=== PATIENT | male | born 1970 | race Caucasian/White ===

== ENCOUNTER 2020-04-03 20:48 | Inpatient (IN) ==
--- NOTE | 2020-04-03 21:03 | ED Telehealth Note ---
Telehealth Telehealth Telehealth Options: 2-way audio and video For the duration of the visit, provider was performing the assessment from: A different facility than the patient After establishing a telemedicine visit, patient was: Patient was verified with two unique identifiers, Patient/authorized rep acknowledged consent and understanding and Gave permission to continue telehealth session Impression & Plan Cellulitis Note/Exam/Outcome Date of Service April 03, 2020 ED Telehealth Outcome Referred to ED for in person visit ED Visit Note This is a 49-year-old male who presents to telehealth over concerns of the patient has a large wound to the right lower extremity. The patient is brought in by his sister. The sister notes that the patient does not normally see a doctor and does not take anything for diabetes blood pressure. I am concerned that the patient has bilateral leg swelling and may be suffering from congestive heart failure as well as cellulitis. I did review all of these concerns including my concern about hypertension with the patient. He does not normally see a doctor and is not plugged in with a doctor. Based on the wound to the leg I strongly recommended that the patient come to the emergency department and be started on IV antibiotics. Patient and sister are agreeable to coming in. General General: + awake, + alert, + tired, + ill appearing, + intoxicated appearing and + well appearing ENT ENT: + moist mucous membranes and + normal nose Eyes Eyes: + conjunctivae normal, + scleral icterus, + pupils pinpoint, + pupils dilated and + EOMI Neck Neck: + visual inspection of neck normal and + FROM Respiratory Respiratory: + normal respiratory effort Cardiac Cardiac: + peripheral edema GI GI: + distended Muskuloskeletal Muskuloskeletal: + head normocephalic, atraumatic Additional Notes: Large wound to Rt calf, swollen and weaping Neuro Neuro: + normal sensorium, + oriented x 3, + speech normal and + tower director II-XII intact bilaterally Skin Skin: + ecchymosis and + wound (Rt calf) Psych Psych: + appropriate, + normal mood, + normal affect and + normal thought process Past Med/Surg History Social History Smoking Status: Never smoker Preferred Language: Syriac Feels Safe at Home: Yes Allergies Allergies Allergy/AdvReac Type Severity Reaction Status Date / Time [id number] Allergy Unknown Uncoded 04/12/02 19:52 N Allergy Unknown Uncoded 04/12/02 19:52 Results & Data (ED) Laboratory Data Result diagrams: 04/03/20 22:30 04/03/20 22:30 Discharge Plan Visit Data Chief Complaint: Wound Stated Complaint: RT LEG WOUND, LE EDEMA, TOES TURNING PURPLE ED Provider: Abiel Campos Discharge Problem: Cellulitis Discharge Instructions Interventions: ED Discharge Assessment Last Done: 04/04/20 00:42 Forms Stand Alone Forms: [employer] Prescriptions Prescriptions: No Action ibuprofen 200 mg Tablet 200 mg PO Q6H PRN (Reason: Fever Or Pain) RF: 0 Referrals Referrals: PCP,NO [Primary Care Provider] - Discharge Problem: Cellulitis Qualifiers: Site of cellulitis: extremity Site of cellulitis of extremity: lower extremity Laterality: right Qualified Code(s): L03.115 - Cellulitis of right lower limb
[2020-04-03] MEDS ORDERED: PIPERACILLIN/TAZOBACTAM 4.5 GM/120 ML BAG IV ONE (22:33)
[2020-04-03] MEDS ORDERED: PIPERACILL/TAZOBAC CONSULT ACTIVE PRN (22:33)
[2020-04-03 22:44] LABS: Basophils # (auto) 0.01 K/uL (0-0.2); Basophils % (auto) 0.1 %; Eosinophils # (auto) 0.01 K/uL (0-0.5); Eosinophils % (auto) 0.1 %; Hematocrit (blood only) 44.6 % (42-52); Hemoglobin 14.4 g/dL (14.0-18.0); Immature Granulocytes # (auto) 0.03 K/uL (0.00-0.02); Immature Granulocytes % (auto) 0.3 %; Lymphocytes # (auto) 0.91 K/uL (1.2-3.4); Lymphocytes % (auto) 8.3 %; Mean Corpuscular Hgb Conc 32.3 g/dL (32-36); Mean Corpuscular Volume 86.8 fL (80-100); Mean Platelet Volume 13.4 fL (7.4-10.4); Monocytes # (auto) 0.98 K/uL (0.11-0.59); Neutrophils # (auto) 8.98 K/uL (1.4-6.5); Neutrophils % (auto) 82.2 %; Platelet Count 164 K/uL (130-400); RDW Coefficient of Variation 15.7 % (11.5-14.5); RDW Standard Deviation 50.2 fL (36.4-46.3); Red Blood Count 5.14 M/uL (4.7-6.1); White Blood Count 10.92 K/uL (4.8-10.8)
[2020-04-03] MEDS ORDERED: ONDANSETRON INJ 2 MG/ML 2 ML VIAL IV STA (22:57)
[2020-04-03] MEDS ORDERED: ACETAMINOPHEN 500 MG TAB PO STA (22:57)
[2020-04-03 23:01] LABS: Albumin Level 3.4 gm/dl (3.4-5.0); BUN Creatinine Ratio 17.1 (10-20); Calcium 9.1 mg/dl (8.5-10.1); Creatinine Clr Calc Pharmacy 96.3 ml/min; Est GFR (African American) 77.5; Est GFR (Non-African American) 66.8; Magnesium 2.1 mg/dl (1.8-2.4); Potassium 3.6 mmol/L (3.5-5.1)
[2020-04-03 23:06] LABS: Albumin Globulin Ratio 0.7 (0.9-2); Bilirubin,Total 0.9 mg/dl (0.2-1); Globulin 4.7 gm/dl (2.5-4.0); Total Protein 8.1 gm/dl (6.4-8.2); Troponin I 0.021 ng/ml (0-0.045)
[2020-04-03] MEDS: HYDROmorphone INJ 1 MG/ML SYRINGE IV PRN (23:10)
[2020-04-03 23:28] LABS: INR 1.3 (0.9-1.1); Partial Thromboplastin Time 27.4 Seconds (21.0-31.0); Prothrombin Time 12.7 Seconds (9.0-12.0)
[2020-04-03] MEDS ORDERED: VANCOMYCIN CONSULT ACTIVE PRN (23:55)
[2020-04-03] MEDS ORDERED: VANCOMYCIN HCL 1,000 MG in SODIUM CHLORIDE 0.9% 250 ML IV SCH (23:55)
--- NOTE | 2020-04-03 23:56 | History & Physical Report ---
Date of Service April 03, 2020 Assessment & Plan (1) Cellulitis: 49 yo M with no significant PMHx admitted for RLE cellulitis and dyspnea on exertion, noted to have bilateral pleural effusions on imaging. RLE cellulitis/wound: - Wound and blood cultures collected. Patient started on vanc/Zosyn. - Wound care nurse consult placed. - Suspect fairly rapid deescalation of antibiotics to orals when appropriate for discharge. Dyspnea on exertion/bilateral pleural effusions: - Noted on CXR and CTPE to have moderate sized bilateral pleural effusions. - Saturating well on room air, defer thoracentesis given bilateral and symmetric nature. - No history of CHF, TTE ordered for AM. - Possible element of OHS given BMI. Patient did not endorse snoring, may need evaluation for SOHA as well. - Lasix 40mg IV x1 given. Hyperglycemia: - Patient with BSG 130s on admission. - With morbid obesity as risk factor for diabetes. - A1c ordered with morning labs. HTN: - Noted in ER to have mild HTN. - Defer to PCP regarding management. Code Status: Full Code FEN/GI: Regular diet DVT ppx: Heparin 5000u q8h Dispo: Med/Surg for IV Abx, wound care consult, TTE in AM (2) Bilateral pleural effusion: (3) Dyspnea on exertion: (4) Hyperglycemia: History of Present Illness Chief Complaint: RLE wound, increased dyspnea on exertion Primary Care Provider: NO PCP 49-year-old male with no significant past medical history presented to ER via telemedicine visit for RLE wound. Reports that he started noticing on the back of his calf a small wound about a week ago, does not recall any trauma to the area, some yellowish drainage. Over the last several days it has grown in size. This was noticed by his sister and his mother and he was urged to seek medical treatment. After telemedicine visit with Dr. Campos patient was advised to come into ER for evaluation. On my interview, patient reports that over the last several weeks to months he has had dyspnea on exertion, specifically with walking up stairs such that he will have to stop and catch his breath after going to the top of the stairs which prior to this was unusual for him. No orth opnea. No known history of CHF. In the ER he had a CXR which showed findings suggestive of pleural effusion bilaterally. CT PE protocol performed given RLE swelling and erythema and shortness of breath, which showed atelectasis and moderate sized pleural effusions bilaterally. No PE noted. Ultrasound right lower extremity did not show signs suggestive of DVT. Lab work showed mild leukocytosis to 10.92, mildly elevated BSG to 130s. Patient was given one-time dose Dilaudid for right lower extremity pain and given Zosyn. Allergies Allergy/AdvReac Type Severity Reaction Status Date / Time No Known Drug Allergies Allergy . Verified 04/03/20 22:14 [id number] Allergy Unknown Unknown Uncoded 04/03/20 22:14 Home Medications Medication Instructions Recorded Confirmed Type ibuprofen 200 mg PO Q6H PRN 04/03/20 04/03/20 History Past Med/Surg History Social History Smoking Status: Never smoker Second Hand Exposure: No; Do You Dip or Chew Tobacco: No; Hx Alcohol Use: Yes Alcohol type: beer Hx Substance Use: No Preferred Language: Albanian Communication Ability: Effective Returns Processor Required: No Beliefs That Will Affect Care: None Current Living Situation: Parent Current Living Situation Comment: Lives with mother Other Information That Helps Us Care for You: No Feels Safe at Home: Yes Safety Concerns: Feels Safe At This Time Assistive Devices: Glasses Review of Systems Review of Systems: All systems reviewed & are unremarkable except as noted in HPI & below Constitutional: no fever, no chills and no malaise Respiratory: + dyspnea on exertion; no cough Cardiovascular: + edema (Bilateral lower extremities); no chest pain and no palpitations Gastrointestinal: no abdominal pain, no constipation and no diarrhea/loose stools Physical Exam Constitutional: well developed and + morbidly obese; no acute distress Eyes: PERRL, conjunctivae normal, anicteric sclerae ENMT: external ear and nose normal, oropharynx normal Neck: + short neck Respiratory: Poor air movement throughout, decreased breath sounds right > left. No wheezes noted. No cough. Noted to be saturating to 92% on room air. Cardiovascular: Rate/Rhythm: regular rhythm and + tachycardic Heart Sounds: no murmur Extremities: + edema (To mid sykes, 1+) Gastrointestinal (Abdomen): Inspection/Auscultation: + abdomen distended Percussion/Palpation: abdomen soft; abdomen nontender Musculoskeletal: No cyanosis or clubbing Skin: Posterior right lower extremity with 6x6cm wound with granulation tissue, with surrounding 1-2cm erythema. Tender and warm to the touch. Neurologic: AAOx3, normal speech. Bilateral UE, LE, and face without sensory or motor deficits. No tremor. Psychiatric: A+Ox3, euthymic affect Results & Data Results & Data ([facility]) Vital Signs (Past 12 Hours) Vital Signs Temp Pulse Resp BP BP Pulse Ox 04/03/20 22:33 16 144/92 H 98 04/03/20 21:59 36.3 C L 123 H 20 170/111 H 98 Code Status & VTE Plan VTE Prophylaxis Plan VTE Prophylaxis will be ordered: Yes Supervising Physician Co-Signing Physician Notes Attending addendum: I have physically seen this patient, have supervised the medical residents activities, and agree with the H&P unless as otherwise noted. Assessment and Plan: Right lower extremity cellulitis/wound- Empiric vancomycin IV and Zosyn IV Follow wound cultures and blood cultures Wound care consult Bilateral pleural effusions/dyspnea on exertion- Give Lasix 40 mg IV tonight Order echocardiogram to assess ejection fraction Hyperglycemia- Check hemoglobin A1c for BSG's 130s upon admission Morbid obesity- Risk factor modification Remaining orders and notations as noted Resident Activity Tracking Resident Involvement: Resident Care Provided Care Provided: Adult Hospital Medicine (1) Cellulitis Laterality: right Site of cellulitis: extremity Site of cellulitis of extremity: lower extremity Qualified Code(s): L03.115 - Cellulitis of right lower limb
[2020-04-04] MEDS ORDERED: OPTIRAY 320 125ml IV ONE (00:04)
--- NOTE | 2020-04-04 00:11 | Emergency Department Note ---
History of Present Illness General Chief complaint: Wound Stated complaint: RT LEG WOUND, LE EDEMA, TOES TURNING PURPLE Time Seen by Provider: 04/03/20 20:54 Source: patient, family (sister), RN notes reviewed and old records reviewed Mode of arrival: ambulatory Limitations: no limitations History of Present Illness Provider complaint: Leg wound Onset (ago): day(s) 2 Location: lower extremity and right Radiation: extremity Severity: moderate Pain Consistency: + constant Maximum Pain Intensity: 8 Current Pain Intensity: 8 Quality: + aching Relieved By: + immobilization and + rest Exacerbated By: + movement Associated symptoms: no chest pain, no fever/chills, no headaches, no nausea/vomiting, no shortness of breath and no weakness Treatments prior to arrival: none This is a 49-year-old male who presents the emergency department complaining of pain to the right lower extremity. The patient has a large wound here that developed in the past day. In addition to the wound the patient does not follow-up with a primary care physician. His blood pressure is here noted to be elevated Home Medications Medication Instructions Recorded Confirmed Type ibuprofen 200 mg PO Q6H PRN 04/03/20 04/03/20 History Allergies Allergy/AdvReac Type Severity Reaction Status Date / Time No Known Drug Allergies Allergy . Verified 04/03/20 22:14 [id number] Allergy Unknown Unknown Uncoded 04/03/20 22:14 Past Med/Surg History Social History Smoking Status: Never smoker Preferred Language: Yemeni Feels Safe at Home: Yes Review of Systems A total of 10 systems reviewed and were otherwise negative Physical Exam Vital Signs Vital Signs - 24 hr 04/03/20 21:59 04/03/20 22:33 04/03/20 23:03 Temperature 36.3 C L Temperature Source Temporal Artery Scan Pulse Rate 123 H Respiratory Rate 20 16 Respiratory Effort / Characteristics Non-Labored Spontaneous Non-Labored Spontaneous Respiratory Depth Normal Normal Blood Pressure 170/111 H Blood Pressure [Right Arm] 144/92 H Blood Pressure Mean 130 Blood Pressure Mean [Right Arm] 109 Pulse Oximetry 98 98 Oxygen Delivery Method Room Air Room Air Sepsis Recent Fever Within 48 Hours No Sepsis New/Unexplained Change in Mental Status N/A Sepsis Action Taken by Nursing No Action Required 04/03/20 23:30 Temperature Temperature Source Pulse Rate Respiratory Rate Respiratory Effort / Characteristics Non-Labored Spontaneous Respiratory Depth Blood Pressure Blood Pressure [Right Arm] Blood Pressure Mean Blood Pressure Mean [Right Arm] Pulse Oximetry Oxygen Delivery Method Sepsis Recent Fever Within 48 Hours Sepsis New/Unexplained Change in Mental Status Sepsis Action Taken by Nursing VITAL SIGNS - Vital signs and nursing notes were reviewed. GENERAL - 49-year-old male appearing stated age who is in no acute distress. Communicates well with provider and answers questions appropriately. SKIN - Rt calf wound approx 6"x4" HEAD - NC/AT. EYES - PERRL with EOMI bilaterally. Sclera anicteric. Palpebral conjunctiva pink and moist with no injection noted. EARS - No deformities of external structures noted on gross examination bilaterally. NOSE - Midline and without cyanosis. No epistaxis or purulent drainage noted. Septum midline without deviation or septal hematoma noted. MOUTH/OROPHARYNX - Without perioral cyanosis. Buccal mucosa pink and moist and without leukoplakia. Tongue midline with equal elevation of palate bilaterally. No tonsillar hypertrophy, erythema, or exudates noted. dentition noted. NECK - Neck with FROM. Supple to palpation. lymphadenopathy noted. No nuchal rigidity. LUNGS - Chest wall symmetric without accessory muscle use, intercostals retractions, or central cyanosis. Normal vesicular breath sounds CTA B/L. No wheezes, rales, or rhonchi appreciated. CARDIAC - RRR with S1/S2. No murmur, rubs, or gallops appreciated. ABDOMEN - Abdominal contour without pulsations or visible masses. BS normoactive all four quadrants. No tenderness, palpable masses, hepatosplenomega ly, or ascites noted. EXTREMITIES - +2 pitting edema b/l extremities NEUROLOGIC - Cranial nerves II through XII grossly intact. Sensory intact to light touch throughout. Patellar reflexes +2/4. PSYCH - A&Ox3 and cooperates fully with examiner. Pt is very pleasant and interacts well with examiner. Course Administered Medications Hydromorphone HCl (Hydromorphone Inj 1 Mg/Ml Syringe) 1 mg IV Q15M PRN PRN Reason: Pain Stop: 04/17/20 22:56 Last Admin: 04/04/20 00:24 Dose: 1 mg Documented by: [id number] Admin: 04/03/20 23:10 Dose: 1 mg Documented by: [id number] Vancomycin HCl 1,000 mg/ (Sodium Chloride) 270 mls @ 200 mls/hr IV Q12H [facility]; Protocol Stop: 04/10/20 23:54 Last Admin: 04/04/20 00:20 Dose: 200 mls/hr Documented by: [id number] Discontinued Medications Acetaminophen (Acetaminophen 500 Mg Tab) 1,000 mg PO NOW STA Stop: 04/03/20 22:58 Last Admin: 04/03/20 23:10 Dose: 1,000 mg Documented by: [id number] Piperacillin Sod/Tazobactam Sod (Zosyn) 4.5 gm in 120 mls @ 240 mls/hr IV NOW ONE Stop: 04/03/20 23:02 Last Infusion: 04/03/20 23:39 Dose: 0 mls/hr Documented by: [id number] Admin: 04/03/20 23:09 Dose: 240 mls/hr Documented by: [id number] Ioversol (Optiray 320 125ml) 125 ml IV ONCE ONE Stop: 04/04/20 00:05 Last Admin: 04/04/20 00:04 Dose: 95 ml Documented by: [id number] Ondansetron HCl (Ondansetron Inj 2 Mg/Ml 2 Ml Vial) 4 mg IV NOW STA Stop: 04/03/20 22:58 Last Admin: 04/03/20 23:10 Dose: 4 mg Documented by: [id number] Medical Decision Making Differential Diagnosis Cellulitis, abscess, MRSA infection, DVT, necrotizing fasciitis, dermatitis, drug eruption, allergic reaction, as well as other pathologies. Medical Records Attestation: I reviewed the patient's medical records. Home Medications Current Medication List: was personally reviewed by me Laboratory Data Attestation: I reviewed the patient's lab results. Result diagrams: 04/03/20 22:30 04/03/20 22:30 Lab Results 04/03/20 04/03/20 04/03/20 Range/Units 22:30 22:30 22:30 WBC 10.92 H (4.8-10.8) K/uL RBC 5.14 (4.7-6.1) M/uL Hgb 14.4 (14.0-18.0) g/dL Hct 44.6 (42-52) % MCV 86.8 (80-100) fL MCH 28.0 (25-34) pg MCHC 32.3 (32-36) g/dL RDW Std Deviation 50.2 H (36.4-46.3) fL RDW Coeff of Rupinder 15.7 H (11.5-14.5) % Plt Count 164 (130-400) K/uL MPV 13.4 H (7.4-10.4) fL Immature Gran % (Auto) 0.3 % Neut % (Auto) 82.2 % Lymph % (Auto) 8.3 % Josephine % (Auto) 9.0 % Eos % (Auto) 0.1 % Baso % (Auto) 0.1 % Neut # (Auto) 8.98 H (1.4-6.5) K/uL Lymph # (Auto) 0.91 L (1.2-3.4) K/uL Josephine # (Auto) 0.98 H (0.11-0.59) K/uL Eos # (Auto) 0.01 (0-0.5) K/uL Baso # (Auto) 0.01 (0-0.2) K/uL Immature Gran # (Auto) 0.03 H (0.00-0.02) K/uL PT (9.0-12.0) Seconds INR (0.9-1.1) APTT (21.0-31.0) Seconds PTT Ratio Sodium 139 (136-145) mmol/L Potassium 3.6 (3.5-5.1) mmol/L Chloride 107 (98-107) mmol/L Carbon Dioxide 24 (21-32) mmol/L Anion Gap 8.0 (3-11) BUN 22 H (7-18) mg/dl Creatinine 1.27 (0.6-1.4) mg/dl Est Cr Clr Drug Dosing 96.3 ml/min Est GFR ( Amer) 77.5 Est GFR (Non-Af Amer) 66.8 BUN/Creatinine Ratio 17.1 (10-20) Glucose 128 H (70-99) mg/dl Lactate 1.6 (0.4-2.0) mmol/L Calcium 9.1 (8.5-10.1) mg/dl Magnesium 2.1 (1.8-2.4) mg/dl Total Bilirubin 0.9 (0.2-1) mg/dl AST 11 L (15-37) U/L ALT 15 (12-78) U/L Alkaline Phosphatase 91 (45-117) U/L Troponin I 0.021 (0-0.045) ng/ml Total Protein 8.1 (6.4-8.2) gm/dl Albumin 3.4 (3.4-5.0) gm/dl Globulin 4.7 H (2.5-4.0) gm/dl Albumin/Globulin Ratio 0.7 L (0.9-2) Procalcitonin (0-0.5) ng/ml COVID-19 Eval Order SARS-CoV-2, RNA, NAAT (NEGATIVE) 04/03/20 04/03/20 04/03/20 Range/Units 22:52 22:52 23:19 WBC (4.8-10.8) K/uL RBC (4.7-6.1) M/uL Hgb (14.0-18.0) g/dL Hct (42-52) % MCV (80-100) fL MCH (25-34) pg MCHC (32-36) g/dL RDW Std Deviation (36.4-46.3) fL RDW Coeff of Rupinder (11.5-14.5) % Plt Count (130-400) K/uL MPV (7.4-10.4) fL Immature Gran % (Auto) % Neut % (Auto) % Lymph % (Auto) % Josephine % (Auto) % Eos % (Auto) % Baso % (Auto) % Neut # (Auto) (1.4-6.5) K/uL Lymph # (Auto) (1.2-3.4) K/uL Josephine # (Auto) (0.11-0.59) K/uL Eos # (Auto) (0-0.5) K/uL Baso # (Auto) (0-0.2) K/uL Immature Gran # (Auto) (0.00-0.02) K/uL PT 12.7 H (9.0-12.0) Seconds INR 1.3 H (0.9-1.1) APTT 27.4 (21.0-31.0) Seconds PTT Ratio 1.0 Sodium (136-145) mmol/L Potassium (3.5-5.1) mmol/L Chloride (98-107) mmol/L Carbon Dioxide (21-32) mmol/L Anion Gap (3-11) BUN (7-18) mg/dl Creatinine (0.6-1.4) mg/dl Est Cr Clr Drug Dosing ml/min Est GFR ( Amer) Est GFR (Non-Af Amer) BUN/Creatinine Ratio (10-20) Glucose (70-99) mg/dl Lactate (0.4-2.0) mmol/L Calcium (8.5-10.1) mg/dl Magnesium (1.8-2.4) mg/dl Total Bilirubin (0.2-1) mg/dl AST (15-37) U/L ALT (12-78) U/L Alkaline Phosphatase (45-117) U/L Troponin I (0-0.045) ng/ml Total Protein (6.4-8.2) gm/dl Albumin (3.4-5.0) gm/dl Globulin (2.5-4.0) gm/dl Albumin/Globulin Ratio (0.9-2) Procalcitonin < 0.05 (0-0.5) ng/ml COVID-19 Eval [id number] SARS-CoV-2, RNA, NAAT (NEGATIVE) 04/03/20 Range/Units 23:19 WBC (4.8-10.8) K/uL RBC (4.7-6.1) M/uL Hgb (14.0-18.0) g/dL Hct (42-52) % MCV (80-100) fL MCH (25-34) pg MCHC (32-36) g/dL RDW Std Deviation (36.4-46.3) fL RDW Coeff of Rupinder (11.5-14.5) % Plt Count (130-400) K/uL MPV (7.4-10.4) fL Immature Gran % (Auto) % Neut % (Auto) % Lymph % (Auto) % Josephine % (Auto) % Eos % (Auto) % Baso % (Auto) % Neut # (Auto) (1.4-6.5) K/uL Lymph # (Auto) (1.2-3.4) K/uL Josephine # (Auto) (0.11-0.59) K/uL Eos # (Auto) (0-0.5) K/uL Baso # (Auto) (0-0.2) K/uL Immature Gran # (Auto) (0.00-0.02) K/uL PT (9.0-12.0) Seconds INR (0.9-1.1) APTT (21.0-31.0) Seconds PTT Ratio Sodium (136-145) mmol/L Potassium (3.5-5.1) mmol/L Chloride (98-107) mmol/L Carbon Dioxide (21-32) mmol/L Anion Gap (3-11) BUN (7-18) mg/dl Creatinine (0.6-1.4) mg/dl Est Cr Clr Drug Dosing ml/min Est GFR ( Amer) Est GFR (Non-Af Amer) BUN/Creatinine Ratio (10-20) Glucose (70-99) mg/dl Lactate (0.4-2.0) mmol/L Calcium (8.5-10.1) mg/dl Magnesium (1.8-2.4) mg/dl Total Bilirubin (0.2-1) mg/dl AST (15-37) U/L ALT (12-78) U/L Alkaline Phosphatase (45-117) U/L Troponin I (0-0.045) ng/ml Total Protein (6.4-8.2) gm/dl Albumin (3.4-5.0) gm/dl Globulin (2.5-4.0) gm/dl Albumin/Globulin Ratio (0.9-2) Procalcitonin (0-0.5) ng/ml COVID-19 Eval Order SARS-CoV-2, RNA, NAAT NEGATIVE (NEGATIVE) Imaging Data Radiologist's Impression: 1 view of the chest was interpreted by me and is co ncerning for what appears to be a right-sided pleural effusion. CTA of the chest: Exam is limited for evaluation of the distal pulmonary arteries which are suboptimally visualized due to breathing artifact. No pulmonary embolus or aortic dissection. Moderate to large bilateral pleural effusions. Bilateral lower lobe atelectasis. Right middle lobe atelectasis. Vascular crowding. Mild cardiomegaly. Degenerative disease of the spine. Ascites otherwise the visualized upper abdominal structures are unremarkable. ECG Data Attestation: I personally reviewed and interpreted this ECG as follows: Indication: + SOB/dyspnea Rate (beats per minute): 105 Rhythm: + sinus tachycardia ECG Intervals/blocks: + Normal QT-c (481) ECG Findings: + Q waves (Septal) Comparison ECG Date: no prior available MDM Narrative Patient was seen and evaluated as above in room C7. Review was performed of nursing notes and vital signs. I did review pertinent previous visits and patient history. After obtaining a thorough history and physical examination the above work up was performed. This is a 49-year-old male who presents emergency department with concerns about a wound to his right lower extremity. In addition the patient is hypertensive. His troponin is also elevated his EKG is concerning for an old infarct. I did discuss all these findings with the hospitalist service who did agree to meet the patient in the meantime the patient was started on broad-spectrum antibiotics including Zosyn and daptomycin. He was given Dilaudid as well as Tylenol for the pain. Repeat examination revealed improvement the patient's symptoms. An order was placed for continuous cardiac monitoring. The monitor shows a rate of 100 with Normal Sinus rhythm. I attest that I have personally reviewed the patient medication list. The patient was evaluated during a period of high volume and high acuity while the hospital was at overcapacity during the global COVID-19 pandemic, and that diagnosis was suspected/considered upon their initial presentation. Their evaluation, treatment and testing was consistent with current guidelines for patients who present with complaints or symptoms that may be related to COVID- 19. Impression & Plan Cellulitis, Pleural effusion, Abnormal ECG Discharge Plan Visit Data Chief Complaint: Wound Stated Complaint: RT LEG WOUND, LE EDEMA, TOES TURNING PURPLE ED Provider: Abiel Campos Discharge Problem: Cellulitis, Pleural effusion, Abnormal ECG Patient Disposition: Admitted As Inpatient Discharge Instructions Interventions: ED Discharge Assessment Last Done: 04/04/20 00:42 Discharge Problem: Cellulitis Qualifiers: Site of cellulitis: extremity Site of cellulitis of extremity: lower extremity Laterality: right Qualified Code(s): L03.115 - Cellulitis of right lower limb
[2020-04-04] MEDS: HYDROmorphone INJ 1 MG/ML SYRINGE IV PRN (00:24)
[2020-04-04] MEDS ORDERED: ONDANSETRON INJ 2 MG/ML 2 ML VIAL IV PRN (01:30)
[2020-04-04] MEDS ORDERED: POLYETHYLENE (MIRALAX) 17 GM PACK PO PRN (01:30)
[2020-04-04] MEDS ORDERED: FUROSEMIDE 40 MG in SYRINGE 0 ML IV ONE (01:35)
[2020-04-04] MEDS ORDERED: VANCOMYCIN HCL 1,750 MG in SODIUM CHLORIDE 0.9% 500 ML IV SCH (02:00)
[2020-04-04] MEDS: PIPERACILLIN/TAZOBACTAM 4.5 GM in DEXTROSE 5% 100 ML IV SCH ×3 (03:52→20:49)
[2020-04-04 05:24] LABS: Appearance Urine Clear (Clear); Bacteria Urine Automated Negative (Negative); Blood Urine Negative (Negative); Color Urine Dark Yellow; Epithelial Cell Urine Auto >30 /lpf (0-5); Glucose Urine UA Negative (Negative); Ketones Urine Negative (Negative); Leukocyte Esterase Urine Trace (Negative); Nitrite Urine Negative (Negative); Protein Urine 2+ (Negative); RBC Urine Automated 0-4 /hpf (0-4); Specific Gravity Urine > 1.045 (1.000-1.030); Urobilinogen Urine Positive (Negative)
[2020-04-04 05:33] LABS: Bilirubin Urine 1+ (Negative)
[2020-04-04 05:47] LABS: Basophils # (auto) 0.01 K/uL (0-0.2); Basophils % (auto) 0.1 %; Hemoglobin 13.3 g/dL (14.0-18.0); Immature Granulocytes # (auto) 0.01 K/uL (0.00-0.02); Immature Granulocytes % (auto) 0.1 %; Lymphocytes # (auto) 0.65 K/uL (1.2-3.4); Lymphocytes % (auto) 6.7 %; Mean Corpuscular Hemoglobin 27.7 pg (25-34); Mean Corpuscular Hgb Conc 31.7 g/dL (32-36); Mean Corpuscular Volume 87.5 fL (80-100); Mean Platelet Volume 13.3 fL (7.4-10.4); Monocytes # (auto) 0.65 K/uL (0.11-0.59); Monocytes % (auto) 6.7 %; Neutrophils # (auto) 8.38 K/uL (1.4-6.5); Neutrophils % (auto) 86.4 %; Platelet Count 156 K/uL (130-400); RDW Coefficient of Variation 15.9 % (11.5-14.5); RDW Standard Deviation 51.4 fL (36.4-46.3)
[2020-04-04] MEDS: HEPARIN SOD 5,000 UNIT/0.5 ML VIAL SQ SCH ×3 (06:18→22:33)
[2020-04-04 06:25] LABS: Albumin Globulin Ratio 0.8 (0.9-2); Albumin Level 3.2 gm/dl (3.4-5.0); BUN Creatinine Ratio 17.3 (10-20); Bilirubin,Total 1.3 mg/dl (0.2-1); Calcium 8.2 mg/dl (8.5-10.1); Creatinine Clr Calc Pharmacy 91.2 ml/min; Est GFR (African American) 73.9; Est GFR (Non-African American) 63.8; Globulin 4.2 gm/dl (2.5-4.0); Total Protein 7.4 gm/dl (6.4-8.2)
--- NOTE | 2020-04-04 07:01 | Ultrasound Report ---
RIGHT LOWER EXTREMITY VENOUS DOPPLER CLINICAL HISTORY: Right leg swelling. COMPARISON STUDY: No previous studies for comparison. TECHNIQUE: Sonography of the deep venous system of the right lower extremity was performed. Compress ion and augmentation were evaluated. FINDINGS: Exam is compromised by suboptimal penetration particularly affecting visualization of the c krzysztof vessels. The right common femoral, superficial femoral and popliteal veins were compressible. Aug mentation was normal. Flow was shown within the deep calf vessels. IMPRESSION: Technically difficult exam but no evidence of deep venous thrombus within the right lower extremity. ACT 112: Negative or not required by law. Electronically signed by: Karthikeyan Freeman M.D. 04/04/2020 6:59 AM
[2020-04-04 07:20] LABS: Potassium 3.7 mmol/L (3.5-5.1)
--- NOTE | 2020-04-04 07:48 | XRay Report ---
SINGLE VIEW CHEST CLINICAL HISTORY: Sepsis. FINDINGS: An AP, portable, upright chest radiograph is obtained. No prior studies are available for c omparison at the time of dictation. The examination is mildly degraded by portable technique and valentine ent rotation. The heart is enlarged. There is pulmonary vascular congestion. There are right larger l eft pleural effusions with bibasilar consolidation. No pneumothorax is seen. The bony thorax is gross ly intact. IMPRESSION: 1. Cardiomegaly with evidence of congestive failure. 2. Right larger than left pleural effusions with bibasilar consolidation. ACT 112: Negative or not required by law. Electronically signed by: Daniel Duran M.D. 04/04/2020 7:46 AM
--- NOTE | 2020-04-04 07:51 | Hospitalist Progress Note ---
Date of Service April 04, 2020 Assessment & Plan (1) Cellulitis: Inder Faith is a 49 yo M with no significant PMHx who was admitted to [facility] on 04/03/2020 for RLE cellulitis and dyspnea on exertion. Gram-Positive Bactermia - wound culture positive for Group G Beta Strep, blood culture positive for GPC in chains x2 --> suspect bacteremia 2/2 cellulitis - given cellulitis as well as new diagnosis of diabetes (see below), continue Vanc/Zosyn. - Wound care consult - TTE without evidence of vegetation - consider ID consult and repeat blood cx for further w/u of endocarditis if not improving with abx Acute on Chronic HFrEF - ROMANO/orthopnea/LE edema for at least several weeks - TTE showed EF 25-30% with severe global hypokinesis of LV - new diagonsis of CHF - received Lasix 40mg IV x1 this AM, dyspnea is improved - consider further diur esis tomorrow - Entresto 24/26mg PO BID and Toprol XL 25mg PO daily - titrate as tolerated - Atorvastatin 40mg PO QAM and baby Aspirin started due to suspicion for ischemic cardiomyopathy - Cardiology consulted for further eval/management Bilateral Pleural Effusions - CTA Chest showing moderate sized bilateral pleural effusions - suspect transudative 2/2 CHF - consider diagnostic/therapeutic thoracentesis in the next few days, earlier if SOB worsens OHS/SOHA - morbid obesity, worsening ROMANO, TTE with elevated RVSP 40-50mmHg - high suspicion for these diagnoses, which may also be exacerbating heart disease - CPAP QHS - sleep study as outpatient T2DM - new diagnosis, A1c 7.4 - SSI while hospitalized - consider Metformin on discharge Dyslipidemia - new diagnosis, HDL 29 and Chol:HDL ratio 5 - Atorvastatin as above HTN - BP up to 170/111 in ED - Started Entresto/Toprol as above Code Status: Full Code FEN/GI: Regular diet DVT ppx: Heparin 5000u SQ Q8H Dispo: Med/Surg (2) Bilateral pleural effusion: (3) Dyspnea on exertion: (4) Hyperglycemia: Admission and Anticipated Discharge Date Admission Date: April 03, 2020 Supervising Physician Co-Signing Physician Notes I personally examined the patient and verified all richardson points of history and exam, discussed case, and agree with decision making with Dr Abelev. Fairly hard to get much of any HPI or review of systems. He has a pleasant demeanor but seems to have a little bit of a hard time understanding the situation, does a lot of nervous laughing and trying to make some jokes, but overall does not seem to have much as far as acute complaints. He does still seem to have a degree of dyspnea on exertion. Obviously still has a large leg ulcer. Vitals noted, in general he is awake alert pleasant no distress. HEENT normocephalic atraumatic mucous membranes moist. Breathing is unlabored no accessory muscle use good effort. Skin shows no pallor or icterus, he does have a large ulcer on the back of his calf that has some redness around it although no true tracking erythema. No focal neuro deficits. Labs and diagnostics noted. Right leg ulcer with gram-positive bacteremiagiven that he is a diabetic and has a distal leg ulcer that was foul-smelling, I at this time I feel compelled to cover for both gram-positive's that seem to be culprit, as well as the polymicrobial potential that is quite high. In that respect continue his current antibiotics for now. Consider switching out Zosyn for cefepime, but I suspect his creatinine will be stable. Echo does not show vegetation, he does not seem to show any bone or joint infections, will check repeat cultures tomorrow, once things are further speciated will ask ID for input as far as ongoing treatment and whether or not a KENDAL might be warranted. Newly diagnosed systolic CHFsuspect this is to a degree chronic possibly subacute at the shortest, given his general mild symptoms in spite of a severely reduced EF and large effusions, there is likely been building for quite some time. Diurese for the pulmonary edema, follow closely with the effusionsprobably at some point will need to at least have the one on the right, but given that he does not have severe dyspnea or acute hypoxia this is nonemergent. Start afterload reduction and beta blockers, diuresis, follow closely. The etiology could range from idiopathic to related to untreated SOHA, to ischemiccertainly he will warrant an ischemic work-up but we will need to take care of the bacteremia first. Appreciate cardiology input, case discussed with Dr. Damon New diagnosis type 2 [id number] is 7.4. Supplemental insulin here in the hospital, hopefully lifestyle change at home. Morbid obesity with a BMI of 48.9probably driving most of his comorbidities. We are trying to discuss not only his diagnoses and medications but also lifestyle change, it seems this will be fairly hard for him to truly comprehend, but he does live with his mother, and his sister is an RN here at the hospital, so hopefully as we enlist help of his family and try to make his plan of care very directed and easy to follow, we can hopefully help improve his situation. Otherwise as above. Subjective No acute events overnight. Reports RLE posterior calf wound worsening for at least 1-2 weeks with associated redness/warmth/tenderness and yellowish drainage. Also reports increasing ROMANO, LE edema, orthopnea for at least several weeks. Denies previous heart attack or heart disease. Denies fever/chills, chest pain/palpitations, current SOB at rest, cough, N/V, diarrhea, abdominal pain. Review of Systems Review of Systems: Pertinent positives and negatives mentioned in HPI. Physical Exam Physical Exam: General: A&Ox3. NAD. Cooperative. Morbidly obese. HEENT: Atraumatic, normocephalic. Pulm: No increased work of breathing/respiratory distress, faint lung sounds and faint crackles in bases bilaterally, -wheezes Cardiac: RRR, -mrg. Radial pulses intact and symmetrical. Abdominal: soft, non-tender, non-distended, BS x 4 Results & Data Results & Data ([facility]) Vital Signs (Past 12 Hours) Vital Signs Temp Pulse Pulse Resp BP BP BP 04/04/20 07:43 36.6 C 113 H 20 133/95 04/04/20 01:36 37.2 C 105 H 20 122/87 04/03/20 22:33 16 144/92 H 04/03/20 21:59 36.3 C L 123 H 20 170/111 H Pulse Ox 04/04/20 07:43 96 04/04/20 01:36 91 04/03/20 22:33 98 04/03/20 21:59 98 Resident Activity Tracking Resident Involvement: Resident Care Provided Care Provided: Adult Hospital Medicine (1) Cellulitis Laterality: right Site of cellulitis: extremity Site of cellulitis of extremity: lower extremity Qualified Code(s): L03.115 - Cellulitis of right lower limb
--- NOTE | 2020-04-04 07:55 | CT Scan Report ---
CT ANGIOGRAPHY OF THE CHEST, PULMONARY EMBOLUS PROTOCOL CLINICAL HISTORY: Lower extremity edema. COMPARISON STUDY: Chest radiograph performed earlier today. TECHNIQUE: Following IV administration of 95 mL of Optiray-320, helical axial images of the chest wer e obtained utilizing the pulmonary embolus protocol. Maximal intensity projections and sagittal and coronal reformats were viewed on an independent 3D workstation. IV contrast was administered without complication. Automated exposure control was utilized for the study. A dose lowering technique was utilized adhering to the principles of ALARA. CT DOSE: 1114.42 mGy.cm FINDINGS: No central or lobar pulmonary emboli are identified. The segmental and subsegmental pulmon amy arteries are suboptimally assessed due to respiratory motion. Note is made of moderate cardiomega ly. There is no pericardial effusion. Caliber of the thoracic aorta is normal. 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 No enlarged thoracic lesions are present. There is no pneum othorax. Large right and small left pleural effusions are noted. Right middle lobe and right lower lo be opacity represents atelectasis. There are mild groundglass opacities within the lungs. Lungs are s uboptimally assessed due to respiratory motion. Visualized portions of the upper abdomen demonstrate a small amount of ascites. There are several splenules. IMPRESSION: 1. No pulmonary emboli identified although segmental and subsegmental pulmonary arteries suboptimally assessed due to respiratory motion. 2. Large right and small left pleural effusions. 3. Moderate cardiomegaly. 4. Groundglass opacities within the lungs which may reflect mild pulmonary edema. 5. Small amount of upper abdominal ascites. ACT 112: Negative or not required by law. Electronically signed by: Karthikeyan Freeman M.D. 04/04/2020 7:54 AM
[2020-04-04 08:02] LABS: Estimated Average Glucose 166 mg/dl; Hemoglobin A1C 7.4 % (4.5-5.6)
[2020-04-04 08:34] LABS: Chol HDL Ratio 5; Cholesterol 136 mg/dl (0-200); HDL Cholesterol 29 mg/dl; LDL Cholesterol Calculated 90 mg/dl; Triglycerides 87 mg/dl (0-150); VLDL Cholesterol 17 mg/dl
--- NOTE | 2020-04-04 09:00 | Pharmacy Report ---
Pharmacy Abx Dose Short Note - Date of Service April 04, 2020 - Assessment & Plan Assessment 49 year old admitted with RLE cellulitis, dyspnea on exertion, noted to have bilateral pleural effusions on imaging. RLE with drainage noted per H&P. Started on vancomycin/zosyn. Blood cultures and leg culture pending. Plan Vancomycin * Received loading dose of vancomycin (1 gm in ED + 1750 mg x 1 once admitted = 2750 mg) ~20 mg/kg load * Will start vancomycin 1500 mg (~11 mg/kg/dose) IV q 10 hrs to achieve an estimated trough ~15 - 20 mcg/ml * Patient not candidate for vancomycin AUC nomogram dosing d/t to weight > 100 kg, used estimated kinetics to calculate dosing * Estimated kinetics: t1/2~9 hrs, ke~8.6 hr-1, crcl ~91. Less than traditional dosing selected as risk for drug accumulation high since BMI >35 kg/m2 * Will plan to order trough prior to the 3rd maintenance dose to ensure therapeutic Zosyn * 4.5 gm iv q 8 hrs - appropriate for CrCl >20 / no change Pharmacy will continue to follow and will adjust dose/frequency as necessary. Thank you.
[2020-04-04] MEDS: IBUPROFEN 200 MG TAB PO PRN (10:37)
--- NOTE | 2020-04-04 11:25 | XCELERA ---
[id number]
[2020-04-04] MEDS: VANCOMYCIN HCL 1,500 MG in SODIUM CHLORIDE 0.9% 500 ML IV SCH ×2 (11:58→22:29)
--- NOTE | 2020-04-04 13:32 | Electrocardiogram Report ---
Test Reason : Blood Pressure : / mmHG Vent. Rate : 105 BPM Atrial Rate : 105 BPM P-R Int : 162 ms QRS Dur : 114 ms QT Int : 364 ms P-R-T Axes : 066 -23 142 degrees QTc Int : 481 ms Poor data quality, interpretation may be adversely affected Sinus tachycardia Poor R wave progression, consider anterior HI vs. lead placement vs. LVH Non-specific intra-ventricular conduction delay Abnormal ECG No previous ECGs available Confirmed by Ranjeet Damon ([id number]) on 04/04/2020 1:32:07 PM Referred By: REFERRED SELF Confirmed By:Ranjeet Damon
[2020-04-04] MEDS ORDERED: GLUCOSE 10 TABS/TUBE PO PRN (13:59)
[2020-04-04] MEDS ORDERED: CARBOHYDRATES FOR HYPOGLYCEMIA PO PRN (13:59)
[2020-04-04] MEDS ORDERED: DEXTROSE 50% 50 ML SYRINGE IV PRN (13:59)
[2020-04-04] MEDS ORDERED: GLUCOSE 40% GEL 15 GM TUBE PO PRN (13:59)
[2020-04-04] MEDS ORDERED: GLUCAGON FOR INJ 1 MG VIAL SQ PRN (13:59)
--- NOTE | 2020-04-04 15:40 | Cardiology Consultation ---
Date of Consultation April 04, 2020 Assessment & Plan (1) Acute on chronic systolic (congestive) heart failure: -hypervolemia has likely been present since the onset of his symptoms in January. -moderate to severe global hypokinesis noted on echocardiogram. -large pleural effusions, interstitial edema, and pitting edema to the thighs bilaterally. -would initiate diuretic, beta-lamar, and ACEI/ARB therapies. -will discuss cardiac catheterization next week. (2) Bilateral pleural effusion: -moderate pleural effusion suggests LV dysfunction has been present for some time. (3) Abnormal ECG: -left axis deviation, interventricular conduction delay, and poor R-wave progression across the anterior precordium. History of Present Illness Attending Physician: Hubert Neumann DO History of Present Illness Mr. Faith is a 49-year-old male admitted earlier today because of a left lower extremity wound, exertional dyspnea, and bilateral pleural effusions. This consultation was ordered to assist in his cardiac management. The patient is a poor historian, however, his sister, Wendy is at the bedside. The patient's recent history began just prior to the when he was noticing dyspnea with exertion such as climbing stairs. Unfortunately, his exertional dyspnea progressed. He also noticed an increase in his lower extremity edema. The patient injured his left lower extremity several weeks ago. He now has an open wound and is on intravenous antibiotics. His workup included a CT scan of chest which note significant cardiomegaly, large bilateral pleural effusions, and evidence of interstitial edema. The patient has not experienced any exertional chest pain. He further denies PND and orthopnea. He has not experienced any syncope, presyncope, palpitations, or claudication. The patient has never known of a cardiac event. He has never had a cardiac catheterization. Past medical and surgical history 1. Hypertension 2. Diabetes mellitus 3. Full mouth teeth extractions 4. Undiagnosed personality/psychiatric disorder Social history Single, lives with his mother Does not work No tobacco or alcohol Family history Father at 54 from cardiac causes. Mother is 65 and healthy Sister is healthy Review systems A 10 point review systems was undertaken and negative except for that described above. Allergies Allergy/AdvReac Type Severity Reaction Status Date / Time No Known Drug Allergies Allergy . 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 HEENT exam is negative. Neck is supple with full carotid upstrokes. No carotid bruits. Jugular venous pressure is difficult to assess. Cardiovascular exam reveals a regular rhythm with distant heart sounds. No obvious murmurs. No S3. Lungs note decreased breath sounds at bases but no rales, rhonchi, or wheezes. Abdomen is obese without bruits. Extremities note intact radial artery pulses bilaterally. There is 3+ pedal, 2+ pretibial, and 1+ thigh edema bilaterally. Results & Data ([facility]) Vital Signs (Past 12 Hours) Vital Signs Temp Pulse Resp BP BP Pulse Ox 04/04/20 14:02 37.5 C 101 H 18 106/68 94 04/04/20 07:43 36.6 C 113 H 20 133/95 96 Laboratory Results CBC notes hemoglobin 13.3, hematocrit 42.0, white count 9.7, platelet count [id number]. Electrolytes note a sodium of 140, potassium 3.7, chloride 109, bicarb 24, BUN 23, creatinine 1.32, and glucose of 166. Troponin I level is 0.021 Diagnostic Findings EKG notes sinus tachycardia with a left axis deviation, and interventricular conduction delay, and poor R-wave progression across the anterior precordium. Echocardiogram notes moderate to severe left ventricular dysfunction with ejection fraction of 25-30% and global hypokinesis. There is ongo-of-trmjbflw tricuspid regurgitation and a large left-sided pleural effusion. Chest x-ray notes significant cardiomegaly. CT scan of the chest notes moderate cardiomegaly, interstitial edema, and bilateral pleural effusions. PG Care Time/CCT Total # of Minutes Spent Total Time Spent with Patient: Total time spent is greater than 50% in coordination of care (as documented) at patient's floor/unit and/or counseling patient: Coding Level of Care Code 67660 Inpt Consult Level 4 Diagnoses Acute on chronic systolic (congestive) heart failure I50.23 Bilateral pleural effusion J90 Abnormal ECG R94.31
--- NOTE | 2020-04-04 16:02 | Billing Data ---
Date of Service April 04, 2020 Coding Level of Care Code 11710 Subseq Hosp Care Lvl 3
[2020-04-04] MEDS: INSULIN ASPART 100 UNITS/ML 3 ML PEN SC SCH ×2 (18:05→21:21)
--- NOTE | 2020-04-04 19:29 | Billing Data ---
Date of Service April 04, 2020 Coding Level of Care Code 72690 Initial Inpt Care Lvl 3
[2020-04-04] MEDS: SACUBITRIL-VALSARTAN 24-26 MG TAB PO SCH (20:56)
[2020-04-04] MEDS ORDERED: METOPROLOL TARTRATE 25 MG TAB PO SCH (21:00)
[2020-04-05] MEDS: ACETAMINOPHEN 325 MG TAB PO PRN ×2 (05:39→22:38)
[2020-04-05] MEDS: HEPARIN SOD 5,000 UNIT/0.5 ML VIAL SQ SCH ×2 (06:12→13:01)
--- NOTE | 2020-04-05 07:01 | Hospitalist Progress Note ---
Date of Service April 05, 2020 Assessment & Plan (1) Cellulitis: Inder Faith is a 49 yo M with no significant PMHx who was admitted to [facility] on 04/03/2020 for RLE cellulitis and dyspnea on exertion and found to be bacteremic. Improving. Gram-Positive Bactermia / cellulitis - wound culture positive for Group G Beta Strep, blood culture positive for GPC in chains x2 - given cellulitis as well as new diagnosis of diabetes (see below), started Vanc/Zosyn. - 04/05/20 will continue gram neg coverage given DM and LE wound. starting at 04/06/20 ~midnight, will switch abx to Dapto q24 (not covering pulmonary) and ceftriaxone q24 (gram neg, but not covering pseudomonas) because of patient intolerance of multiple administrations (he pulled out IV access previous night). - urine culture no growth - Wound care consult - TTE without evidence of vegetation - consider ID consult and repeat blood cx for further w/u of endocarditis if not improving with abx. will wait until sensitivities until placing consult. RLE cellulitis, improving - pain level improving and tolerating palpaiton w/o much pain 04/05/20. - see above continue abx as per above. Acute on Chronic HFrEF - ROMANO/orthopnea/LE edema for at least several weeks - TTE showed EF 25-30% with severe global hypokinesis of LV - new diagonsis of CHF - received Lasix 40mg IV x1 this AM, dyspnea is improved - consider further diuresis tomorrow - Entresto 24/26mg PO BID and Toprol XL 25mg PO daily - titrate as tolerated - Atorvastatin 40mg PO QAM and baby Aspirin started due to suspicion for ischemic cardiomyopathy - 04/05/20 0700AM 24 hr Is/Os. 2060mL in 875mL out. cumulative 3L in. 1.2L out. - Cardiology consulted for further eval/management. - 04/05 per cardiology, hypervolemia from acute on chronic chf since January. diuretic, BB, acei/arb. discuss cardiac cath next wk. mod pleural effusion indicative longer term LV dysfunction - lasix 40 IV AM 04/05/20. continue assessing vol status and will give prn Bilateral Pleural Effusions - CTA Chest showing moderate sized bilateral pleural effusions - suspect transudative 2/2 CHF - consider diagnostic/therapeutic thoracentesis in the next few days, earlier if SOB worsens OHS/SOHA - morbid obesity, worsening ROMANO, TTE with elevated RVSP 40-50mmHg - high suspicion for these diagnoses, which may also be exacerbating heart disease - CPAP QHS - sleep study as outpatient T2DM - new diagnosis, A1c 7.4 - SSI while hospitalized - consider Metformin on discharge Dyslipidemia - new diagnosis, HDL 29 and Chol:HDL ratio 5 - Atorvastatin as above HTN - BP up to 170/111 in ED - Started Entresto/Toprol as above FEN/GI: Regular dm2 diet. added low sodium qualifier 04/05/20 DVT ppx: Heparin 5000u SQ Q8H switched to q24 Lovenox 40 sq 04/05/20 Code Status: Full Code Dispo: Med Surg (2) Bilateral pleural effusion: (3) Dyspnea on exertion: (4) Hyperglycemia: Admission and Anticipated Discharge Date Admission Date: April 03, 2020 Supervising Physician Co-Signing Physician Notes I personally examined the patient and verified all richardson points of history and exam, discussed case, and agree with decision making with Dr Galvan. Complains of some abdominal bloating, he relates it to his heparin subcu, but notes that it feels better with flatus. Notes that his leg still hurts where the ulcer is. Notes that he was not able to get much sleep last night because his mind was racing about things. When asked what about he related some of it was the medical stuff but some of it the world in general. He has a lot of pressured speech today. He complains a lot about the setting of the thermostat. Is fairly difficult to get much of a history or have much of a discussion with today. But he certainly tried. Vitals noted, in general he is awake alert pleasant no distress. HEENT normocephalic atraumatic mucous membranes moist. Breathing is unlabored no accessory muscle use good effort. Skin shows no pallor or icterus, leg ulcer now dressed, no tracking erythema. Ongoing leg edema. Labs and diagnostics noted. Right leg ulcer with gram-positive bacteremiacontinue polymicrobial coveragegiven lack of sepsis and after further consideration and review, I believe we can downgrade from antipseudomonal coverage. Given his concern/agitation with getting repeated dosing of things and his thought that the more he gets something less effective it will be, combined with the fact that it would be totally appropriate therapywe will cover for gram-negative's with ceftriaxone, and change gram-positive coverage to daptomycin so that is once a day instead of ongoing dosing. Hopefully this will provoke less agitation. It will also allow for an easier transition to outpatient therapy if MRSA coverage is still needed. We will consult infectious disease for assistance in ongoing antibiotic management once full sensitivities have returned Newly diagnosed systolic CHFsuspect this is to a degree chronic possibly subacute at the shortest, given his general mild symptoms in spite of a severely reduced EF and large effusions, there is likely been building for quite some time. Diurese again today for the pulmonary edema since he had a little bit of rales earlier for Dr. Galvan, fortunately this is cleared by the time I see him, follow closely with the effusionsprobably at some point will need to at least have the one on the right, but given that he does not have severe dyspnea or acute hypoxia this is nonemergent. Continue afterload reduction and beta blockers, diuresis as above, follow closely. The etiology could range from idiopathic to related to untreated SOHA, to ischemiccertainly he will warrant an ischemic work-up but we will need to take care of the bacteremia first. New diagnosis type 2 [id number] is 7.4. Supplemental insulin here in the hospital (sugars reasonable), hopefully lifestyle change at home. Tried to emphasize thiswas able to at least focus a little on the fact that regular soda would be heavily driving diabetes. Venous stasisI discussed with him frankly and repeatedly whenever he was talk about the swelling in his legs that diuretics will likely affect very little change in this. But rather helping him with weight loss and movement will be what assists in reducing the leg swelling. Morbid obesity with a BMI of 48.9probably driving most of his comorbidities. We are trying to discuss not only his diagnoses and medications but also lifestyle change, it seems this will be fairly hard for him to truly comprehend, but he does live with his mother, and his sister is an RN here at the hospital, so hopefully as we enlist help of his family and try to make his plan of care very directed and easy to follow, we can hopefully help improve his situation. Otherwise as above I personally called his sister to update her, and also obtained his mother's phone numberher name is Afshan, and her number is [phone], I let his sister know I plan on calling his mom tomorrow. Subjective Per nursing overnight, refused meds and self-removed IV site access due to discomfort of infusions and annoyance of being disturbed. In AM, new IV site placed and meds were continued. Toes tingling. Diaphoresis and chills. Eating breakfast. tiny BM yesterday. + abd bloating, good relief by flatus. Current pain level is 5/10 at lower extremity, improving Review of Systems Review of Systems: Constitutional: Denies fever Eyes: Denies blurry vision Cardiovascular: Denies chest pain, palpitations Respiratory: Denies shortness of breath Gastrointestinal: Denies abdominal pain, nausea, vomiting, diarrhea. + bloating and constipation. Genitourinary: Denies urinary symptoms including dysuria Musculoskeletal: both legs feel weaker, not new. Neurological: Denies headache Physical Exam Physical Exam: General: Grossly A&O. NAD. Cooperative. Obese HEENT: Atraumatic, normocephalic. No obvious jvd Pulm: Mild inspiratory crackles. No respiratory distress. Cardiac: RRR, -mrg. BLE 3+ edema. LE swelling from feet to knees. Abdominal: Nontender, nondistended, soft. + bs. Integ: Multiple superficial skin ulcers of calves/shins. R lateral lower leg has bandage. Not tender to palpation. Petechiae, mild, at dorsal feet, worse on R. Results & Data Results & Data ([facility]) Vital Signs (Past 12 Hours) Vital Signs Temp Pulse Pulse Resp BP BP Pulse Ox 04/04/20 23:26 101 H 20 96 04/04/20 23:15 37.3 C 96 H 22 123/80 95 04/04/20 20:53 107 H 136/91 Resident Activity Tracking Resident Involvement: Resident Care Provided Care Provided: Adult Hospital Medicine (1) Cellulitis Laterality: right Site of cellulitis: extremity Site of cellulitis of extremity: lower extremity Qualified Code(s): L03.115 - Cellulitis of right lower limb
[2020-04-05] MEDS ORDERED: VANCOMYCIN TROUGH ONE (07:30)
[2020-04-05 08:16] LABS: BUN Creatinine Ratio 15.7 (10-20); Calcium 8.6 mg/dl (8.5-10.1); Creatinine Clr Calc Pharmacy 92.6 ml/min; Est GFR (African American) 75.3; Potassium 3.8 mmol/L (3.5-5.1)
[2020-04-05 08:17] LABS: Phosphorus 3.2 mg/dl (2.5-4.9)
--- NOTE | 2020-04-05 08:52 | Pharmacy Report ---
Pharmacy Abx Dose Short Note - Date of Service April 05, 2020 - Assessment & Plan Assessment 49 year old admitted with RLE cellulitis, dyspnea on exertion, noted to have bilateral pleural effusions on imaging. RLE with drainage noted per H&P. Started on vancomycin/zosyn. * 2 of 2 blood cultures growing GPC in chains. * Leg culture growing Group G beta strep * Urine culture pending * No change in renal function. Plan Vancomycin * Trough level of 23.6 mcg/mL is supratherapeutic * Change to 1250 mg (9mg/kg) IV every 12 hours * Goal trough level : 15 to 20 mcg/mL * Trough level ordered for: 04/06/20 @1130 Zosyn * Continues 4.5gm q8h Pharmacy will continue to follow and will adjust dose/frequency as necessary. Thank you.
[2020-04-05] MEDS: INSULIN ASPART 100 UNITS/ML 3 ML PEN SC SCH ×4 (09:02→21:42)
[2020-04-05] MEDS: ATORVASTATIN 40 MG TAB PO SCH (09:04)
[2020-04-05] MEDS: ASPIRIN 81 MG ECTAB PO SCH (09:04)
[2020-04-05 09:05] LABS: Platelet Count 121 K/uL (130-400); White Blood Count 9.35 K/uL (4.8-10.8)
[2020-04-05] MEDS: SACUBITRIL-VALSARTAN 24-26 MG TAB PO SCH ×2 (09:05→21:27)
[2020-04-05] MEDS: METOPROLOL SUCC 25MG EXT REL TAB PO SCH (09:05)
[2020-04-05 09:06] LABS: Platelet Estimate Decreased (Normal)
[2020-04-05 09:15] LABS: Hematocrit (blood only) 41.1 % (42-52); Hemoglobin 13.1 g/dL (14.0-18.0); Red Blood Count 4.78 M/uL (4.7-6.1)
[2020-04-05 09:16] LABS: Mean Corpuscular Hemoglobin 27.4 pg (25-34); Mean Corpuscular Hgb Conc 31.9 g/dL (32-36)
[2020-04-05 09:17] LABS: RDW Coefficient of Variation 15.7 % (11.5-14.5); RDW Standard Deviation 49.6 fL (36.4-46.3)
[2020-04-05 09:18] LABS: Mean Platelet Volume 13.5 fL (7.4-10.4)
[2020-04-05 09:19] LABS: Basophils % (auto) 0.2 %; Eosinophils % (auto) 0.1 %; Lymphocytes % (auto) 14.2 %; Monocytes % (auto) 9.5 %; Neutrophils % (auto) 75.5 %
[2020-04-05 09:20] LABS: Basophils # (auto) 0.02 K/uL (0-0.2); Eosinophils # (auto) 0.01 K/uL (0-0.5); Lymphocytes # (auto) 1.33 K/uL (1.2-3.4); Monocytes # (auto) 0.89 K/uL (0.11-0.59); Neutrophils # (auto) 7.05 K/uL (1.4-6.5)
[2020-04-05 09:22] LABS: Immature Granulocytes % (auto) 0.5 %
[2020-04-05 09:23] LABS: Immature Granulocytes # (auto) 0.05 K/uL (0.00-0.02)
[2020-04-05] MEDS: PIPERACILLIN/TAZOBACTAM 4.5 GM in DEXTROSE 5% 100 ML IV SCH ×2 (10:50→17:50)
[2020-04-05] MEDS ORDERED: Nursing to Pharmacy Communication SCH (11:30)
[2020-04-05] MEDS ORDERED: VANCOMYCIN HCL 1,250 MG in SODIUM CHLORIDE 0.9% 250 ML IV SCH (12:00)
[2020-04-05] MEDS ORDERED: FUROSEMIDE 40 MG in SYRINGE 0 ML IV ONE (17:15)
--- NOTE | 2020-04-05 18:44 | Billing Data ---
Date of Service April 05, 2020 Coding Level of Care Code 92528 Subseq Hosp Care Lvl 3
[2020-04-05] MEDS: POLYETHYLENE (MIRALAX) 17 GM PACK PO SCH (21:17)
[2020-04-05] MEDS: traZODone HCL 50 MG TAB PO SCH (21:29)
[2020-04-05] MEDS: ENOXAPARIN INJ 40 MG/0.4 ML SYR SQ SCH (21:30)
[2020-04-05] MEDS: DAPTOmycin 550 MG in SYRINGE 0 ML IV SCH (23:15)
[2020-04-06] MEDS: cefTRIAXone SODIUM 2,000 MG in DEXTROSE 5% 50 ML IV SCH (01:16)
[2020-04-06 06:07] LABS: Mean Corpuscular Hgb Conc 31.7 g/dL (32-36)
[2020-04-06 06:34] LABS: Hematocrit (blood only) 40.4 % (42-52); Hemoglobin 12.8 g/dL (14.0-18.0); Mean Corpuscular Hemoglobin 27.5 pg (25-34); Mean Corpuscular Volume 86.9 fL (80-100); RDW Standard Deviation 50.8 fL (36.4-46.3); Red Blood Count 4.65 M/uL (4.7-6.1); White Blood Count 8.64 K/uL (4.8-10.8)
[2020-04-06 06:37] LABS: Albumin Level 2.4 gm/dl (3.4-5.0); BUN Creatinine Ratio 16.6 (10-20); Calcium 8.2 mg/dl (8.5-10.1); Creatinine Clr Calc Pharmacy 109.5 ml/min; Est GFR (African American) 92.2; Est GFR (Non-African American) 79.5; Potassium 3.5 mmol/L (3.5-5.1)
[2020-04-06 06:38] LABS: Basophils # (auto) 0.02 K/uL (0-0.2); Basophils % (auto) 0.2 %; Eosinophils # (auto) 0.04 K/uL (0-0.5); Eosinophils % (auto) 0.5 %; Immature Granulocytes # (auto) 0.02 K/uL (0.00-0.02); Immature Granulocytes % (auto) 0.2 %; Lymphocytes # (auto) 1.28 K/uL (1.2-3.4); Lymphocytes % (auto) 14.8 %; Mean Platelet Volume 13.5 fL (7.4-10.4); Monocytes # (auto) 0.87 K/uL (0.11-0.59); Monocytes % (auto) 10.1 %; Neutrophils # (auto) 6.41 K/uL (1.4-6.5); Neutrophils % (auto) 74.2 %; Platelet Count 155 K/uL (130-400); Platelet Estimate Decreased (Normal)
[2020-04-06 06:44] LABS: Albumin Globulin Ratio 0.6 (0.9-2); Bilirubin,Total 0.7 mg/dl (0.2-1); Globulin 3.8 gm/dl (2.5-4.0); Total Protein 6.2 gm/dl (6.4-8.2)
[2020-04-06] MEDS: ACETAMINOPHEN 325 MG TAB PO PRN ×2 (07:18→19:36)
--- NOTE | 2020-04-06 07:18 | Hospitalist Progress Note ---
Date of Service April 06, 2020 Assessment & Plan (1) Cellulitis: Inder Faith is a 49 yo M with no significant PMHx who was admitted to [facility] on 04/03/2020 for GPC Bacteremia 2/2 RLE cellulitis and new systolic CHF - Improving. Gram-Positive Bactermia 2/2 cellulitis - wound culture positive for Group G Beta Strep (bui-sensitive) and MSSA, blood culture positive for Group G Beta Strep (bui-sensitive) as well - patient has intolerance of frequent IV med dosing - was on Dapto/Rocephin as of today given this intolerance --> will downgrade to Rocephin given above speciation/sensitivities, as Rocephin should adequately cover well for bacteremia and should be sufficient for cellulitis (and is once daily dosing) - monitor wound and SIRS criteria for signs of worsening, CBC daily - TTE without evidence of vegetation - consider ID consult and repeat blood cx for further w/u of endocarditis if not improving with abx. RLE cellulitis, improving - pain level improving and tolerating palpaiton w/o much pain 04/05/20. - Rocephin IV as above Acute on Chronic HFrEF - ROMANO/orthopnea/LE edema for at least several weeks, TTE showed EF 25-30% with severe global hypokinesis of LV - new diagonsis of CHF - received Lasix 40mg IV x1 this AM, dyspnea is improved - consider further diuresis tomorrow - Entresto 24/26mg PO BID and Toprol XL 25mg PO daily - titrate as tolerated - Atorvastatin 40mg PO QAM and baby Aspirin started due to suspicion for ischemic cardiomyopathy - Cardiology consulted for further eval/management. Bilateral Pleural Effusions - CTA Chest showing moderate sized bilateral pleural effusions, repeat CXR on 04/06 showing slight interval decrease in right - suspect transudative 2/2 CHF - consider diagnostic/therapeutic thoracentesis in the next few days, earlier if SOB worsens Morbid Obesity - worsening ROMANO, TTE with elevated RVSP 40-50mmHg - high suspicion for underlying SOHA/OHS, which may also be exacerbating heart disease - CPAP QHS - sleep study as outpatient T2DM - new diagnosis, A1c 7.4 - SSI while hospitalized - consider Metformin on discharge Dyslipidemia - new diagnosis, HDL 29 and Chol:HDL ratio 5 - Atorvastatin as above HTN - BP up to 170/111 in ED - Started Entresto/Toprol as above FEN/GI: DM2 DVT ppx: Lovenox 40mg SQ Q24H Code Status: Full Code Dispo: Med/Surg (2) Bilateral pleural effusion: (3) Dyspnea on exertion: (4) Hyperglycemia: Admission and Anticipated Discharge Date Admission Date: April 03, 2020 Supervising Physician Co-Signing Physician Notes I personally examined the patient and verified all richardson points of history and exam, discussed case, and agree with decision making with Dr Mao. Did not sleep well last night, also did not take trazodone because he did not want to be knocked out while he was getting IV antibiotics. A little better able to focus today. Leg seems to be about the same. Vitals noted, in general he is awake alert pleasant no distress. HEENT normoc ephalic atraumatic mucous membranes moist. Breathing is unlabored no accessory muscle use good effort. No focal neuro deficits. Right leg ulcer with gram-positive bacteremiacontinue polymicrobial coveragegiven lack of sepsis and after further consideration and review, we have downgraded from antipseudomonal coverage. Given his concern/agitation with getting repeated dosing of things something that is once daily seems ideal. Given that he is growing beta-lactam sensitive staph and cephalosporin sensitive strep, and that his blood cultures are cephalosporin sensitive, we will continue treatment with ceftriaxone and follow closely clinically. Newly diagnosed systolic CHFsuspect this is to a degree chronic possibly subacute at the shortest, given his general mild symptoms in spite of a severely reduced EF and large effusions, there is likely been building for quite some time. Diurese yet again today for the pulmonary edema since he is still showing symptomatic improvement with diuresis and his creatinine has not yet shown any rise, follow closely with the effusionsprobably at some point will need to at least have the one on the right, but given that he does not have severe dyspnea or acute hypoxia this is nonemergent. Continue afterload reduction and beta blockers, diuresis as above, follow closely. The etiology could range from idiopathic to related to untreated SOHA, to ischemiccertainly he will warrant an ischemic work-up but we will need to take care of the bacteremia first. Will need sleep study as an outpatient New diagnosis type 2 [id number] is 7.4. Supplemental insulin here in the hospital (sugars reasonable), hopefully lifestyle change at homeit appears that soda is largely his biggest culprit. His mother notes he also eats a lot of bread. We discussed that it would be likely that he could regress to "prediabetic" or better just with quitting soda, and given how mild his diabetes is in spite of his lifestyle, that he really would be an ideal candidate for "cure" with lifestyle change if he is amenable. Venous stasishave discussed this now directly with patient and mother. Discussed that swelling likely will not go down until movement and weight loss have been affected. Discussed the limited role for diuretics in improvement in venous stasis. Morbid obesity with a BMI of 48.9probably driving most of his comorbidities. We are trying to discuss not only his diagnoses and medications but also lifestyle change, it seems this will be fairly hard for him to truly comprehend, but he does live with his mother, and his sister is an RN here at the hospital, so hopefully as we enlist help of his family and try to make his plan of care very directed and easy to follow, we can hopefully help improve his situation. Otherwise as above, greater than 30-minute phone call (approximately 31-32phone call from about 550 to about 6:22 PM) to motherupdating on diagnoses and plans.her name is Afshan, and her number is [phone] Subjective No acute events overnight. Reports improvement in SOB after Lasix yesterday. Reports minimal RLE wound pain. Denies fever/chills, chest pain/palpitations, current SOB at rest, cough, N/V, diarrhea, abdominal pain. Review of Systems Review of Systems: Pertinent positives and negatives mentioned in HPI Physical Exam Physical Exam: General: A&Ox3. NAD. Cooperative. Morbidly obese. HEENT: Atraumatic, normocephalic. Pulm: No increased work of breathing/respiratory distress, faint lung sounds bilaterally, -wheezes Cardiac: RRR, -mrg. Radial pulses intact and symmetrical. Abdominal: soft, non-tender, non-distended, BS x 4 Results & Data Results & Data ([facility]) Vital Signs (Past 12 Hours) Vital Signs Temp Pulse Pulse Resp BP BP Pulse Ox 04/06/20 07:09 36.8 C 99 H 16 125/84 95 04/05/20 23:23 105 H 18 96 04/05/20 23:00 37.1 C 108 H 22 118/63 97 04/05/20 21:21 109 H 123/87 Resident Activity Tracking Resident Involvement: Resident Care Provided Care Provided: Adult Hospital Medicine (1) Cellulitis Laterality: right Site of cellulitis: extremity Site of cellulitis of extremity: lower extremity Qualified Code(s): L03.115 - Cellulitis of right lower limb
[2020-04-06] MEDS: INSULIN ASPART 100 UNITS/ML 3 ML PEN SC SCH ×4 (09:16→21:16)
[2020-04-06] MEDS: METOPROLOL SUCC 25MG EXT REL TAB PO SCH (09:18)
[2020-04-06] MEDS: SACUBITRIL-VALSARTAN 24-26 MG TAB PO SCH ×2 (09:18→21:19)
[2020-04-06] MEDS: ASPIRIN 81 MG ECTAB PO SCH (09:18)
[2020-04-06] MEDS: ATORVASTATIN 40 MG TAB PO SCH (09:18)
[2020-04-06] MEDS: POLYETHYLENE (MIRALAX) 17 GM PACK PO SCH ×2 (09:28→21:19)
--- NOTE | 2020-04-06 10:26 | XRay Report ---
XR chest 1V portable HISTORY: 49 years-old Male F/u pleural effusion acute shortness of breath COMPARISON: Chest radiograph and CTA chest study is 04/03/2020 TECHNIQUE: Semiupright portable AP view of the chest FINDINGS: Hypoinflation. Cardiomegaly with pulmonary vascular congestion. Right greater left pleural effusions with bibasilar consolidation. No significant change from comparison. No pneumothorax. Degenerative ch anges of the shoulders and spine. Sigmoidal thoracolumbar scoliosis. IMPRESSION: 1. Cardiomegaly with pulmonary vascular congestion. 2. Right greater than left pleural effusions redemonstrated, slightly decreased in size on the right. 3. Bibasilar consolidative opacities suggestive of probable atelectasis. ACT 112: Negative or not required by law. The above report was generated using voice recognition software. It may contain grammatical, syntax o r spelling errors. Electronically signed by: José Miguel Genao M.D. 04/06/2020 10:25 AM
[2020-04-06] MEDS ORDERED: VANCOMYCIN TROUGH ONE (11:30)
[2020-04-06] MEDS ORDERED: FUROSEMIDE 40 MG in SYRINGE 0 ML IV ONE (13:00)
--- NOTE | 2020-04-06 18:28 | Billing Data ---
Date of Service April 06, 2020 Coding Level of Care Code 18552 Prolonged Care (int'l)
--- NOTE | 2020-04-06 18:28 | Billing Data ---
Date of Service April 06, 2020 Coding Level of Care Code 84709 Subseq Hosp Care Lvl 3
[2020-04-06] MEDS: ENOXAPARIN INJ 40 MG/0.4 ML SYR SQ SCH (21:18)
[2020-04-06] MEDS: traZODone HCL 50 MG TAB PO SCH (21:19)
[2020-04-06] MEDS: DAPTOmycin 550 MG in SYRINGE 0 ML IV SCH (23:41)
[2020-04-07] MEDS: cefTRIAXone SODIUM 2,000 MG in DEXTROSE 5% 50 ML IV SCH (00:57)
[2020-04-07 06:31] LABS: BUN Creatinine Ratio 16.7 (10-20); Calcium 7.7 mg/dl (8.5-10.1); Creatinine Clr Calc Pharmacy 120.4 ml/min; Est GFR (African American) 103.4; Est GFR (Non-African American) 89.2; Magnesium 1.8 mg/dl (1.8-2.4); Phosphorus 3.5 mg/dl (2.5-4.9); Potassium 3.4 mmol/L (3.5-5.1)
[2020-04-07 08:23] LABS: Basophils # (auto) 0.02 K/uL (0-0.2); Basophils % (auto) 0.3 %; Eosinophils # (auto) 0.06 K/uL (0-0.5); Eosinophils % (auto) 0.8 %; Hematocrit (blood only) 39.5 % (42-52); Hemoglobin 12.5 g/dL (14.0-18.0); Immature Granulocytes # (auto) 0.01 K/uL (0.00-0.02); Immature Granulocytes % (auto) 0.1 %; Lymphocytes % (auto) 17.6 %; Mean Corpuscular Hemoglobin 27.7 pg (25-34); Mean Corpuscular Hgb Conc 31.6 g/dL (32-36); Mean Corpuscular Volume 87.4 fL (80-100); Mean Platelet Volume 13.3 fL (7.4-10.4); Monocytes # (auto) 0.71 K/uL (0.11-0.59); Monocytes % (auto) 9.6 %; Neutrophils # (auto) 5.28 K/uL (1.4-6.5); Neutrophils % (auto) 71.6 %; Platelet Count 166 K/uL (130-400); RDW Coefficient of Variation 15.9 % (11.5-14.5); RDW Standard Deviation 51.1 fL (36.4-46.3); Red Blood Count 4.52 M/uL (4.7-6.1); White Blood Count 7.38 K/uL (4.8-10.8)
[2020-04-07] MEDS: POLYETHYLENE (MIRALAX) 17 GM PACK PO SCH ×2 (09:05→20:56)
[2020-04-07] MEDS: METOPROLOL SUCC 25MG EXT REL TAB PO SCH (09:06)
[2020-04-07] MEDS: ASPIRIN 81 MG ECTAB PO SCH (09:06)
[2020-04-07] MEDS: ATORVASTATIN 40 MG TAB PO SCH (09:06)
[2020-04-07] MEDS: SACUBITRIL-VALSARTAN 24-26 MG TAB PO SCH ×2 (09:06→20:55)
[2020-04-07] MEDS: INSULIN ASPART 100 UNITS/ML 3 ML PEN SC SCH ×4 (09:08→21:45)
[2020-04-07] MEDS: ACETAMINOPHEN 325 MG TAB PO PRN ×2 (10:24→20:56)
[2020-04-07] MEDS ORDERED: FUROSEMIDE 80 MG in SYRINGE 0 ML IV ONE (14:00)
--- NOTE | 2020-04-07 14:44 | Hospitalist Progress Note ---
Date of Service April 07, 2020 Assessment & Plan (1) Cellulitis: Inder Faith is a 49 yo M with no significant PMHx who was admitted to [facility] on 04/03/2020 for GPC Bacteremia 2/2 RLE cellulitis and new systolic CHF - Improving. Gram-Positive Bactermia 2/2 cellulitis - pain level improving and tolerating palpation w/o much pain 04/05/20. - wound culture positive for Group G Beta Strep (bui-sensitive) and MSSA, blood culture positive for Group G Beta Strep (bui-sensitive) as well - d/c dapto. continue Rocephin. total 14 days. Acute on Chronic HFrEF - ROMANO/orthopnea/LE edema for at least several weeks, TTE showed EF 25-30% with severe global hypokinesis of LV - new diagonsis of CHF - Positive fluid balance - received Lasix 80mg IV x1 04/07/20 - Lasix 40mg IV BID starting 04/08 - Entresto 24/26mg PO BID and Toprol XL 25mg PO daily - titrate as tolerated - Atorvastatin 40mg PO QAM and baby Aspirin started due to suspicion for ischemic cardiomyopathy - Cardiology consulted for further eval/management. Bilateral Pleural Effusions - CTA Chest showing moderate sized bilateral pleural effusions, repeat CXR on 04/06 showing slight interval decrease in right - suspect transudative secondary to CHF - consider diagnostic/therapeutic thoracentesis if SOB worsens - Continue diuresis as above Morbid Obesity - worsening ROMANO, TTE with elevated RVSP 40-50mmHg - high suspicion for underlying SOHA/OHS, which may also be exacerbating heart disease - CPAP QHS - sleep study as outpatient T2DM - new diagnosis, A1c 7.4 - SSI while hospitalized - consider Metformin on discharge Dyslipidemia - new diagnosis, HDL 29 and Chol:HDL ratio 5 - Atorvastatin as above HTN - BP up to 170/111 in ED - Started Entresto/Toprol as above FEN/GI: DM2, heart healthy, low sodium DVT ppx: Lovenox 40mg SQ Q24H Code Status: Full Code Dispo: Med/Surg (2) Bilateral pleural effusion: (3) Dyspnea on exertion: (4) Hyperglycemia: Admission and Anticipated Discharge Date Admission Date: April 03, 2020 Supervising Physician Co-Signing Physician Notes Resident Physician Supervision Note: I independently interviewed and examined the patient and verified the richardson history and physical, reviewed labs and image studies, discussed the case with the resident Dr. Lomeli and agree with the findings and care plan. Review of Systems Review of Systems: All systems reviewed & are unremarkable except as noted in Subjective Physical Exam Physical Exam: General: A&Ox3. NAD. Cooperative. Morbidly obese. HEENT: Atraumatic, normocephalic. Pulm: No increased work of breathing/respiratory distress, faint lung sounds bilaterally, no wheezes Cardiac: RRR, -mrg. Radial pulses intact and symmetrical. Abdominal: soft, non-tender, non-distended, BS x 4 Extremities: Bilateral leg swelling, redness, painful and warm to the touch. Right leg with dressings that are clean, dry, intact. Anterior LLE with a single small ulcer. Results & Data Results & Data ([facility]) Vital Signs (Past 12 Hours) Vital Signs Temp Pulse Resp BP Pulse Ox 04/07/20 07:24 37.7 C H 98 H 18 131/90 98 Resident Activity Tracking Resident Involvement: Resident Care Provided Care Provided: Adult [facility] Medicine (1) Cellulitis Laterality: right Site of cellulitis: extremity Site of cellulitis of extremity: lower extremity Qualified Code(s): L03.115 - Cellulitis of right lower limb
[2020-04-07] MEDS: ENOXAPARIN INJ 40 MG/0.4 ML SYR SQ SCH (20:55)
[2020-04-07] MEDS: traZODone HCL 50 MG TAB PO SCH (20:55)
[2020-04-07] MEDS: IBUPROFEN 200 MG TAB PO PRN (23:52)
[2020-04-08] MEDS: cefTRIAXone SODIUM 2,000 MG in DEXTROSE 5% 50 ML IV SCH (01:01)
[2020-04-08] MEDS: IBUPROFEN 200 MG TAB PO PRN ×2 (06:08→21:47)
[2020-04-08 08:00] LABS: Basophils # (auto) 0.02 K/uL (0-0.2); Basophils % (auto) 0.3 %; Eosinophils # (auto) 0.09 K/uL (0-0.5); Eosinophils % (auto) 1.2 %; Hematocrit (blood only) 39.9 % (42-52); Hemoglobin 13.1 g/dL (14.0-18.0); Immature Granulocytes # (auto) 0.01 K/uL (0.00-0.02); Immature Granulocytes % (auto) 0.1 %; Lymphocytes # (auto) 1.55 K/uL (1.2-3.4); Lymphocytes % (auto) 20.9 %; Mean Corpuscular Hemoglobin 28.1 pg (25-34); Mean Corpuscular Hgb Conc 32.8 g/dL (32-36); Mean Corpuscular Volume 85.6 fL (80-100); Mean Platelet Volume 12.4 fL (7.4-10.4); Monocytes # (auto) 0.73 K/uL (0.11-0.59); Monocytes % (auto) 9.9 %; Neutrophils % (auto) 67.6 %; Platelet Count 189 K/uL (130-400); RDW Coefficient of Variation 15.9 % (11.5-14.5); RDW Standard Deviation 49.8 fL (36.4-46.3); Red Blood Count 4.66 M/uL (4.7-6.1)
[2020-04-08 08:24] LABS: BUN Creatinine Ratio 15.1 (10-20); Calcium 8.5 mg/dl (8.5-10.1); Creatinine Clr Calc Pharmacy 119.2 ml/min; Est GFR (African American) 102.2; Est GFR (Non-African American) 88.2; Potassium 3.4 mmol/L (3.5-5.1)
--- NOTE | 2020-04-08 09:20 | Hospitalist Progress Note ---
Date of Service April 08, 2020 Assessment & Plan (1) Cellulitis: Inder Faith is a 49 yo M with no significant PMHx who was admitted to [facility] on 04/03/2020, now presenting with bacteremia and bilateral lower extremity cellulitis + new onset CHF Gram-Positive Bactermia 2/2 cellulitis - pain level improving, although feet are still painful especially with walking. - right leg wound culture positive for Group G Beta Strep (bui-sensitive) and MSSA, blood culture positive for Group G Beta Strep (bui-sensitive) as well - Daptomycin discontinued. continue Rocephin for a total of 14 days. - Blood cultures ordered Acute on Chronic HFrEF - ROMANO/orthopnea/LE edema for at least several weeks, TTE showed EF 25-30% with severe global hypokinesis of LV - new diagonsis of CHF - Positive fluid balance - received Lasix 80mg IV x1 04/07/20 - Lasix 40mg IV BID starting 04/08 - Entresto 24/26mg PO BID and Toprol XL 25mg PO daily - titrate as tolerated - Atorvastatin 40mg PO QAM and baby Aspirin started due to suspicion for ischemic cardiomyopathy Bilateral Pleural Effusions - CTA Chest showing moderate sized bilateral pleural effusions. suggests LV dysfunction has been present for some time. repeat CXR on 04/06 showing slight interval decrease in right - suspect transudative secondary to CHF - consider diagnostic/therapeutic thoracentesis if SOB worsens - Continue diuresis as above Morbid Obesity - worsening ROMANO, TTE with elevated RVSP 40-50mmHg - high suspicion for underlying SOHA/OHS, which may also be exacerbating heart disease - CPAP QHS - sleep study as outpatient T2DM - new diagnosis, A1c 7.4 - SSI while hospitalized - consider Metformin on discharge Dyslipidemia - new diagnosis, HDL 29 and Chol:HDL ratio 5 - Atorvastatin as above HTN - BP up to 170/111 in ED - Started Entresto/Toprol as above - Down to 127/85 today FEN/GI: DM2, heart healthy, low sodium DVT ppx: Lovenox 40mg SQ Q24H Code Status: Full Code Dispo: Med/Surg (2) Bilateral pleural effusion: (3) Dyspnea on exertion: (4) Hyperglycemia: Admission and Anticipated Discharge Date Admission Date: April 03, 2020 Supervising Physician Co-Signing Physician Notes Medical Student Supervision Note: I was personally present during medical student patient encounter and independently interviewed and examined the patient and verified the richardson history and physical, reviewed labs and image studies, discussed the case with Estefani Logan and agree with the findings and care plan. Denied shortness of breath or chest pain. leg swelling still present. would care nurse concerned about underlying hematoma under the ulcer o/e - Heart - RRR, lung - crackles at base. Right leg - posteriorly with large vertically oval ulcer continue with IV abx for bacteremia, wound care check right leg ultrasound. IV diuretics - in negative fluid balance. follow renal function. Andreina Loving is a 49 y/o male who was admitted on 04/03 for bacteremia secondary to RLE cellulitis as well as recent hx of dyspnea on exertion. Today, I walked in the find the patient sitting up and eating his breakfast. No acute events overnight. He reports sleeping well last night. He also notes that he still has pain in his feet especially with walking. However, his SOB is much improved. He does't think the swelling in his legs or feet has improved, even though he feels that yes terday's dose of lasix was helpful. The wound on his left leg started oozing yesterday, it is currently covered up. Physical Exam Physical Exam: General: No acute distress. Cooperative. A&Ox3. HEENT: Normocephalic, atraumatic Pulm: No increased work of breathing/respiratory distress. Lungs CTA bilat Cardiac: RRR, no m/r/g. No JVD Abdominal: soft, non-tender, non-distended, BS x 4 Extremities: Bilateral leg swelling, red, tender and warm to the touch. Right leg with dressings that are clean, dry, intact. Anterior LLE with new oozing wound, currently covered. Left foot with a single small ulcer anteriorly. Results & Data Results & Data ([facility]) Vital Signs (Past 12 Hours) Vital Signs Temp Pulse Resp BP Pulse Ox 04/08/20 08:06 36.7 C 100 H 16 127/85 95 (1) Cellulitis Laterality: right Site of cellulitis: extremity Site of cellulitis of extremity: lower extremity Qualified Code(s): L03.115 - Cellulitis of right lower limb
[2020-04-08] MEDS: FUROSEMIDE 40 MG TAB PO SCH ×2 (09:41→17:35)
[2020-04-08] MEDS: ATORVASTATIN 40 MG TAB PO SCH (09:41)
[2020-04-08] MEDS: ASPIRIN 81 MG ECTAB PO SCH (09:42)
[2020-04-08] MEDS: METOPROLOL SUCC 25MG EXT REL TAB PO SCH (09:42)
[2020-04-08] MEDS: POLYETHYLENE (MIRALAX) 17 GM PACK PO SCH ×2 (09:42→21:39)
[2020-04-08] MEDS: SACUBITRIL-VALSARTAN 24-26 MG TAB PO SCH ×2 (09:42→21:40)
[2020-04-08] MEDS: INSULIN ASPART 100 UNITS/ML 3 ML PEN SC SCH ×4 (09:45→22:27)
[2020-04-08] MEDS: ACETAMINOPHEN 325 MG TAB PO PRN ×2 (09:49→15:34)
--- NOTE | 2020-04-08 14:59 | Ultrasound Report ---
ULTRASOUND RIGHT LOWER EXTREMITY VENOUS CLINICAL HISTORY: Lower extremity wounds. COMPARISON STUDY: Right lower extremity venous ultrasound dated 04/03/2020. TECHNIQUE: Real-time, grayscale, and color Doppler sonography of the deep veins of the right lower ex tremity was performed from the inguinal crease to the calf. Compression and augmentation were utilize d. FINDINGS: There is no sonographic evidence of deep venous thrombosis identified in the right lower ex tremity. The common femoral, superficial femoral, and popliteal veins are patent and normally jerry sible. The greater saphenous vein and the profunda femoris vein at the junction with the common femor al vein are clear. The visualized calf veins are patent. Prominent right inguinal lymph nodes are lik garland reactive. IMPRESSION: There is no sonographic evidence of deep venous thrombosis identified in the right lower extremity. ACT 112: Negative or not required by law. Electronically signed by: Daniel Duran M.D. 04/08/2020 2:57 PM
--- NOTE | 2020-04-08 16:33 | Cardiology Progress Note ---
Date of Service April 08, 2020 Assessment & Plan (1) Acute on chronic systolic (congestive) heart failure: -hypervolemia has likely been present since January. -moderate to severe global hypokinesis with an ejection fraction of 25- 30%. -large pleural effusions, interstitial edema, and pitting edema. -tolerating Entresto and metoprolol succinate. -started on Lasix 40 mg p.o. b.i.d. today. -will discuss cardiac catheterization once we are sure bacteremia has resolved. (2) Bilateral pleural effusion: -moderate pleural effusion suggests LV dysfunction has been present for some time. (3) Abnormal ECG: -left axis deviation, interventricular conduction delay, and poor R-wave progression across the anterior precordium. Admission and Anticipated Discharge Date Admission Date: April 03, 2020 Subjective The patient is resting comfortably in bed without complaints of chest pain or dyspnea. Physical Exam Physical Exam: In general this is an obese white male sees at the bedside without complaints. HEENT exam is negative. Neck is supple with full carotid upstrokes. No carotid bruits. Jugular venous pressure is difficult to assess. Cardiovascular exam reveals a regular rhythm with distant heart sounds. No obvious murmurs. No S3. Lungs note decreased breath sounds at bases but no rales, rhonchi, or wheezes. Abdomen is obese without bruits. Extremities note intact radial artery pulses bilaterally. There is 3+ pedal, 2+ pretibial, and 1+ thigh edema bilaterally. Results & Data ([facility]) Vital Signs (Past 12 Hours) Vital Signs Temp Pulse Resp BP Pulse Ox 04/08/20 15:46 37 C 103 H 16 134/88 97 04/08/20 08:06 36.7 C 100 H 16 127/85 95 PG Care Time/CCT Total # of Minutes Spent Total Time Spent with Patient: Total time spent is greater than 50% in coordination of care (as documented) at patient's floor/unit and/or counseling patient: Coding Level of Care Code 83969 Subseq Hosp Care Lvl 3 Diagnoses Acute on chronic systolic (congestive) heart failure I50.23 Bilateral pleural effusion J90 Abnormal ECG R94.31
[2020-04-08] MEDS: traZODone HCL 50 MG TAB PO SCH (21:41)
[2020-04-08] MEDS: ENOXAPARIN INJ 40 MG/0.4 ML SYR SQ SCH (21:42)
[2020-04-09] MEDS: cefTRIAXone SODIUM 2,000 MG in DEXTROSE 5% 50 ML IV SCH (01:41)
[2020-04-09 08:06] LABS: Basophils # (auto) 0.02 K/uL (0-0.2); Basophils % (auto) 0.3 %; Eosinophils # (auto) 0.12 K/uL (0-0.5); Eosinophils % (auto) 1.6 %; Hematocrit (blood only) 40.3 % (42-52); Hemoglobin 12.9 g/dL (14.0-18.0); Lymphocytes # (auto) 1.94 K/uL (1.2-3.4); Lymphocytes % (auto) 25.6 %; Mean Corpuscular Hemoglobin 27.4 pg (25-34); Mean Corpuscular Volume 85.7 fL (80-100); Mean Platelet Volume 12.2 fL (7.4-10.4); Monocytes # (auto) 0.58 K/uL (0.11-0.59); Monocytes % (auto) 7.7 %; Neutrophils # (auto) 4.92 K/uL (1.4-6.5); Neutrophils % (auto) 64.8 %; Platelet Count 190 K/uL (130-400); RDW Coefficient of Variation 15.7 % (11.5-14.5); RDW Standard Deviation 49.7 fL (36.4-46.3); White Blood Count 7.58 K/uL (4.8-10.8)
[2020-04-09 08:42] LABS: BUN Creatinine Ratio 17.1 (10-20); Calcium 8.4 mg/dl (8.5-10.1); Creatinine Clr Calc Pharmacy 124.1 ml/min; Est GFR (African American) 108.7; Est GFR (Non-African American) 93.8; Potassium 3.6 mmol/L (3.5-5.1)
[2020-04-09] MEDS: INSULIN ASPART 100 UNITS/ML 3 ML PEN SC SCH ×4 (08:55→21:13)
[2020-04-09] MEDS: METOPROLOL SUCC 25MG EXT REL TAB PO SCH (08:56)
[2020-04-09] MEDS: FUROSEMIDE 40 MG TAB PO SCH ×2 (08:56→17:19)
[2020-04-09] MEDS: ATORVASTATIN 40 MG TAB PO SCH (08:56)
[2020-04-09] MEDS: ASPIRIN 81 MG ECTAB PO SCH (08:56)
[2020-04-09] MEDS: POLYETHYLENE (MIRALAX) 17 GM PACK PO SCH ×2 (08:57→20:46)
[2020-04-09] MEDS: SACUBITRIL-VALSARTAN 24-26 MG TAB PO SCH ×2 (08:57→20:45)
[2020-04-09] MEDS ORDERED: FUROSEMIDE 40 MG in SYRINGE 0 ML IV ONE (10:30)
--- NOTE | 2020-04-09 11:39 | Hospitalist Progress Note ---
Date of Service April 09, 2020 Assessment & Plan (1) Cellulitis: Inder Faith is a 49 yo M with no significant PMHx who was admitted to [facility] on 04/03/2020, now presenting with bacteremia and bilateral lower extremity cellulitis + new onset CHF Gram-Positive Bactermia 2/2 cellulitis - pain level improving, although feet are still painful especially with walking. - right leg wound culture positive for Group G Beta Strep (bui-sensitive) and MSSA, blood culture positive for Group G Beta Strep (bui-sensitive) as well - Daptomycin discontinued. continue Rocephin for a total of 14 days. - Blood cultures ordered. Results pending - Ultrasound ordered due to woundcare concern for hematoma underlying the right leg ulcer. No positive findings Acute on Chronic HFrEF - ROMANO/orthopnea/LE edema for at least several weeks, TTE showed EF 25-30% with severe global hypokinesis of LV - new diagnosis of CHF - Positive fluid balance - receiving Lasix 40mg IV BID. (Received one extra dose of 40mg Lasix this AM) - Entresto 24/26mg PO BID and Toprol XL 25mg PO daily - titrate as tolerated - Atorvastatin 40mg PO QAM and baby Aspirin started due to suspicion for ischemic cardiomyopathy Bilateral Pleural Effusions - CTA Chest showing moderate sized bilateral pleural effusions. suggests LV dysfunction has been present for some time. repeat CXR on 04/06 showing slight interval decrease in right - suspect transudative secondary to CHF. No need for another CXR. Monitor clinically - consider diagnostic/therapeutic thoracentesis if SOB worsens - Continue diuresis as above Morbid Obesity - worsening ROMANO (improvement noted since inpatient), TTE with elevated RVSP 40- 50mmHg - high suspicion for underlying SOHA/OHS, which may also be exacerbating heart disease - CPAP QHS - sleep study as outpatient - Will discuss lifestyle changes T2DM - new diagnosis, A1c 7.4 - SSI while hospitalized - consider Metformin on discharge Dyslipidemia - new diagnosis, HDL 29 and Chol:HDL ratio 5 - Atorvastatin as above HTN - BP up to 170/111 in ED - Started Entresto/Toprol as above - Up to 160/86 this AM from 127/85 yesterday. continue to monitor FEN/GI: DM2, heart healthy, low sodium DVT ppx: Lovenox 40mg SQ Q24H Code Status: Full Code Dispo: Med/Surg (2) Bilateral pleural effusion: -moderate pleural effusion suggests LV dysfunction has been present for some time. (3) Dyspnea on exertion: (4) Hyperglycemia: Admission and Anticipated Discharge Date Admission Date: April 03, 2020 Supervising Physician Co-Signing Physician Notes Medical Student Supervision Note: I was personally present during medical student patient encounter and independently interviewed and examined the patient and verified the richardson history and physical, reviewed labs and image studies, discussed the case with Estefani Logan and agree with the findings and care plan. Urinating a lot after receiving lasix. leg pain due to swelling. o/e - Heart - RRR, lung - clear. Bilateral leg edema. Right leg - posteriorly with large vertically oval ulcer Repeat blood culture pending. continue with IV ceftrixone for total abx duration of 14 days. Continue IV diuretics - in negative fluid balance for last 24 hrs but hospital stay balance positive - ? unsure of measurements accurate. renal function stable. continue entresto, b lamar, aspirin further cardiac evaluation as outpatient. Andreina Loving is a 49 y/o male who was admitted on 04/03 for bacteremia secondary to RLE cellulitis as well as recent hx of dyspnea on exertion. Today, I walked in the find the patient sitting up and eating his breakfast. No acute events overnight. He reports sleeping well last night. He also notes that he still has pain in his feet especially with walking. He rates the pain 8/10 which is an improvement from yesterday's 10/10. His SOB is much improved. He thinks the swelling in his legs and feet is mildly improved. He continues to find the lasix helpful. Physical Exam Physical Exam: General: No acute distress. Cooperative and talkative. A&Ox3. HEENT: Normocephalic, atraumatic Pulm: No increased work of breathing/respiratory distress. Lungs CTA bilat Cardiac: RRR, no m/r/g. No JVD Abdominal: soft, non-tender, non-distended, BS x 4 Extremities: Bilateral leg swelling, red, tender and warm to the touch. Right leg with dressings that are clean, dry, intact. Left foot with a single small ulcer anteriorly. Results & Data Results & Data ([facility]) Vital Signs (Past 12 Hours) Vital Signs Temp Pulse Resp BP BP Pulse Ox 02/10/21 07:09 36.8 C 91 H 22 160/86 H 97 04/09/20 02:30 36.6 C 98 H 18 130/87 98 (1) Cellulitis Laterality: right Site of cellulitis: extremity Site of cellulitis of extremity: lower extremity Qualified Code(s): L03.115 - Cellulitis of right lower limb
[2020-04-09] MEDS: ACETAMINOPHEN 325 MG TAB PO PRN ×2 (14:44→20:43)
[2020-04-09] MEDS: IBUPROFEN 200 MG TAB PO PRN ×2 (15:43→22:40)
[2020-04-09] MEDS: ENOXAPARIN INJ 40 MG/0.4 ML SYR SQ SCH (20:45)
[2020-04-09] MEDS: traZODone HCL 50 MG TAB PO SCH (20:46)
[2020-04-10] MEDS: cefTRIAXone SODIUM 2,000 MG in DEXTROSE 5% 50 ML IV SCH (02:01)
[2020-04-10] MEDS: ACETAMINOPHEN 325 MG TAB PO PRN ×4 (03:32→20:43)
[2020-04-10] MEDS: IBUPROFEN 200 MG TAB PO PRN ×3 (05:17→18:12)
[2020-04-10 06:27] LABS: Basophils # (auto) 0.03 K/uL (0-0.2); Basophils % (auto) 0.3 %; Eosinophils # (auto) 0.11 K/uL (0-0.5); Eosinophils % (auto) 1.2 %; Hematocrit (blood only) 40.9 % (42-52); Hemoglobin 13.2 g/dL (14.0-18.0); Immature Granulocytes # (auto) 0.01 K/uL (0.00-0.02); Immature Granulocytes % (auto) 0.1 %; Lymphocytes # (auto) 2.14 K/uL (1.2-3.4); Lymphocytes % (auto) 24.2 %; Mean Corpuscular Hgb Conc 32.3 g/dL (32-36); Mean Corpuscular Volume 86.8 fL (80-100); Mean Platelet Volume 12.2 fL (7.4-10.4); Monocytes # (auto) 0.63 K/uL (0.11-0.59); Monocytes % (auto) 7.1 %; Neutrophils # (auto) 5.94 K/uL (1.4-6.5); Neutrophils % (auto) 67.1 %; Platelet Count 218 K/uL (130-400); RDW Coefficient of Variation 15.9 % (11.5-14.5); RDW Standard Deviation 50.9 fL (36.4-46.3); Red Blood Count 4.71 M/uL (4.7-6.1); White Blood Count 8.86 K/uL (4.8-10.8)
[2020-04-10 06:52] LABS: BUN Creatinine Ratio 19.5 (10-20); Calcium 8.8 mg/dl (8.5-10.1); Creatinine Clr Calc Pharmacy 119.1 ml/min; Est GFR (African American) 103.4; Est GFR (Non-African American) 89.2
[2020-04-10] MEDS: POLYETHYLENE (MIRALAX) 17 GM PACK PO SCH ×2 (08:23→21:39)
[2020-04-10] MEDS: ATORVASTATIN 40 MG TAB PO SCH (08:23)
[2020-04-10] MEDS: ASPIRIN 81 MG ECTAB PO SCH (08:23)
[2020-04-10] MEDS: SACUBITRIL-VALSARTAN 24-26 MG TAB PO SCH ×2 (08:23→20:46)
[2020-04-10] MEDS: FUROSEMIDE 40 MG TAB PO SCH (08:23)
[2020-04-10] MEDS: METOPROLOL SUCC 25MG EXT REL TAB PO SCH (08:23)
[2020-04-10] MEDS: INSULIN ASPART 100 UNITS/ML 3 ML PEN SC SCH ×4 (08:24→21:40)
--- NOTE | 2020-04-10 09:57 | Hospitalist Progress Note ---
Date of Service April 10, 2020 Assessment & Plan Admission and Anticipated Discharge Date Admission Date: April 03, 2020 Results & Data Results & Data ([facility]) Vital Signs (Past 12 Hours) Vital Signs Temp Pulse Resp BP BP Pulse Ox 04/10/20 07:18 36.7 C 88 20 113/79 97 04/09/20 22:46 37.1 C 92 H 18 115/75 96
[2020-04-10] MEDS ORDERED: FUROSEMIDE 40 MG in SYRINGE 0 ML IV ONE ×2 (11:15→21:00)
--- NOTE | 2020-04-10 13:11 | Hospitalist Progress Note ---
Date of Service April 10, 2020 Assessment & Plan (1) Cellulitis: Inder Faith is a 49 yo M with no significant PMHx who was admitted to [facility] on 04/03/2020, now presenting with bacteremia and bilateral lower extremity cellulitis + new onset CHF Gram-Positive Bactermia 2/2 cellulitis - pain level improving, although feet are still painful especially with walking. - right leg wound culture positive for Group G Beta Strep (bui-sensitive) and MSSA, blood culture positive for Group G Beta Strep (bui-sensitive) as well - Still receiving ceftriaxone for a total of 14 days. - Repeat blood cultures negative Acute on Chronic HFrEF - ROMANO/orthopnea/LE edema for at least several weeks, TTE showed EF 25-30% with severe global hypokinesis of LV - new diagnosis of CHF - Negative fluid balance (-1070ml this AM) - BUN 19, Creatinine 1.0. Administer one more dose of lasix IV and reassess kidney function - Entresto 24/26mg PO BID and Toprol XL 25mg PO daily - titrate as tolerated - Atorvastatin 40mg PO QAM and baby Aspirin started due to suspicion for ischemic cardiomyopathy Bilateral Pleural Effusions - CTA Chest showing moderate sized bilateral pleural effusions. suggests LV dysfunction has been present for some time. repeat CXR on 04/06 showing slight interval decrease in right - suspect transudative secondary to CHF. No need for another CXR. Monitor clinically - consider diagnostic/therapeutic thoracentesis if SOB worsens - Continue diuresis as above Morbid Obesity - worsening ROMANO (improvement noted since inpatient), TTE with elevated RVSP 40- 50mmHg - high suspicion for underlying SOHA/OHS, which may also be exacerbating heart disease - CPAP QHS - sleep study as outpatient - Will discuss lifestyle changes T2DM - new diagnosis, A1c 7.4 - SSI while hospitalized - consider Metformin on discharge Dyslipidemia - new diagnosis, HDL 29 and Chol:HDL ratio 5 - Atorvastatin as above HTN - BP up to 170/111 in ED. - Started Entresto/Toprol as above - BP 113/79 this AM from 160 systolic yesterday. continue to monitor FEN/GI: DM2, heart healthy, low sodium DVT ppx: Lovenox 40mg SQ Q24H Code Status: Full Code Dispo: Med/Surg (2) Bilateral pleural effusion: (3) Dyspnea on exertion: (4) Hyperglycemia: Admission and Anticipated Discharge Date Admission Date: April 03, 2020 Supervising Physician Co-Signing Physician Notes Medical Student Supervision Note: I was personally present during medical student patient encounter and independently interviewed and examined the patient and verified the richardson history and physical, reviewed labs and image studies, discussed the case with Estefani Logan and agree with the findings and care plan. Continue IV rocephin Was receiving scheduled oral lasix - will switch to scheduled IV lasix for more aggressive diuresis. monitor electrolytes and renal function. should help with leg edema and leg wound healing. anticipate d/c in next 24-48hrs. Subjective Inder Faith was resting comfortably in bed when I saw him this morning. He reports sleeping well last night, with no acute events overnight. He appreciates a decrease in his leg swelling, as well as in his pain with walking. He is tolerating the lasix and antibiotics well. Review of Systems Constitutional: no fever and no chills Ear, Nose, Mouth, Throat: no teeth Respiratory: dyspnea on exertion decreased Cardiovascular: no chest pain Additional Comments: calf pain at wound site Gastrointestinal: no nausea, no vomiting and no change in bowel habits Musculoskeletal: LE swelling Neurologic: no generalized weakness and no headache(s) Psychiatric: no behavioral changes Physical Exam Physical Exam: General: No acute distress. Cooperative and talkative. A&Ox3. HEENT: Normocephalic, atraumatic Pulm: No increased work of breathing/respiratory distress. Lungs CTA bilat Cardiac: RRR, no m/r/g. No JVD Abdominal: soft, non-tender, non-distended, BS x 4. visible hematoma Extremities: Bilateral leg swelling decreased from previous days, red, tender and warm to the touch. Right leg with dressings that are clean and dry. Left foot with a single small ulcer anteriorly. Area is tender to palpation. Results & Data Results & Data ([facility]) Vital Signs (Past 12 Hours) Vital Signs Temp Pulse Resp BP Pulse Ox 04/10/20 07:18 36.7 C 88 20 113/79 97 (1) Cellulitis Laterality: right Site of cellulitis: extremity Site of cellulitis of extremity: lower extremity Qualified Code(s): L03.115 - Cellulitis of right lower limb
[2020-04-10] MEDS: traZODone HCL 50 MG TAB PO SCH (20:46)
[2020-04-10] MEDS: ENOXAPARIN INJ 40 MG/0.4 ML SYR SQ SCH (21:39)
[2020-04-11] MEDS: IBUPROFEN 200 MG TAB PO PRN ×3 (00:53→21:11)
[2020-04-11] MEDS: cefTRIAXone SODIUM 2,000 MG in DEXTROSE 5% 50 ML IV SCH (00:54)
[2020-04-11] MEDS: ACETAMINOPHEN 325 MG TAB PO PRN ×2 (05:04→15:12)
[2020-04-11 07:21] LABS: Basophils # (auto) 0.01 K/uL (0-0.2); Basophils % (auto) 0.1 %; Eosinophils # (auto) 0.15 K/uL (0-0.5); Hematocrit (blood only) 36.2 % (42-52); Hemoglobin 11.7 g/dL (14.0-18.0); Immature Granulocytes # (auto) 0.01 K/uL (0.00-0.02); Immature Granulocytes % (auto) 0.1 %; Lymphocytes % (auto) 20.9 %; Mean Corpuscular Hemoglobin 27.9 pg (25-34); Mean Corpuscular Hgb Conc 32.3 g/dL (32-36); Mean Corpuscular Volume 86.2 fL (80-100); Mean Platelet Volume 11.7 fL (7.4-10.4); Monocytes # (auto) 0.55 K/uL (0.11-0.59); Monocytes % (auto) 7.2 %; Neutrophils # (auto) 5.35 K/uL (1.4-6.5); Neutrophils % (auto) 69.7 %; Platelet Count 179 K/uL (130-400); RDW Coefficient of Variation 15.9 % (11.5-14.5); RDW Standard Deviation 50.4 fL (36.4-46.3); White Blood Count 7.67 K/uL (4.8-10.8)
[2020-04-11 07:38] LABS: BUN Creatinine Ratio 19.4 (10-20); Calcium 8.6 mg/dl (8.5-10.1); Creatinine Clr Calc Pharmacy 122.9 ml/min; Est GFR (African American) 108.7; Est GFR (Non-African American) 93.8; Potassium 3.6 mmol/L (3.5-5.1)
[2020-04-11] MEDS: SACUBITRIL-VALSARTAN 24-26 MG TAB PO SCH ×2 (08:18→21:12)
[2020-04-11] MEDS: POLYETHYLENE (MIRALAX) 17 GM PACK PO SCH ×2 (08:18→21:21)
[2020-04-11] MEDS: ATORVASTATIN 40 MG TAB PO SCH (08:18)
[2020-04-11] MEDS: METOPROLOL SUCC 25MG EXT REL TAB PO SCH (08:18)
[2020-04-11] MEDS: ASPIRIN 81 MG ECTAB PO SCH (08:18)
[2020-04-11] MEDS: INSULIN ASPART 100 UNITS/ML 3 ML PEN SC SCH ×4 (08:56→21:24)
[2020-04-11] MEDS ORDERED: FUROSEMIDE 40 MG in SYRINGE 0 ML IV ONE (11:15)
[2020-04-11] MEDS: FUROSEMIDE 40 MG in SYRINGE 0 ML IV SCH ×2 (11:15→21:11)
--- NOTE | 2020-04-11 13:19 | Hospitalist Progress Note ---
Date of Service April 11, 2020 Assessment & Plan (1) Cellulitis: Inder Faith is a 49 yo M with no significant PMHx who was admitted to [facility] on 04/03/2020, now presenting with bacteremia and bilateral lower extremity cellulitis + new onset CHF Group G Beta Strep Bacteremia 2/2 cellulitis - pain level improving, although feet are still painful especially with walking. - right leg wound culture positive for Group G Beta Strep (bui-sensitive) and MSSA, blood culture positive for Group G Beta Strep (bui-sensitive) as well - Daptomycin discontinued. continue Rocephin (day 11/11) - Repeat blood cx negative at 48 hours Acute on Chronic HFrEF - ROMANO/orthopnea/LE edema for at least several weeks, TTE showed EF 25-30% with severe global hypokinesis of LV - new diagnosis of CHF - Positive fluid balance today - Continue Lasix 40mg IV BID--received additional 40mg IV this AM - Entresto 24/26mg PO BID and Toprol XL 25mg PO daily - titrate as tolerated - Atorvastatin 40mg PO QAM and baby Aspirin started due to suspicion for ischemic cardiomyopathy Bilateral Pleural Effusions - CTA Chest showed moderate sized bilateral pleural effusions. suggests LV dysfunction has been present for some time. - repeat CXR on 04/06 showing slight interval decrease in right - suspect transudative secondary to CHF - consider diagnostic/therapeutic thoracentesis if SOB worsens - Continue diuresis as above Morbid Obesity - worsening ROMANO, TTE with elevated RVSP 40-50mmHg - high suspicion for underlying SOHA/OHS, which may also be exacerbating heart disease - CPAP QHS - sleep study as outpatient T2DM - new diagnosis, A1c 7.4 - SSI while hospitalized - consider Metformin on discharge Dyslipidemia - new diagnosis, HDL 29 and Chol:HDL ratio 5 - Atorvastatin as above HTN - BP up to 170/111 in ED - Started Entresto/Toprol as above - Has remained largely normotensive since then with few outliers up to 140s/90s FEN/GI: DM2, heart healthy, low sodium DVT ppx: Lovenox 40mg SQ Q24H Code Status: Full Code Dispo: Med/Surg (2) Bilateral pleural effusion: (3) Dyspnea on exertion: (4) Hyperglycemia: Admission and Anticipated Discharge Date Admission Date: April 03, 2020 Supervising Physician Co-Signing Physician Notes Medical Student Supervision Note: I was personally present during medical student patient encounter and independently interviewed and examined the patient and verified the richardson history and physical, reviewed labs and image studies, discussed the case with Estefani Logan and agree with the findings and care plan. Though fluid balance positive - has dropped >20lbs since discharge. continue IV diuretics. discussed extensively about patient's ability of dietary compliance and ability to care for himself at home. To further discuss with continuous pillowcase cutter about di shaquillerge planning Subjective No acute events overnight. Patient seen at bedside today, doing well overall. Reports that his feet feel better, especially when he gets Lasix. Has been urinating more. Sleeping well, stooling well. No further concerns expressed today. Review of Systems Review of Systems: All systems reviewed & are unremarkable except as noted in Subjective Physical Exam Physical Exam: General: No acute distress. Cooperative. A&Ox3. HEENT: Normocephalic, atraumatic Resp: No increased work of breathing, norespiratory distress. CTAB Cardiac: RRR, no m/r/g. No JVD GI: Abd soft, NT/ND, BS x 4 Extremities: Bilateral leg swelling, red, tender and warm to the touch. Right leg with dressings that are clean, dry, intact. Left foot with a single small ulcer anteriorly. Results & Data Results & Data ([facility]) Vital Signs (Past 12 Hours) Vital Signs Temp Pulse Resp BP Pulse Ox 04/11/20 07:23 36.9 C 78 20 108/63 97 Resident Activity Tracking Resident Involvement: Resident Care Provided Care Provided: Adult [facility] (1) Cellulitis Laterality: right Site of cellulitis: extremity Site of cellulitis of extremity: lower extremity Qualified Code(s): L03.115 - Cellulitis of right lower limb
--- NOTE | 2020-04-11 14:54 | Cardiology Progress Note ---
Date of Service April 11, 2020 Assessment & Plan (1) Acute on chronic systolic (congestive) heart failure: -hypervolemia likely present since January. -moderate to severe global hypokinesis with an ejection fraction of 25- 30%. -tolerating Entresto and metoprolol succinate. -continue Lasix 40 mg IV b.i.d. -will discuss cardiac catheterization once bacteremia has resolved. (2) Bilateral pleural effusion: -moderate pleural effusion suggests LV dysfunction is not acute. (3) Abnormal ECG: -left axis deviation, interventricular conduction delay, and poor R-wave progression across the anterior precordium. Admission and Anticipated Discharge Date Admission Date: April 03, 2020 Subjective The patient is resting comfortably in bed without complaints of chest pain or dyspnea. Physical Exam Physical Exam: In general this is an obese white male sees at the bedside without complaints. HEENT exam is negative. Neck is supple with full carotid upstrokes. No carotid bruits. Jugular venous pressure is difficult to assess. Cardiovascular exam reveals a regular rhythm with distant heart sounds. No obvious murmurs. No S3. Lungs note decreased breath sounds at bases but no rales, rhonchi, or wheezes. Abdomen is obese without bruits. Extremities note intact radial artery pulses bilaterally. There is 1+ pretibial edema bilaterally. Results & Data ([facility]) Vital Signs (Past 12 Hours) Vital Signs Temp Pulse Resp BP Pulse Ox 04/11/20 07:23 36.9 C 78 20 108/63 97 PG Care Time/CCT Total # of Minutes Spent Total Time Spent with Patient: Total time spent is greater than 50% in coordination of care (as documented) at patient's floor/unit and/or counseling patient: Coding Level of Care Code 44388 Subseq Hosp Care Lvl 3 Diagnoses Acute on chronic systolic (congestive) heart failure I50.23 Bilateral pleural effusion J90 Abnormal ECG R94.31
[2020-04-11] MEDS ORDERED: SODIUM CHLORIDE 0.65% NA SOLN 45 ML (OCEAN) PRN (15:11)
[2020-04-11] MEDS: traZODone HCL 50 MG TAB PO SCH (21:11)
[2020-04-11] MEDS: ENOXAPARIN INJ 40 MG/0.4 ML SYR SQ SCH (21:21)
[2020-04-12] MEDS: ACETAMINOPHEN 325 MG TAB PO PRN ×3 (01:14→23:00)
[2020-04-12] MEDS: cefTRIAXone SODIUM 2,000 MG in DEXTROSE 5% 50 ML IV SCH (01:17)
[2020-04-12 07:15] LABS: Basophils # (auto) 0.02 K/uL (0-0.2); Basophils % (auto) 0.3 %; Eosinophils # (auto) 0.15 K/uL (0-0.5); Hemoglobin 12.2 g/dL (14.0-18.0); Immature Granulocytes # (auto) 0.01 K/uL (0.00-0.02); Immature Granulocytes % (auto) 0.1 %; Lymphocytes # (auto) 1.61 K/uL (1.2-3.4); Lymphocytes % (auto) 21.5 %; Mean Corpuscular Hemoglobin 27.8 pg (25-34); Mean Corpuscular Hgb Conc 32.1 g/dL (32-36); Mean Corpuscular Volume 86.6 fL (80-100); Monocytes # (auto) 0.55 K/uL (0.11-0.59); Monocytes % (auto) 7.4 %; Neutrophils # (auto) 5.14 K/uL (1.4-6.5); Neutrophils % (auto) 68.7 %; Platelet Count 205 K/uL (130-400); RDW Coefficient of Variation 15.7 % (11.5-14.5); RDW Standard Deviation 50.6 fL (36.4-46.3); Red Blood Count 4.39 M/uL (4.7-6.1); White Blood Count 7.48 K/uL (4.8-10.8)
--- NOTE | 2020-04-12 07:26 | Hospitalist Progress Note ---
Date of Service April 12, 2020 Assessment & Plan (1) Cellulitis: Inder Faith is a 49 yo M with no significant PMHx who was admitted to [facility] on 04/03/2020, now presenting with bacteremia and bilateral lower extremity cellulitis + new onset CHF Group G Beta Strep Bacteremia 2/2 cellulitis - pain level improving, although feet are still painful especially with walking. - right leg wound culture positive for Group G Beta Strep (bui-sensitive) and MSSA, initial BCX are positive (/) for Group G Beta Strep (ubi-sensitive) as well - Continue ceftriaxone to meet 14 days' worth of ABX (end 04/16) - Repeat blood cx negative at 48 hours Acute on Chronic HFrEF - ROMANO/orthopnea/LE edema for at least several weeks, TTE showed EF 25-30% with severe global hypokinesis of LV - new diagnosis of CHF - Continue Lasix 40mg IV BID - add additional doses PRN - Entresto 24/26mg PO BID and Toprol XL 25mg PO daily - titrate as tolerated - Atorvastatin 40mg PO QAM and baby Aspirin started due to suspicion for ischemic cardiomyopathy - Cardiology to discuss catheterization upon resolution of bacteremia - Lost >20lbs since admission. - Strict I+Os -- negative fluid balance 04/11-04/12 - Follow renal function. Bilateral Pleural Effusions - CTA Chest showed moderate sized bilateral pleural effusions. suggests LV dysfunction has been present for some time. - repeat CXR on 04/06 showing slight interval decrease in right - suspect transudative secondary to CHF - Pleural effusions suggestive that CHF has likely been a chronic problem over last several months (supporting [id number] presentation) - Continue diuresis as above Morbid Obesity - worsening ROMANO, TTE with elevated RVSP 40-50mmHg - high suspicion for underlying SOHA/OHS, which may also be exacerbating heart disease - CPAP QHS - Will require sleep study as outpatient T2DM - new diagnosis, A1c 7.4 - SSI while hospitalized - consider metformin upon discharge Dyslipidemia - new diagnosis, HDL 29 and Chol:HDL ratio 5 - Atorvastatin as above HTN - Started Entresto/Toprol as above - Has remained largely normotensive since then with few outliers up to 140s/90s - Close BP monitoring given HFrEF, need for afterload reduction; RX as above FEN/GI: DM2, heart healthy, low sodium DVT ppx: Lovenox 40mg SQ Q24H Code Status: Full Code Dispo: Med/Surg (2) Bilateral pleural effusion: (3) Dyspnea on exertion: (4) Hyperglycemia: Admission and Anticipated Discharge Date Admission Date: April 03, 2020 Supervising Physician Co-Signing Physician Notes Resident Physician Supervision Note: I independently interviewed and examined the patient and verified the richardson history and physical, reviewed labs and image studies, discussed the case with the resident Dr. Nguyen and agree with the findings and care plan. Subjective NAEO. Eating breakfast this morning upon my entrance. Said he was able to get some sleep. Denies shortness of breath or coughing over night. Says his breathing is "much better." Denies chest pain or palpitations. Says that his RLE wound hurts a little bit and that it feels 'full.' Denies chills or loss of energy since yesterday. No loss of appetite. Voiding, passing BMs well. Review of Systems Constitutional: no fever, no chills and no sweats Respiratory: no cough and no dyspnea Cardiovascular: no chest pain and no palpitations Gastrointestinal: no nausea Integumentary: as per Subjective / HPI Physical Exam Constitutional: WD/WN, vitals as above Respiratory: Good respiratory effort with symmetric expansion of the chest. Lungs demonstrating decreased breath sounds at the bases bilaterally. No crackles or wheezes. Cardiovascular: NRRR. S1/S2 present without m/r/g Gastrointestinal (Abdomen): normal bowel sounds, soft, nontender, no hepatosplenomegaly Skin: Bandage initially in place on posterior RLE, which was c/d/i. Upon removal, appreciable 4x4 area of moist granulation tissue with overlying patches of pus. There is border erythema. It is mildly TTP. There is 1+ pitting edema in the lower extremities b/l. Results & Data Results & Data ([facility]) Vital Signs (Past 12 Hours) Vital Signs Temp Pulse Resp BP Pulse Ox 04/11/20 22:30 37.1 C 100 H 18 141/91 H 93 Resident Activity Tracking Resident Involvement: Resident Care Provided Care Provided: [facility] Medicine (1) Cellulitis Laterality: right Site of cellulitis: extremity Site of cellulitis of extremity: lower extremity Qualified Code(s): L03.115 - Cellulitis of right lower limb
[2020-04-12 07:45] LABS: BUN Creatinine Ratio 21.1 (10-20); Calcium 8.7 mg/dl (8.5-10.1); Creatinine Clr Calc Pharmacy 122.9 ml/min; Est GFR (Non-African American) 94.9; Potassium 3.9 mmol/L (3.5-5.1)
[2020-04-12] MEDS: POLYETHYLENE (MIRALAX) 17 GM PACK PO SCH ×2 (08:35→20:47)
[2020-04-12] MEDS: ATORVASTATIN 40 MG TAB PO SCH (08:35)
[2020-04-12] MEDS: ASPIRIN 81 MG ECTAB PO SCH (08:35)
[2020-04-12] MEDS: SACUBITRIL-VALSARTAN 24-26 MG TAB PO SCH ×2 (08:35→20:47)
[2020-04-12] MEDS: METOPROLOL SUCC 25MG EXT REL TAB PO SCH (08:35)
[2020-04-12] MEDS: FUROSEMIDE 40 MG in SYRINGE 0 ML IV SCH ×2 (08:36→20:47)
[2020-04-12] MEDS: INSULIN ASPART 100 UNITS/ML 3 ML PEN SC SCH ×4 (09:03→21:03)
[2020-04-12] MEDS: IBUPROFEN 200 MG TAB PO PRN (15:55)
[2020-04-12] MEDS ORDERED: POLYETHYLENE (MIRALAX) 17 GM PACK PO ONE (19:37)
--- NOTE | 2020-04-12 19:48 | Communication Note ---
Date of Service: April 12, 2020 Received page from nursing earlier tonight that patient was refusing further insulin and BSG checks. Upon arrival, Inder noted his biggest concern was with regards to the Lovenox shots. Proceeded to have open discussion regarding his concerns and questions regarding these items. 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 Engaged in reflective listening and responded to concerns. Patient in understanding that the 'extremes' of BSGs are harmful and certainly to be avoided. Amenable to proceed with BSG checks. Discussed that insulin may be required depending on AC/HS checks, which he demonstrated understanding and agreement to. Will hold off from sliding scale tonight as BSGs have remained stable within the 100-120 range. If HS check returns high (e.g., >200), consider correction. Will discuss further goals/plans tomorrow with rest of primary team. With regards to the Lovenox, patient noted that these make him feel uncomfortable and disrupt his appetite. He also demonstrated concern over the bruises it created on his abdomen (administration sites). Would like to stop the shots altogether (he has refused them throughout today). We discussed the purpose of the shots and the benefits, including preventing VTE while hospitalized, and risks (e.g., injection site discomfort, easy bruising). He understands that in his current state he may be at a higher risk of VTE than if he were not fighting infection. He demonstrated and recounted these items. Lovenox subsequently held on chart. Did not want to discuss other options at that time. Consider SCDs upon revisiting tomorrow -- will be important while patient is bedbound. Received permission to talk with sister from Inder. We went over today's updates. Questions/concerns addressed. We discussed concern of function at home, ability to maintain medication regimen. Discussed having PT/OT see patient before discharge. Discussed switching Lasix to PO from IV soon. Summary: - Patient expressed concerns over BSG checks, insulin, and confusion about diagnosis of diabetes. Similarly with use of Lovenox. We spent thorough time discussing these issues and their reasoning. Engaged in reflective listening. Questions/concerns addressed individually. - Amenable to proceed with BSG checks - Consider insulin SSI adjustment in AM pending BSG check tonight. - Patient would like to discontinue Lovenox. Discussed benefits/risks. Difficulty tonight in proposing alternatives like SCDs, so will revisit in AM. Lovenox discontinued at patient's request. - PT/OT evaluations before leaving - Discuss with CM re: dispositional planning, needs upon discharge - Lasix IV PO when appropriate
[2020-04-12] MEDS ORDERED: SENNOSIDES 8.8 MG/5 ML UDC PO ONE (20:16)
[2020-04-12] MEDS: traZODone HCL 50 MG TAB PO SCH (20:47)
[2020-04-13] MEDS: cefTRIAXone SODIUM 2,000 MG in DEXTROSE 5% 50 ML IV SCH (01:30)
[2020-04-13 07:03] LABS: BUN Creatinine Ratio 21.8 (10-20); Calcium 8.3 mg/dl (8.5-10.1); Est GFR (African American) 104.7; Est GFR (Non-African American) 90.3; Potassium 3.8 mmol/L (3.5-5.1)
[2020-04-13] MEDS: INSULIN ASPART 100 UNITS/ML 3 ML PEN SC SCH ×4 (08:58→22:02)
[2020-04-13] MEDS: SACUBITRIL-VALSARTAN 24-26 MG TAB PO SCH ×2 (08:59→20:22)
[2020-04-13] MEDS: ASPIRIN 81 MG ECTAB PO SCH (08:59)
[2020-04-13] MEDS: ATORVASTATIN 40 MG TAB PO SCH (08:59)
[2020-04-13] MEDS: METOPROLOL SUCC 25MG EXT REL TAB PO SCH (08:59)
[2020-04-13] MEDS: FUROSEMIDE 40 MG in SYRINGE 0 ML IV SCH ×2 (08:59→20:23)
[2020-04-13] MEDS: POLYETHYLENE (MIRALAX) 17 GM PACK PO SCH ×2 (09:00→20:03)
--- NOTE | 2020-04-13 10:21 | Hospitalist Progress Note ---
Date of Service April 13, 2020 Assessment & Plan (1) Cellulitis: Inder Faith is a 49 yo M with no significant PMHx who was admitted to [facility] on 04/03/2020, now presenting with bacteremia and bilateral lower extremity cellulitis + new onset CHF Group G Beta Strep Bacteremia 2/2 cellulitis - clinically, appearing well - pain level improving, although feet are still painful especially with walking. - right leg wound culture positive for Group G Beta Strep (bui-sensitive) and MSSA, initial BCX are positive (06/01) for Group G Beta Strep (bui-sensitive) as well - Continue ceftriaxone to meet 14 days' worth of ABX (end 04/16) -- can be continued at SNF or as an outpatient if discharged prior to course completion - Repeat BCX demonstrating NGTD Acute on Chronic HFrEF -- still hypervolemic on exam, but diuresing well with decreasing daily weights - ROMANO/orthopnea/LE edema for at least several weeks, TTE showed EF 25-30% with severe global hypokinesis of LV - new diagnosis of CHF - Continue Lasix 40mg IV BID -- consider transition to 40mg PO b.i.d. upon discharge - Entresto 24/26mg PO BID and Toprol XL 25mg PO daily - titrate as tolerated - Atorvastatin 40mg PO QAM and baby Aspirin started due to suspicion for ischemic cardiomyopathy - Cardiology to discuss catheterization upon resolution of bacteremia - Strict I+Os -- negative fluid balance reported since 04/11 - Daily weights - lost >30lbs since admission - high likely of readmission due to concern of incapacity for dietary compliance. consider further discussion with case mx. Bilateral Pleural Effusions -- stable - CTA Chest showed moderate sized bilateral pleural effusions. suggests LV dysfunction has been present for some time. - repeat CXR on 04/06 showing slight interval decrease in right - suspect transudative secondary to CHF - Pleural effusions suggestive that CHF has likely been a chronic problem over last several months (supporting [id number] presentation) - consider diagnostic/therapeutic thoracentesis if SOB worsens - diuresis as above Morbid Obesity - worsening ROMANO, TTE with elevated RVSP 40-50mmHg - high suspicion for underlying SOHA/OHS, which may also be exacerbating heart disease - CPAP QHS - Will require sleep study as outpatient T2DM (new diagnosis) -- blood sugars demonstrating normalcy on daily AC/HS checks - new diagnosis, A1c 7.4 - qAC/HS BSG checks -- SSI when indicated - consider metformin upon discharge Dyslipidemia - new diagnosis, HDL 29 and Chol:HDL ratio 5 - Atorvastatin as above HTN - Started Entresto/Toprol as above - Has remained largely normotensive since then with few outliers up to 140s/90s - Close BP monitoring given HFrEF, need for afterload reduction; RX as above Disposition Planning - [facility]ita [facility] ([facility]) contacted 04/10, expect to hear back 04/14 AM regarding approval - Patient / family demonstrating concerns of general function, mobility - PT, OT evaluation while here - *Will require coordination of IV antibiotics once discharged -- can be done at SNF or as outpatient - CM closely following Dispo: Med/Surg -- as above FEN/GI: heart healthy, low sodium (DM2/CC diet discontinued at patient request) DVT ppx: At patient request, Lovenox discontinued (see comm. note). Trial SCDs, ambulation Consults: PT, OT, Cardiology Code Status: Full Code (2) Bilateral pleural effusion: (3) Dyspnea on exertion: (4) Hyperglycemia: Admission and Anticipated Discharge Date Admission Date: April 03, 2020 Supervising Physician Co-Signing Physician Notes Resident Physician Supervision Note: I independently interviewed and examined the patient and verified the richardson history and physical, reviewed labs and image studies, discussed the case with the resident Dr. Nguyen and agree with the findings and care plan. Subjective Patient seen at bedside this morning, reports feeling well overall. No complaints. Please see communication note entered last night for further details regarding his Lovenox and blood sugar checks. He reports no pain this morning. Says that his breathing is easy and without difficulty. We did discuss his general functionality, including ability to walk. His sister had noted to me that he has fallen in the past at home. On r eview this morning, Inder does have concerns of his own with regards ambulation. He feels that he may be uneasy on his feet and may require a walker to get around. He would like to see PT and OT before his discharge. He denies any chest pain, palpitations, shortness of breath. Did have a bowel movement last night. Appetite has been good. Finished all of his breakfast. Review of Systems Review of Systems: As per HPI Physical Exam Constitutional: Well, but tired appearing 49-year-old male who is sitting at the side of his bed just having finished breakfast prior to my arrival. On conversing, he does speak freely and without any shortness of breath. No acute distress. Respiratory: Good respiratory effort with symmetric expansion of the chest. There continues to be mild diminishment of breath sounds at both of his bases, but lungs are otherwise clear to auscultation. Cardiovascular: Normal rate and regular rhythm, S1 and S2 are present without murmurs rubs or gallops. 1+ pitting edema in the lower extremities bilaterally. Hepatojugular reflex is positive this morning. When seated at 90 degrees, mild JVD is appreciated about 2 cm above the clavicle. Gastrointestinal (Abdomen): Normal active bowel sounds. Abdomen is soft, nontender, nondistended. Skin: The right lower extremity has a bandage in place which is clean dry and intact. There is mild erythema surrounding the bandage, very mild tenderness to palpation. Redness is noted in his right foot. Similarly, erythema and mild induration is noted at the MTP junction on the left foot. Patient reports that this is gotten much better over time. Results & Data Results & Data ([facility]) Vital Signs (Past 12 Hours) Vital Signs Temp Pulse Resp BP Pulse Ox 04/13/20 06:32 36.9 C 87 20 112/74 95 04/12/20 22:30 37.3 C 91 H 16 125/82 95 Resident Activity Tracking Resident Involvement: Resident Care Provided Care Provided: Adult Hospital Medicine (1) Cellulitis Laterality: right Site of cellulitis: extremity Site of cellulitis of extremity: lower extremity Qualified Code(s): L03.115 - Cellulitis of right lower limb
[2020-04-13] MEDS ORDERED: MELATONIN 3 MG TAB PO PRN (10:38)
[2020-04-13] MEDS: ACETAMINOPHEN 325 MG TAB PO PRN ×2 (13:09→18:07)
[2020-04-13] MEDS: IBUPROFEN 200 MG TAB PO PRN (19:53)
[2020-04-13] MEDS: traZODone HCL 50 MG TAB PO SCH (20:22)
[2020-04-13] MEDS: MELATONIN 3 MG TAB PO PRN (22:32)
[2020-04-14] MEDS: cefTRIAXone SODIUM 2,000 MG in DEXTROSE 5% 50 ML IV SCH (01:55)
[2020-04-14] MEDS: ACETAMINOPHEN 325 MG TAB PO PRN ×3 (02:40→21:53)
[2020-04-14 06:53] LABS: BUN Creatinine Ratio 24.4 (10-20); Creatinine Clr Calc Pharmacy 112.8 ml/min; Est GFR (African American) 102.2; Est GFR (Non-African American) 88.2; Potassium 3.9 mmol/L (3.5-5.1)
[2020-04-14] MEDS: POLYETHYLENE (MIRALAX) 17 GM PACK PO SCH ×2 (09:04→20:52)
--- NOTE | 2020-04-14 09:05 | Hospitalist Progress Note ---
Date of Service April 14, 2020 Assessment & Plan (1) Cellulitis: Inder Faith is a 49 yo M with no significant PMHx who was admitted to [facility] on 04/03/2020, now presenting with bacteremia and bilateral lower extremity cellulitis + new onset CHF Group G Beta Strep Bacteremia 2/2 cellulitis - clinically, appearing well - pain level improving, although feet are still painful especially with walking. - right leg wound culture positive for Group G Beta Strep (bui-sensitive) and MSSA, initial BCX are positive (06/01) for Group G Beta Strep (bui-sensitive) as well - Continue ceftriaxone to meet 14 days' worth of ABX (end 04/16) -- can be continued at SNF or as an outpatient if discharged prior to course completion - Repeat BCX demonstrating NGTD Acute on Chronic HFrEF -- still hypervolemic on exam, but diuresing well with decreasing daily weights - ROMANO/orthopnea/LE edema for at least several weeks, TTE showed EF 25-30% with severe global hypokinesis of LV - new diagnosis of CHF - Continue Lasix 40mg IV BID -- consider transition to 40mg PO b.i.d. upon discharge - Entresto 24/26mg PO BID and Toprol XL 25mg PO daily - titrate as tolerated - Atorvastatin 40mg PO QAM and baby Aspirin started due to suspicion for ischemic cardiomyopathy - Cardiology to discuss catheterization upon resolution of bacteremia - Strict I+Os -- negative fluid balance reported since 04/11 - Daily weights - lost >30lbs since admission - high likely of readmission due to concern of incapacity for dietary compliance. consider further discussion with case mx. Bilateral Pleural Effusions -- stable - CTA Chest showed moderate sized bilateral pleural effusions. suggests LV dysfunction has been present for some time. - repeat CXR on 04/06 showing slight interval decrease in right - suspect transudative secondary to CHF - Pleural effusions suggestive that CHF has likely been a chronic problem over last several months (supporting [id number] presentation) - consider diagnostic/therapeutic thoracentesis if SOB worsens - diuresis as above Morbid Obesity - worsening ROMANO, TTE with elevated RVSP 40-50mmHg - high suspicion for underlying SOHA/OHS, which may also be exacerbating heart disease - CPAP QHS - Will require sleep study as outpatient T2DM (new diagnosis) -- blood sugars demonstrating normalcy on daily AC/HS checks - new diagnosis, A1c 7.4 - qAC/HS BSG checks -- SSI when indicated - consider metformin upon discharge Dyslipidemia - new diagnosis, HDL 29 and Chol:HDL ratio 5 - Atorvastatin as above HTN - Started Entresto/Toprol as above - Has remained largely normotensive since then with few outliers up to 140s/90s - Close BP monitoring given HFrEF, need for afterload reduction; RX as above Disposition Planning - [place] ([facility]) contacted by CM--no info yet but likely will not qualify as PT reports he is independent with ambulation - Patient / family demonstrating concerns of general function, mobility - PT, OT evaluation while here - PT considers he is independent and able to ambulate without assistance--no further PT needs - OT recommending home health OT - *Will require coordination of IV antibiotics if discharged before completion -- can be done at SNF or as outpatient - CM closely following Dispo: Med/Surg -- as above FEN/GI: heart healthy, low sodium (DM2/CC diet discontinued at patient request) DVT ppx: At patient request, Lovenox discontinued (see comm. note). Trial SCDs, ambulation Consults: PT, OT, Cardiology Code Status: Full Code (2) Bilateral pleural effusion: (3) Dyspnea on exertion: (4) Hyperglycemia: Admission and Anticipated Discharge Date Admission Date: April 03, 2020 Supervising Physician Co-Signing Physician Notes I personally examined the patient and verified all richardson points of history and exam, discussed case, and agree with decision making with Dr Lomeli. Feeling better overall. Is okay with the idea of going to SNF, but notes that he does not want to go till Tuesday. Legs are feeling better, breathing is doing better. Vitals noted, in general he is awake and alert pleasant no distress. HEENT normocephalic atraumatic mucous membranes are moist. Lung sounds are diminished on the right, but otherwise clear no rales rhonchi or wheezes good effort. Lower extremity edema appears to be significantly improved, and there is no tracking erythema. Right leg ulcer with gram-positive bacteremiafinish out antibiotics Newly diagnosed systolic CHFcontinue afterload reduction, continue to follow closely, diurese as necessary, ischemic work-up in the near future/as an outpatient. New diagnosis type 2 [id number] is 7.4. Supplemental insulin here in the hospital (sugars reasonable), hopefully lifestyle change at homeit appears that soda is largely his biggest culprit. His mother noted he also eats a lot of bread. Venous stasisimproved now that he is getting more mobile, continue to encourage mobility, long-term encourage weight loss. Morbid obesity with a BMI of 48.9probably driving most of his comorbidities Subjective Patient seen this AM. Sitting at edge of bed after having breakfast. He was very happy with his food. Says he is feeling better. The redness in his legs is better according to him and his pain remains but isn't as bad. Expresses he will work with PT today but wants to take it gradually. Says he continues to feel better when he gets the diuretics. No CP, palpitations, n/v, constipation, diarrhea. SOB better. Review of Systems Review of Systems: All systems reviewed & are unremarkable except as noted in Subjective Physical Exam Constitutional: WD/WN, vitals as above + morbidly obese; no acute distress Neck: normal visual inspection Respiratory: normal respiratory effort, lungs clear to auscultation no labored breathing Auscultation: + diminished lung sounds (at bilateral bases) Cardiovascular: Rate/Rhythm: regular rate and regular rhythm Heart Sounds: normal S1 and normal S2 Vessels: + JVD Extremities: + edema (1+ pitting at BLE) Gastrointestinal (Abdomen): normal bowel sounds, soft, nontender, no hepatosplenomegaly Skin: Clean, dry, intact dressing al RLE. Tenderness to palpation around dressing. Redness at right foot, which has been improving. Erythema at left foot, much better than during the past week. Psychiatric: A+Ox3, euthymic affect Orientation: cooperative Results & Data Results & Data ([facility]) Vital Signs (Past 12 Hours) Vital Signs Temp Pulse Resp BP Pulse Ox 04/14/20 08:00 37.1 C 85 18 106/69 95 04/13/20 22:55 37.1 C 87 14 106/68 96 Resident Activity Tracking Resident Involvement: Resident Care Provided Care Provided: Adult Hospital Medicine (1) Cellulitis Laterality: right Site of cellulitis: extremity Site of cellulitis of extremity: lower extremity Qualified Code(s): L03.115 - Cellulitis of right lower limb
[2020-04-14] MEDS: IBUPROFEN 200 MG TAB PO PRN ×2 (09:08→17:09)
[2020-04-14] MEDS: ATORVASTATIN 40 MG TAB PO SCH (09:09)
[2020-04-14] MEDS: ASPIRIN 81 MG ECTAB PO SCH (09:09)
[2020-04-14] MEDS: SACUBITRIL-VALSARTAN 24-26 MG TAB PO SCH ×2 (09:09→20:51)
[2020-04-14] MEDS: FUROSEMIDE 40 MG in SYRINGE 0 ML IV SCH ×2 (09:09→20:51)
[2020-04-14] MEDS: METOPROLOL SUCC 25MG EXT REL TAB PO SCH (09:10)
[2020-04-14] MEDS: INSULIN ASPART 100 UNITS/ML 3 ML PEN SC SCH ×4 (09:28→20:52)
--- NOTE | 2020-04-14 15:06 | Cardiology Progress Note ---
Date of Service April 14, 2020 Assessment & Plan (1) Acute on chronic systolic (congestive) heart failure: -has diuresed well. -moderate to severe global hypokinesis with an ejection fraction of 25- 30%. -tolerating Entresto and metoprolol succinate. -leaning toward and Lexiscan stress test to rule out coronary artery disease. (2) Bilateral pleural effusion: -moderate pleural effusion suggests left ventricular dysfunction is not acute. (3) Abnormal ECG: -left axis deviation, interventricular conduction delay, and poor R-wave progression across the anterior precordium. Admission and Anticipated Discharge Date Admission Date: April 03, 2020 Subjective The patient is resting comfortably in bed without complaints of chest pain or dyspnea. Physical Exam Physical Exam: In general this is an obese white male sees at the bedside without complaints. HEENT exam is negative. Neck is supple with full carotid upstrokes. No carotid bruits. Jugular venous pressure is difficult to assess. Cardiovascular exam reveals a regular rhythm with distant heart sounds. No obvious murmurs. No S3. Lungs note decreased breath sounds at bases but no rales, rhonchi, or wheezes. Abdomen is obese without bruits. Extremities note intact radial artery pulses bilaterally. There is trace pretibial edema bilaterally. Results & Data ([facility]) Vital Signs (Past 12 Hours) Vital Signs Temp Pulse Resp BP Pulse Ox 04/14/20 14:57 36.6 C 91 H 16 115/77 97 04/14/20 08:00 37.1 C 85 18 106/69 95 PG Care Time/CCT Total # of Minutes Spent Total Time Spent with Patient: Total time spent is greater than 50% in coordination of care (as documented) at patient's floor/unit and/or counseling patient: Coding Level of Care Code 79204 Subseq Hosp Care Lvl 3 Diagnoses Acute on chronic systolic (congestive) heart failure I50.23 Bilateral pleural effusion J90 Abnormal ECG R94.31
--- NOTE | 2020-04-14 18:53 | Billing Data ---
Date of Service April 14, 2020 Coding Level of Care Code 90561 Subseq Hosp Care Lvl 3
[2020-04-14] MEDS: traZODone HCL 50 MG TAB PO SCH (20:50)
[2020-04-14] MEDS: MELATONIN 3 MG TAB PO PRN (20:51)
[2020-04-15] MEDS: cefTRIAXone SODIUM 2,000 MG in DEXTROSE 5% 50 ML IV SCH (01:30)
[2020-04-15] MEDS: ACETAMINOPHEN 325 MG TAB PO PRN ×3 (02:18→20:56)
--- NOTE | 2020-04-15 07:02 | Hospitalist Progress Note ---
Date of Service April 15, 2020 Assessment & Plan (1) Cellulitis: Inder Faith is a 49 yo M with no significant PMHx who was admitted to [facility] on 04/03/2020, now presenting with bacteremia and bilateral lower extremity cellulitis + new onset CHF Group G Beta Strep Bacteremia 2/2 cellulitis - clinically, appearing well - pain level improving, although feet are still painful especially with walking. - right leg wound culture positive for Group G Beta Strep (bui-sensitive) and MSSA, initial BCX are positive (/) for Group G Beta Strep (bui-sensitive) as well - Continue ceftriaxone to meet 14 days' worth of ABX (end 04/16) -- can be continued at SNF or as an outpatient if discharged prior to course completion - Repeat BCX w/ no growth (final) Acute on Chronic HFrEF -- still hypervolemic on exam, but diuresing well with decreasing daily weights - ROMANO/orthopnea/LE edema for at least several weeks, TTE showed EF 25-30% with severe global hypokinesis of LV - new diagnosis of CHF - Continue Lasix 40mg IV BID -- consider transition to 40mg PO b.i.d. upon discharge - Entresto 24/26mg PO BID and Toprol XL 25mg PO daily - titrate as tolerated - Atorvastatin 40mg PO QAM and baby Aspirin started due to suspicion for ischemic cardiomyopathy - Cardiology leaning toward Lexiscan stress test to rule out coronary artery disease - Strict I+Os -- negative fluid balance reported since 04/11 - Daily weights - lost >30lbs since admission--continues to lose weight daily - high likely of readmission due to concern of incapacity for dietary compliance. consider further discussion with case mx. Bilateral Pleural Effusions -- stable - CTA Chest showed moderate sized bilateral pleural effusions. suggests LV dysfunction has been present for some time. - repeat CXR on 04/06 showing slight interval decrease in right - suspect transudative secondary to CHF - Pleural effusions suggestive that CHF has likely been a chronic problem over last several months (supporting [id number] presentation) - consider diagnostic/therapeutic thoracentesis if SOB worsens - diuresis as above Morbid Obesity - worsening ROMANO, TTE with elevated RVSP 40-50mmHg - high suspicion for underlying SOHA/OHS, which may also be exacerbating heart disease - CPAP QHS - Will require sleep study as outpatient T2DM (new diagnosis) -- blood sugars demonstrating normalcy on daily AC/HS checks - new diagnosis, A1c 7.4 - qAC/HS BSG checks -- SSI when indicated - consider metformin upon discharge Dyslipidemia - new diagnosis, HDL 29 and Chol:HDL ratio 5 - Atorvastatin as above HTN - Started Entresto/Toprol as above - Has remained largely normotensive since then with few outliers up to 140s/90s - Close BP monitoring given HFrEF, need for afterload reduction; RX as above Disposition Planning - [facility] ([facility]) contacted by CM--no info yet but likely will not qualify as PT reports he is independent with ambulation - Patient / family demonstrating concerns of general function, mobility - PT, OT evaluation while here - PT considers he is independent and able to ambulate without assistance--no further PT needs - OT recommending home health OT - *Will require coordination of IV antibiotics if discharged before completion -- can be done at [facility] or as outpatient - CM closely following Dispo: Med/Surg -- as above FEN/GI: heart healthy, low sodium (DM2/CC diet discontinued at patient request) DVT ppx: At patient request, Lovenox discontinued (see comm. note). Trial SCDs, ambulation Consults: PT, OT, Cardiology Code Status: Full Code (2) Bilateral pleural effusion: (3) Dyspnea on exertion: (4) Hyperglycemia: Admission and Anticipated Discharge Date Admission Date: April 03, 2020 Supervising Physician Co-Signing Physician Notes I personally examined the patient and verified all richardson points of history and exam, discussed case, and agree with decision making with Dr Lomeli. walking better. breathing well. very talkative Vitals noted, in general he is awake and alert pleasant no distress. HEENT normocephalic atraumatic mucous membranes are moist. breathing unlabored no accessory muscles good effort no conversational dyspnea. Lower extremity edema appears to be significantly improved from last week - stable from yseterday, and there is no tracking erythema. ulcer appears healing Right leg ulcer with gram-positive bacteremiafinish out antibiotics to complete 14 days Newly diagnosed systolic CHFcontinue afterload reduction, continue to follow closely, ongoing diuretics w switch to PO soon, ischemic work-up in the near future/as an outpatient. New diagnosis type 2 [id number] is 7.4. Supplemental insulin here in the hospital (sugars reasonable), emphasized need for lifestyle change today focusing specifically on soda Venous stasisimproved now that he is getting more mobile, continue to encourage mobility, long-term encourage weight loss. Morbid obesity with a BMI now down to 44.4 probably driving most of his comorbidities Subjective Patient seen sitting at edge of bed. Had just had breakfast, tolerating meal well. Reports he feels good this AM, but did mention had pain in his feet that is about 8/10 so expressed that he wanted Tylenol from RN. No CP, palpitations. Feels well in terms of breathing, no SOB working with PT per hi, but did say he felt his balance was a bit off. Review of Systems Review of Systems: All systems reviewed & are unremarkable except as noted in Subjective Physical Exam Constitutional: WD/WN, vitals as above no acute distress Respiratory: normal respiratory effort, lungs clear to auscultation Auscultation: + diminished lung sounds (at bases, possibly due to body habitus) Cardiovascular: Rate/Rhythm: regular rate and regular rhythm Heart Sounds: normal S1 and normal S2 Extremities: + edema (BLE 1+ pitting edema) Gastrointestinal (Abdomen): normal bowel sounds, soft, nontender, no hepatosplenomegaly Skin: no rashes, warm and dry Neurologic: PERRL, EOMI, accommodation nl, no face palsy, no dysarthria Psychiatric: A+Ox3, euthymic affect Results & Data Results & Data ([facility]) Vital Signs (Past 12 Hours) Vital Signs Temp Pulse Resp BP Pulse Ox 04/14/20 22:41 37 C 91 H 18 119/81 97 Resident Activity Tracking Resident Involvement: Resident Care Provided Care Provided: Adult Hospital Medicine (1) Cellulitis Laterality: right Site of cellulitis: extremity Site of cellulitis of extremity: lower extremity Qualified Code(s): L03.115 - Cellulitis of right lower limb
[2020-04-15 07:10] LABS: Hematocrit (blood only) 39.1 % (42-52); Hemoglobin 12.6 g/dL (14.0-18.0); Mean Corpuscular Hemoglobin 27.9 pg (25-34); Mean Corpuscular Hgb Conc 32.2 g/dL (32-36); Mean Corpuscular Volume 86.5 fL (80-100); Mean Platelet Volume 11.4 fL (7.4-10.4); Platelet Count 229 K/uL (130-400); RDW Coefficient of Variation 15.7 % (11.5-14.5); RDW Standard Deviation 50.1 fL (36.4-46.3); Red Blood Count 4.52 M/uL (4.7-6.1)
[2020-04-15 07:27] LABS: BUN Creatinine Ratio 29.1 (10-20); Calcium 7.9 mg/dl (8.5-10.1); Creatinine Clr Calc Pharmacy 117.5 ml/min; Est GFR (African American) 107.3; Est GFR (Non-African American) 92.6; Potassium 4.3 mmol/L (3.5-5.1)
[2020-04-15] MEDS: POLYETHYLENE (MIRALAX) 17 GM PACK PO SCH ×2 (09:00→20:57)
[2020-04-15] MEDS: INSULIN ASPART 100 UNITS/ML 3 ML PEN SC SCH ×4 (09:12→21:32)
[2020-04-15] MEDS: SACUBITRIL-VALSARTAN 24-26 MG TAB PO SCH ×2 (09:15→20:58)
[2020-04-15] MEDS: METOPROLOL SUCC 25MG EXT REL TAB PO SCH (09:15)
[2020-04-15] MEDS: ASPIRIN 81 MG ECTAB PO SCH (09:15)
[2020-04-15] MEDS: ATORVASTATIN 40 MG TAB PO SCH (09:15)
[2020-04-15] MEDS: FUROSEMIDE 40 MG in SYRINGE 0 ML IV SCH ×2 (10:41→20:58)
--- NOTE | 2020-04-15 12:56 | Cardiology Progress Note ---
Date of Service April 15, 2020 Assessment & Plan (1) Acute on chronic systolic (congestive) heart failure: -continues to diurese well on Lasix 40 mg IV b.i.d. -moderate to severe global hypokinesis with an ejection fraction of 25- 30%. -tolerating Entresto. -will increase metoprolol succinate to 50 mg daily. -outpatient Lexiscan stress test during my hospital week, April 28 through the . (2) Bilateral pleural effusion: -moderate pleural effusion suggests left ventricular dysfunction is chronic. (3) Abnormal ECG: -left axis deviation, interventricular conduction delay, and poor R-wave progression across the anterior precordium. Admission and Anticipated Discharge Date Admission Date: April 03, 2020 Subjective The patient is resting comfortably in bed without complaints of chest pain or dyspnea. Physical Exam Physical Exam: In general this is an obese white male sees at the bedside without complaints. HEENT exam is negative. Neck is supple with full carotid upstrokes. No carotid bruits. Jugular venous pressure is difficult to assess. Cardiovascular exam reveals a regular rhythm with distant heart sounds. No obvious murmurs. No S3. Lungs note decreased breath sounds at bases but no rales, rhonchi, or wheezes. Abdomen is obese without bruits. Extremities note intact radial artery pulses bilaterally. There is trace pretibial edema bilaterally. Results & Data ([facility]) Vital Signs (Past 12 Hours) Vital Signs Temp Pulse Resp BP Pulse Ox 04/15/20 07:21 36.9 C 95 H 16 123/86 97 PG Care Time/CCT Total # of Minutes Spent Total Time Spent with Patient: Total time spent is greater than 50% in coordination of care (as documented) at patient's floor/unit and/or counseling patient: Coding Level of Care Code 21156 Subseq Hosp Care Lvl 3 Diagnoses Acute on chronic systolic (congestive) heart failure I50.23 Bilateral pleural effusion J90 Abnormal ECG R94.31
--- NOTE | 2020-04-15 12:57 | Billing Data ---
Date of Service April 15, 2020 Coding Level of Care Code 46730 Subseq Hosp Care Lvl 3
[2020-04-15] MEDS: MELATONIN 3 MG TAB PO PRN (20:57)
[2020-04-15] MEDS: traZODone HCL 50 MG TAB PO SCH (20:57)
[2020-04-16] MEDS: IBUPROFEN 200 MG TAB PO PRN (06:47)
[2020-04-16 07:15] LABS: BUN Creatinine Ratio 28.6 (10-20); Calcium 8.1 mg/dl (8.5-10.1); Creatinine Clr Calc Pharmacy 116.3 ml/min; Est GFR (Non-African American) 91.4; Potassium 3.9 mmol/L (3.5-5.1)
--- NOTE | 2020-04-16 08:08 | Hospitalist Progress Note ---
Date of Service April 16, 2020 Assessment & Plan (1) Cellulitis: Inder Faith is a 49 yo M with no significant PMHx who was admitted to [facility] on 04/03/2020, now presenting with bacteremia and bilateral lower extremity cellulitis + new onset CHF Group G Beta Strep Bacteremia 2/2 cellulitis - clinically, appearing well - pain level improving - right leg wound culture positive for Group G Beta Strep (bui-sensitive) and MSSA, initial BCX are positive (/) for Group G Beta Strep (bui-sensitive) as well - Treated with ceftriaxone to meet 14 days' worth of ABX (end 04/16) - Repeat BCX w/ no growth (final) Acute on Chronic HFrEF -- still hypervolemic on exam, but diuresing well with decreasing daily weights - ROMANO/orthopnea/LE edema for at least several weeks, TTE showed EF 25-30% with severe global hypokinesis of LV - new diagnosis of CHF - Continue Lasix 40mg IV BID -- consider transition to 40mg PO b.i.d. upon discharge - Entresto 24/26mg PO BID and Toprol XL 25mg PO daily - titrate as tolerated - Atorvastatin 40mg PO QAM and baby Aspirin started due to suspicion for ischemic cardiomyopathy - Cardiology leaning toward Lexiscan stress test to rule out coronary artery disease - Strict I+Os -- negative fluid balance reported since 04/11 - Daily weights - lost >30lbs since admission--continues to lose weight daily - high likelihood of readmission due to concern of incapacity for dietary c ompliance. consider further discussion with case mx. Bilateral Pleural Effusions -- stable - CTA Chest showed moderate sized bilateral pleural effusions. suggests LV dysfunction has been present for some time. - repeat CXR on 04/06 showing slight interval decrease in right - suspect transudative secondary to CHF - Pleural effusions suggestive that CHF has likely been a chronic problem over last several months (supporting [id number] presentation) - diuresis as above Morbid Obesity - worsening ROMANO, TTE with elevated RVSP 40-50mmHg - high suspicion for underlying SOHA/OHS, which may also be exacerbating heart disease - CPAP QHS - Will require sleep study as outpatient T2DM (new diagnosis) -- blood sugars demonstrating normalcy on daily AC/HS checks - new diagnosis, A1c 7.4 - qAC/HS BSG checks -- SSI when indicated - consider metformin upon discharge Dyslipidemia - new diagnosis, HDL 29 and Chol:HDL ratio 5 - Atorvastatin as above HTN - Started Entresto/Toprol as above - Has remained largely normotensive since then with few outliers up to 140s/90s - Close BP monitoring given HFrEF, need for afterload reduction; RX as above Disposition Planning - Patient / family demonstrating concerns of general function, mobility - PT, OT evaluation while here - PT considers he is independent and able to ambulate without assistance--no further PT needs - OT recommending home health OT - CM closely following--relayed possible plan of DC home tomorrow with arrangements being made for assistance in the home and eventually possibly disability Dispo: Med/Surg -- as above FEN/GI: heart healthy, low sodium (DM2/CC diet discontinued at patient request) DVT ppx: At patient request, Lovenox discontinued (see comm. note). SCDs, ambulation Consults: PT, OT, Cardiology Code Status: Full Code (2) Bilateral pleural effusion: (3) Dyspnea on exertion: (4) Hyperglycemia: Admission and Anticipated Discharge Date Admission Date: April 03, 2020 Supervising Physician Co-Signing Physician Notes I personally examined the patient and verified all richardson points of history and exam, discussed case, and agree with decision making with Dr Lomeli. using an electric razor and informs me that he doesn't really want to be bothered right now. offers to shave part of my hair as well, i decline. does note breathing is going well and believes he's moving a lot of fluid and still has a lot to move. Vitals noted, in general he is awake and alert pleasant no distress. HEENT normocephalic atraumatic mucous membranes are moist. breathing unlabored no accessory muscles good effort no conversational dyspnea. legs/skin no tracking erytehma Right leg ulcer with gram-positive bacteremiafinishing out antibiotics to complete 14 days Newly diagnosed systolic CHFcontinue afterload reduction, continue to follow closely, ongoing diuretics w switch to PO in near future. appearing closer to euvolemic, ischemic work-up in the near future/as an outpatient. New diagnosis type 2 [id number] is 7.4. Supplemental insulin here in the hospital (sugars showing good control), emphasized need for lifestyle change today focusing specifically on soda Venous stasisimproved now that he is getting more mobile, continue to encourage mobility, long-term encourage weight loss. Morbid obesity with a BMI now down to 42.5 probably driving most of his comorbidities Subjective Patient sitting at edge of bed this AM. Had just had breakfast. He says his legs are feeling much better. He still complains of some pain in his feet with ambulation but much improved from before. Worked well with PT and says he has taken it upon himself to walk around outside of his room as well. I encouraged this and said that would help with edema as well as building up his tolerance too. Review of Systems Review of Systems: All systems reviewed & are unremarkable except as noted in Subjective Physical Exam Physical Exam: General: No acute distress. Cooperative. A&Ox3. HEENT: Normocephalic, atraumatic Resp: No increased work of breathing, no respiratory distress. CTAB Cardiac: RRR, no m/r/g. No JVD GI: Abd soft, NT/ND, BS x 4 Extremities: Bilateral leg swelling, much improved. Ulcer on posterior aspect of lower right leg covere with c/d/i dressing Results & Data Results & Data ([facility]) Vital Signs (Past 12 Hours) Vital Signs Temp Pulse Resp BP Pulse Ox 04/15/20 23:16 36.9 C 83 18 97/60 L 94 04/15/20 21:01 99 H 20 132/87 96 Resident Activity Tracking Resident Involvement: Resident Care Provided Care Provided: Adult Hospital Medicine (1) Cellulitis Laterality: right Site of cellulitis: extremity Site of cellulitis of extremity: lower extremity Qualified Code(s): L03.115 - Cellulitis of right lower limb
[2020-04-16] MEDS: POLYETHYLENE (MIRALAX) 17 GM PACK PO SCH ×2 (08:37→20:38)
[2020-04-16] MEDS: FUROSEMIDE 40 MG in SYRINGE 0 ML IV SCH ×2 (08:37→20:36)
[2020-04-16] MEDS: ASPIRIN 81 MG ECTAB PO SCH (08:38)
[2020-04-16] MEDS: SACUBITRIL-VALSARTAN 24-26 MG TAB PO SCH ×2 (08:38→20:37)
[2020-04-16] MEDS: METOPROLOL SUCC 50MG EXT REL TAB PO SCH (08:38)
[2020-04-16] MEDS: ATORVASTATIN 40 MG TAB PO SCH (08:39)
[2020-04-16] MEDS: INSULIN ASPART 100 UNITS/ML 3 ML PEN SC SCH ×4 (08:44→21:13)
[2020-04-16] MEDS: ACETAMINOPHEN 325 MG TAB PO PRN ×2 (12:45→17:15)
--- NOTE | 2020-04-16 13:13 | Billing Data ---
Date of Service April 16, 2020 Coding Level of Care Code 35320 Subseq Hosp Care Lvl 3
--- NOTE | 2020-04-16 14:09 | Heart Failure Progress Note ---
Date of Service April 16, 2020 Assessment & Plan (1) Acute on chronic systolic (congestive) heart failure: He remains hypervolemic. Would continue to IV diuretics until creatinine bumps. Patient high risk for readmission due to poor medical literacy, noncompliance, and poor follow up. Would prefer to optimize his volume status as much as possible while inpatient. Continue Lasix 40 mg IV b.i.d. Would also recommend transition to oral regimen prior to discharge to ensure neutral or negative fluid balance. Continue to monitor kidney function and electrolytes. Continue daily standing weights, discussed with nursing today. Should continue accurate I&Os during hospitalization. Low sodium diet. CHF teaching packet ordered. Moderate to severe global hypokinesis with an ejection fraction of 25-30%. Planning on outpatient Dr. Nelson Pineda to arrange. Consider secondary workup if ischemic workup negative. Patient is on appropriate guideline based therapy. Continue Entresto 24/26 mg BID. Continue Metoprolol 50 mg daily. Would continue to titrate during hospitalization to optimize rate control as long as BP allows. Target dose will be 200 mg daily. Would try to maximize titration in hospital due to high risk of poor follow up after discharge. Could also consider the addition of Spironolactone at discharge. Patient has been referred to the heart failure program. We discussed the nature of heart failure and the goals of the program today. He is agreeable to participation. He believes his mother or sister will be able to transport him to appointments. Plan to follow up next week, will arrange. Continue daily standing weights at home once discharged. Continue low sodium diet and limit fluid intake. Will need close monitoring of kidney function and electrolytes. (2) Bilateral pleural effusion: -moderate pleural effusion suggests left ventricular dysfunction is chronic. (3) Abnormal ECG: -left axis deviation, interventricular conduction delay, and poor R-wave progression across the anterior precordium. Disposition: Will continue to follow during hospitalization. Anticipate close follow up with the heart failure program. 04/24/20 at 10:30 am. Admission and Anticipated Discharge Date Admission Date: April 03, 2020 Subjective Patient reports he's feeling much improved today. His breathing is better. His edema continues to improve. He slept well with his head slightly elevated. He's documented to be net negative > 6 L so far but there is no intake recorded since yesterday. His weight continues to trend down, 263 lb today on standing scale for a loss of 47 lb. He denies chest pain, cough, or lightheadedness. Physical Exam Physical Exam: Constitutional: Alert, oriented, in no acute distress HEENT: Head is atraumatic and normocephalic. EOMs intact. Sclera anicteric. Face is symmetric. No perioral cyanosis. Mucous membranes moist. Neck: Supple, no JVD Pulmonary: Normal respiratory effort, clear to auscultation bilaterally Cardiac: Regular rate and rhythm. Normal S1 and S2, no gallops, no rubs, no murmurs Extremities: 2+ radial pulses bilaterally. 2+ posterior tibialis pulses bilaterally. 1-2+ bilateral pitting edema. No cyanosis or clubbing. Abdomen: Normal bowel sounds, soft, non-tender, no abdominal mass palpated Skin: Normal skin color, turgor, and pigmentation, no rash. Multiple skin lesions. Neurological: Patient is awake, alert, and oriented. Pleasant and cooperative. Answers questions appropriately. Speech is clear. Normal movement in all 4 extremities. Gait pattern is unremarkable. Results & Data ([facility]) Vital Signs (Past 12 Hours) Vital Signs Temp Pulse Resp BP Pulse Ox 04/16/20 08:10 97.9 F 97 H 16 139/94 97 PG Care Time/CCT Total # of Minutes Spent Total Time Spent with Patient: Total time spent is greater than 50% in coordination of care (as documented) at patient's floor/unit and/or counseling patient: Heart Failure Data/Metrics Heart Failure Type: Systolic Ejection Fraction: 25-30% NYHA classification: II: Sx w/ usual activity Risk Stratification: B Dry Weight: 263 lb Weight: 263 lb Pacemaker: No Implanted Cardiac Defibrillator (ICD): No Bi-V Pacemaker: No Bi-V Defibrillator: No Diabetes Mellitus: Yes Evidenced Based Beta Alma Therapy Beta Alma Therapy: Yes Beta Alma Name: Metoprolol Succinate Beta Alma Target Therapy: Not at Target Therapy VESTA/ARB/ARNI Therapy VESTA/ARB/ARNI Therapy: Yes (Entresto 24/26 mg BID) VESTA/ARB/ARNI Target Therapy: Not at Target Therapy Coding Level of Care Code 08598 Subseq Hosp Care Lvl 3 Diagnoses Acute on chronic systolic (congestive) heart failure I50.23 Bilateral pleural effusion J90 Abnormal ECG R94.31
[2020-04-16] MEDS: traZODone HCL 50 MG TAB PO SCH (20:37)
[2020-04-17] MEDS: ACETAMINOPHEN 325 MG TAB PO PRN ×2 (02:36→09:14)
[2020-04-17] MEDS: IBUPROFEN 200 MG TAB PO PRN (05:44)
[2020-04-17 06:46] LABS: BUN Creatinine Ratio 28.9 (10-20); Calcium 8.5 mg/dl (8.5-10.1); Creatinine Clr Calc Pharmacy 106.5 ml/min; Est GFR (African American) 98.6; Est GFR (Non-African American) 85.1; Potassium 4.1 mmol/L (3.5-5.1)
[2020-04-17] MEDS: SACUBITRIL-VALSARTAN 24-26 MG TAB PO SCH (09:15)
[2020-04-17] MEDS: METOPROLOL SUCC 50MG EXT REL TAB PO SCH (09:15)
[2020-04-17] MEDS: POLYETHYLENE (MIRALAX) 17 GM PACK PO SCH (09:15)
[2020-04-17] MEDS: ATORVASTATIN 40 MG TAB PO SCH (09:15)
[2020-04-17] MEDS: FUROSEMIDE 40 MG in SYRINGE 0 ML IV SCH (09:15)
[2020-04-17] MEDS: ASPIRIN 81 MG ECTAB PO SCH (09:15)
[2020-04-17] MEDS: INSULIN ASPART 100 UNITS/ML 3 ML PEN SC SCH ×2 (09:21→12:58)
--- NOTE | 2020-04-17 10:12 | Heart Failure Progress Note ---
Date of Service April 17, 2020 Assessment & Plan (1) Acute on chronic systolic (congestive) heart failure: He remains hypervolemic. Would continue to IV diuretics until creatinine bumps. BUN is slowly climbing. Patient high risk for readmission due to poor medical literacy, noncompliance, and poor follow up. Would prefer to optimize his volume status as much as possible while inpatient. Continue Lasix 40 mg IV b.i.d. Would also recommend transition to oral regimen prior to discharge to ensure neutral or negative fluid balance. Continue to monitor kidney function and electrolytes. Continue daily standing weights, discussed with nursing. Should continue accurate I&Os during hospitalization. Low sodium diet. CHF teaching packet ordered. Moderate to severe global hypokinesis with an ejection fraction of 25-30%. Planning on outpatient Dr. Nelson Pineda to arrange. Consider secondary workup if ischemic workup negative. Patient is on appropriate guideline based therapy. Continue Entresto 24/26 mg BID. Continue Metoprolol 50 mg daily. Would continue to titrate during hospitalization to optimize rate control as long as BP allows. Target dose will be 200 mg daily. Would try to maximize titration in hospital due to high risk of poor follow up after discharge. Could also consider the addition of Spironolactone at discharge. Patient has been referred to the heart failure program. We discussed the nature of heart failure and the goals of the program. He is agreeable to participation. He believes his mother or sister (Shanice) will be able to transport him to appointments. Plan to follow up next week, scheduled for 04/24 at 10:30 am. He is to discuss this with his family to see if they can transport him. Continue daily standing weights at home once discharged. Continue low sodium diet and limit fluid intake. Will need close monitoring of kidney function and electrolytes. (2) Bilateral pleural effusion: -moderate pleural effusion suggests left ventricular dysfunction is chronic. (3) Abnormal ECG: -left axis deviation, interventricular conduction delay, and poor R-wave progression across the anterior precordium. Disposition: Will continue to follow during hospitalization. Anticipate close follow up with the heart failure program. 04/24/20 at 10:30 am. Admission and Anticipated Discharge Date Admission Date: April 03, 2020 Subjective Patient reports he's feeling well today. His breathing is better. He's been more ambulatory and is able to lift his legs easier. His edema continues to improve. He slept well with his head slightly elevated. He's documented to be net negative > 6 L so far but I&Os likely aren't accurate. His weight continues to trend down, 261 lb today on standing scale for a loss of 49 lb. He denies chest pain, cough, or lightheadedness. Physical Exam Physical Exam: Constitutional: Alert, oriented, in no acute distress HEENT: Head is atraumatic and normocephalic. EOMs intact. Sclera anicteric. Face is symmetric. No perioral cyanosis. Mucous membranes moist. Neck: Supple, no JVD Pulmonary: Normal respiratory effort, clear to auscultation bilaterally Cardiac: Regular rate and rhythm. Normal S1 and S2, no gallops, no rubs, no murmurs Extremities: 2+ radial pulses bilaterally. 2+ posterior tibialis pulses bilaterally. 1-2+ bilateral pitting edema. No cyanosis or clubbing. Abdomen: Normal bowel sounds, soft, non-tender, no abdominal mass palpated Skin: Normal skin color, turgor, and pigmentation, no rash. Multiple skin lesions. Neurological: Patient is awake, alert, and oriented. Pleasant and cooperative. Answers questions appropriately. Speech is clear. Normal movement in all 4 extremities. Gait pattern is unremarkable. Results & Data ([facility]) Vital Signs (Past 12 Hours) Vital Signs Temp Pulse Resp BP Pulse Ox 04/17/20 07:24 98.2 F 83 18 111/70 97 04/16/20 23:50 98.1 F 94 H 20 107/73 96 PG Care Time/CCT Total # of Minutes Spent Total Time Spent with Patient: Total time spent is greater than 50% in coordination of care (as documented) at patient's floor/unit and/or counseling patient: Heart Failure Data/Metrics Heart Failure Type: Systolic Evidenced Based Beta Alma Therapy Beta Alma Therapy: Yes Beta Alma Name: Metoprolol Succinate Beta Alma Target Therapy: Not at Target Therapy VESTA/ARB/ARNI Therapy VESTA/ARB/ARNI Therapy: Yes (Entresto) VESTA/ARB/ARNI Target Therapy: Not at Target Therapy Coding Level of Care Code 34729 Subseq Hosp Care Lvl 3 Diagnoses Acute on chronic systolic (congestive) heart failure I50.23 Bilateral pleural effusion J90 Abnormal ECG R94.31
--- NOTE | 2020-04-17 11:59 | Discharge Summary ---
Date of Service April 17, 2020 Admission HPI Per Admitting Provider 49-year-old male with no significant past medical history presented to ER via telemedicine visit for RLE wound. Reports that he started noticing on the back of his calf a small wound about a week ago, does not recall any trauma to the area, some yellowish drainage. Over the last several days it has grown in size. This was noticed by his sister and his mother and he was urged to seek medical treatment. After telemedicine visit with Dr. Campos patient was advised to come into ER for evaluation. On my interview, patient reports that over the last several weeks to months he has had dyspnea on exertion, specifically with walking up stairs such that he will have to stop and catch his breath after going to the top of the stairs which prior to this was unusual for him. No orthopnea. No known history of CHF. In the ER he had a CXR which showed findings suggestive of pleural effusion bilaterally. CT PE protocol performed given RLE swelling and erythema and shortness of breath, which showed atelectasis and moderate sized pleural effusions bilaterally. No PE noted. Ultrasound right lower extremity did not show signs suggestive of DVT. Lab work showed mild leukocytosis to 10.92, mildly elevated BSG to 130s. Patient was given one-time dose Dilaudid for right lower extremity pain and given Zosyn. Admission Exam Per Admitting Provider Constitutional: well developed and + morbidly obese; no acute distress Eyes: PERRL, conjunctivae normal, anicteric sclerae ENMT: external ear and nose normal, oropharynx normal Neck: + short neck Respiratory: Poor air movement throughout, decreased breath sounds right > left. No wheezes noted. No cough. Noted to be saturating to 92% on room air. Cardiovascular: Rate/Rhythm: regular rhythm and + tachycardic Heart Sounds: no murmur Extremities: + edema (To mid sykes, 1+) Gastrointestinal (Abdomen): Inspection/Auscultation: + abdomen distended Percussion/Palpation: abdomen soft; abdomen nontender Musculoskeletal: No cyanosis or clubbing Skin: Posterior right lower extremity with 6x6cm wound with granulation tissue, with surrounding 1-2cm erythema. Tender and warm to the touch. Neurologic: AAOx3, normal speech. Bilateral UE, LE, and face without sensory or motor deficits. No tremor. Psychiatric: A+Ox3, euthymic affect Principal Diagnosis Cellulitis, CHF Discharge Exam General: No acute distress. Cooperative. A&Ox3. HEENT: Normocephalic, atraumatic Resp: No increased work of breathing, no respiratory distress. CTAB Cardiac: RRR, no m/r/g. No JVD GI: Abd soft, NT/ND, BS x 4 Extremities: Bilateral leg swelling, much improved. Ulcer on posterior aspect of lower right leg covered with c/d/i dressing Discharge Data Allergies Allergy/AdvReac Type Severity Reaction Status Date / Time No Known Drug Allergies Allergy . Verified 04/03/20 22:14 Consultations 04/03/20 23:09 ED Decision to Admit Stat 04/04/20 11:47 Consult Cardiology Routine Ordered Studies 04/03/20 22:57 US venous doppler LE RT Urgent 04/03/20 23:27 CT angio chest PE protocol Urgent 04/08/20 14:30 US venous doppler LE RT Routine Diabetes Follow up Diabetes Follow-up Needed for Newly Diagnosed Diabetes Hospital Course (1) Cellulitis: Inder is a 49-year-old male with no significant past medical history prior to his arrival who presented to [facility] on April 03 for evaluation of right lower extremity pain as well as dyspnea on exertion. In the ED, he was found to have findings concerning for cellulitis, imaging findings concerning for bilateral pleural effusions, hyperglycemia with an A1c of 7.4%, and mild hypertension. Wound and blood cultures were collected, and the patient was started on broad-spectrum antibiotics. He was admitted for further management of his cellulitis as well as acute hypoxemic respiratory failure. Regarding his wounds, wound cultures returned positive for group G beta Streptococcus as well as MSSA, and blood cultures returned positive for group G beta Streptococcus as well. As such, his broad-spectrum antibiotics were narrowed to ceftriaxone; he is scheduled to end these on April 16. Wound care was provided while here, alongside regular checks and laboratory studies. By his time of discharge, the wounds were much improved and patient's initially noted leukocytosis was resolved. Regarding his acute hypoxemic respiratory failure, as well as bilateral pleural effusions, the patient underwent a transthoracic echocardiogram, which did demonstrate a left ventricular ejection fraction of 25 to 30% with severe global hypokinesis. Given these findings, patient was treated for heart failure with reduced ejection fraction. Cardiology was consulted. Patient was aggressively diuresed with Lasix IV. He was also started on Entresto and Toprol. Given his dyslipidemia and somewhat unclear reason for acute on chronic heart failure, patient was started on atorvastatin, and cardiology has plans to follow-up as an oupatient for Lexiscan stress test. Overall, the patient demonstrated excellent response to diuresis, and lost nearly 50 pounds since his admission. His bilateral pleural effusions were thought to be due to the chronicity of his heart failure. Of note, this patient has a high likelihood of readmission to a concern for an inability to maintain dietary compliance in the outpatient setting (such as sodium restriction, taking medications as scheduled). Case management closely assisted throughout his course here. Upon discharge, the plan was to go home with helping to set up Home Health. His discharge medications for management of heart failure are Entresto 24/26mg PO BID, metoprolol succinate 50mg PO daily, Lasix 40mg PO BID. He will also take aspirin 81mg daily and atorvastatin 40mg PO daily for risk reduction. Inder also met criteria for diagnosis of type 2 diabetes mellitus while here, with his A1c returning at 7.4%. While hospitalized, he underwent regular premeal and bedtime blood sugar checks, with sliding scale insulin utilized for correction. He did not require much correction while here. Upon discharge, Inder is to start metformin 500mg daily. He will be set up with [facility] for PCP and plan to follow with [facility] Heart Failure clinic as well. (2) Bilateral pleural effusion: (3) Dyspnea on exertion: (4) Hyperglycemia: (5) Abnormal ECG: (6) Pleural effusion: (7) Acute on chronic systolic (congestive) heart failure: Total Time Total Time Spent Total Time Spent (In Minutes): <30 Discharge Plan Discharge Items Patient Disposition: Home - Self-Care Reason For Visit: LE CELLULITIS, DYSPNEA, PLEURAL EFFUSION Discharge Diagnosis: Cellulitis, bacteremia, CHF, diabetes Activity: Per Instructions section Non-emergency contact: Primary Care Provider Call non-emergency contact if: you have any medication questions and your symptoms worsen Follow-up/Referrals: Cherelle Godfrey PA-C [Physician Welding Specialist] - 04/24/20 10:30 am (Congestive Heart Failure Program Appointment Information Early follow up is essential to managing your heart failure. An appointment has been scheduled for you with the [facility] Heart Failure Program within 7 days of discharge. Anticipate this visit to be 30-60 minutes long. Please expect a passenger interline clerk phone call from one of our nurses approximately 48 hours from discharge. They will also be placing an order for lab work to be completed 1-2 days prior to your heart failure follow up appointment. Please be sure to have this done so we can go over the results when you come in. Office Location The cardiology office building is located in front of the hospital at [address] [facility] [address]. Bring the following with you to your follow-up doctor appointments: Please bring your daily weight log any discharge paperwork all of your medication bottles with you to this visit. ) Ernie Mao MD [Resident] - 04/28/20 8:10 am Diet: Carb Consistent or DM2 and Heart Healthy Addtl Attending Provider Instructions: You were admitted to [facility] due to cellulitis and shortness of breath. You were fo und to have an infection both in your leg wounds as well as your blood stream. With regards to your shortness of breath, you were found to have heart failure on imaging of your heart. This had caused fluid to build up in your body, including around your lungs, causing your difficulty breathing. To treat these conditions, you were given antibiotics in your veins for 14 days. And you were treated with Lasix to help get the excess fluid out of your body. You will have to continue taking various medications that are listed below and follow-up with a Primary Care Provider to manage your medications. This is very important to avoid the symptoms that brought you here initially. For your newly discovered Diabetes, you will be sent home with a new medication called metformin. You will take this daily to avoid high blood sugars. However, the most important thing for diabetes will be following a healthy diet, especially avoiding soda. Avoiding salty foods will also be very helpful in your case because in our bodies, salt causes fluid to build up. In someone with a heart that does not beat too well, like in your case, that built up fluid is too hard to clear out of the body and you end up swelling (like your legs and around your lungs), which makes it hard to walk and breathe. You should also try to avoid regular soda, because it has a high sugar content and most likely causes your diabetes. A good option is to try either Diet or "Zero" sodas, which will not cause your blood sugar to rise. Ideally you should only drink water but this is a good first step. If you follow the above suggestions, and take your new medications as prescribed, you will most likely avoid coming back to the hospital for symptoms similar to the ones that brought you in. You should follow up with your new PCP as well as the Heart Failure Clinic. You will take new medications as outlined below: 1. Aspirin 81 mg: Take 1 pill by mouth every morning 2. Atorvastatin (Lipitor) 40 mg: Take 1 pill by mouth every morning 3. Entresto 24/26 mg: Take 1 pill every morning and 1 pill every night 4. Furosemide (Lasix) 40 mg: Take 1 pill every morning and 1 pill every night 5. Metformin 500 mg: Take 1 pill by mouth every morning 6. Metoprolol 50 mg: Take 1 pill by mouth every morning Addtl Railway Station Manager Provider Instructions: Call your Primary Care doctor if any of the following symptoms or problems start or get worse: * Shortness of breath or difficulty breathing * Wake up at night short of breath * Chest pain * Cough * Swelling of your hands, feet, or legs * More fatigued or tired with your normal activity * Palpitations - sudden fast heart beats WEIGHT * Weigh yourself every morning after using the bathroom. * Use the same scale. * Wear the same amount of clothing. * Write your weight down on a chart. * Call your Primary Care doctor if you gain more than 2-3 pounds in 1-2 days. MEDICATIONS * Use this discharge instruction sheet for medication instructions. * Take your medications at the time your doctor ordered. * Do not skip a dose of your medicines. * If you miss a dose of medicine, take it as soon as possible, but DO NOT DOUBLE A DOSE. * Read your medicine information when you get home. * Know all of the side effects of your medicine. If in doubt, ask your pharmacist * Call your Primary Care doctor's office if you have any side effects. * Be sure all of your doctors know what medicine and herbs you take (including cold, flu, and herbal medicine). Take the following with you to your follow-up doctor appointments: * Weight Chart * Medication List * List of questions Do not drink excessive alcohol, beer or wine. Pending Studies at Discharge: No Stand-Alone Forms: [email or web address], Smoking Cessation Medications and DC Order Prescriptions: New metoprolol succinate 50 mg Tablet Extended Release 24 Hr 50 mg PO QAM 30 Days Qty: 30 RF: 1 Entresto 24-26 mg Tablet 1 tab PO BID 30 Days Qty: 60 RF: 1 atorvastatin 40 mg Tablet 40 mg PO QAM 30 Days Qty: 30 RF: 1 aspirin 81 mg Tablet,Delayed Release (Dr/Ec) 81 mg PO QAM 30 Days Qty: 30 RF: 1 furosemide [Lasix] 40 mg tablet 40 mg PO BID 30 Days Qty: 60 RF: 1 metformin 500 mg tablet 500 mg PO DAILY 30 Days Qty: 30 RF: 1 Continued ibuprofen 200 mg Tablet 200 mg PO Q6H PRN (Reason: Fever Or Pain) RF: 0 Discharge Orders: Discharge Order (Routine); Ordered 04/17/20 Ordered By: Yazan Cui/Other Patient Handouts: Managing Type 2 Diabetes, Exercise to Manage Your Blood Sugar, 5 Steps for Eating Healthier, Understanding Type 2 Diabetes, A1C Admission Data Admit Date/Time: 04/03/20 23:55 Attending Provider: Hubert Neumann Admit Provider: Cynthia Bowen Primary Care Provider: PCP,NO Other Providers: Modesto Valentin ; Pete Akins ; Hubert Neumann ; Massiel Comer ; [facility] ; [facility] Other Interventions: Discharge Summary Assessment (RN) Last Done: 04/17/20 10:58 Supervising Physician Co-Signing Physician Notes I personally examined the patient and verified all richardson points of history and exam, discussed case, and agree with decision making with Dr Lomeli. Feels up to going homenotes that he thought he could have gone home yesterday. Notes that he does not want to come back to the hospital, I tell him quite plainly that the biggest thing he can do to stay out of the hospital is take his medications as directed, drink no soda, and be strict on salt intake. Vitals noted, in general he is awake and alert pleasant no distress. HEENT normocephalic atraumatic mucous membranes are moist. breathing unlabored no acc essory muscles good effort no conversational dyspnea. Right leg ulcer with gram-positive bacteremiacompleted course of IV antibiotics Newly diagnosed systolic CHFcontinue afterload reduction, home on p.o. diuretics, close outpatient follow-up with PCP and CHF clinic. Hopefully he will follow through with low-sodium diet New diagnosis type 2 [id number] is 7.4. Diet change would likely be curative for him. For now Metformin, hopefully he will follow through with lifestyle change. Venous stasisimproved now that he is getting more mobile, continue to encourage mobility, long-term encourage weight loss. Morbid obesity with a BMI now down to 42.2 probably driving most of his comorbidities Pleural effusionoutpatient follow-up. Asymptomatic from this, and it is very likely related to his CHF, thoracentesis was entertained but given that it was not emergent, we decided to hold off for now, certainly depending on his progress it may need to be done for diagnostic purposes even if not for therapeutic. Stable for home otherwise as above Resident Activity Tracking Resident Involvement: Resident Care Provided Care Provided: Adult Hospital Medicine
--- NOTE | 2020-04-17 16:18 | Billing Data ---
Date of Service April 17, 2020 Coding Level of Care Code D/C Day Management <30 mins
== END 2020-04-17 14:51 | disposition home or self-care (01) | DRG 292 ==
LOC: ED 20:48 → 3W 23:55 → SUATTDRO 23:55 → 3W 04-04 00:42

== ENCOUNTER 2023-06-10 19:53 | Inpatient (IN) ==
[2023-06-10 20:41] LABS: Basophils # (auto) 0.04 K/uL (0.00-0.20); Basophils % (auto) 0.4 %; Eosinophils # (auto) 0.09 K/uL (0.00-0.50); Eosinophils % (auto) 0.9 %; Hematocrit (blood only) 42.9 % (42.0-52.0); Hemoglobin 13.2 g/dl (14.0-18.0); Immature Granulocytes # (auto) 0.04 K/uL (0.01-0.20); Immature Granulocytes % (auto) 0.4 %; Lymphocytes # (auto) 2.39 K/uL (1.20-3.40); Lymphocytes % (auto) 22.8 %; Mean Corpuscular Hemoglobin 27.2 pg (25.0-34.0); Mean Corpuscular Hgb Conc 30.8 g/dL (32.0-36.0); Mean Corpuscular Volume 88.5 fL (80.0-100.0); Mean Platelet Volume 13.4 fL (9.4-12.4); Monocytes # (auto) 0.47 K/uL (0.11-0.59); Monocytes % (auto) 4.5 %; Neutrophils # (auto) 7.47 K/uL (1.40-6.50); Platelet Count 195 K/uL (130-400); RDW Coefficient of Variation 14.9 % (11.5-14.5); RDW Standard Deviation 48.1 fL (36.4-46.3); Red Blood Count 4.85 M/uL (4.70-6.10)
[2023-06-10 21:00] LABS: Albumin Level 3.8 gm/dl (3.4-5.0); BUN Creatinine Ratio 12.9 (10-20); Bilirubin,Total 0.4 mg/dl (0.2-1.0); Calcium 8.9 mg/dl (8.6-10.3); Creatinine Clr Calc Pharmacy 93.2 ml/min; Est GFR (African American) 78.1 ml/min; Est GFR (Non-African American) 67.4 ml/min; Globulin 3.9 gm/dl (2.5-4.0); Potassium 3.9 mmol/L (3.5-5.1); Total Protein 7.7 gm/dl (6.0-8.3)
[2023-06-10 21:11] LABS: INR 1.1 (0.9-1.1); Partial Thromboplastin Time 29 Seconds (21-31)
[2023-06-10 21:15] LABS: D Dimer 800 ug/L FEU (0-500)
[2023-06-10 21:18] LABS: Influenza A virus by PCR Negative (Neg); Influenza B virus by PCR Negative (Neg); RSV by PCR Negative (Neg); SARS CoV2 RNA(COVID-19) Ceph NEGATIVE (Negative)
--- NOTE | 2023-06-10 21:19 | Emergency Department Note ---
Impression & Plan ROMANO (dyspnea on exertion), Elevated troponin, Acute exacerbation of CHF (congestive heart failure), Bilateral pleural effusion ED Provider Note HISTORY OF PRESENT ILLNESS: Patient is a 52-year-old male presenting with shortness of breath. Patient reports he has been having progressively worsening shortness of breath over the last 2 to 3 days. Reports significant shortness of breath with any sort of exertion. Reports that he tried to climb a set of stairs this evening and became very winded at the top and lightheaded. Denies any chest pain. Denies any recent cough or fevers. No recent shortness of breath. Denies any DVT or PE history. He is not currently on any anticoagulation. Denies any lower extremity edema. ROS: as above PHYSICAL EXAM: Constitutional: Patient appears in no acute distress. HENT: Head: Normocephalic and atraumatic. Eyes: EOMI, PERRL Mouth/Throat: Mucous membranes moist. Neck: Trachea midline. Neck supple. Cardiovascular: Tachycardic with regular rhythm. No murmurs, rubs or gallops. Intact distal pulses. Pulmonary/Chest: No respiratory distress. Breath sounds clear and equal bilaterally. No wheezes or rales. Abdominal: Abdomen soft, no tenderness, rebound or guarding. Musculoskeletal: No edema, tenderness or deformity noted. Skin: Warm and dry. No rash, erythema, pallor or cyanosis Psychiatric: Appropriate mood and affect for situation. Neurological: Alert and keenly responsive. CN II-XII grossly intact, moving all extremities equally and fully. MDM: - Vitals signs showed hypertension and tachycardia - History obtained via patient. History as above. - Chronic conditions affecting care: HLD; CHF; HTN; DM-2; nonischemic cardiomyopathy - Differential diagnoses include, but are not limited to: Congestive heart failure; acute coronary syndrome; COPD/asthma exacerbation; pulmonary edema; pulmonary embolism; pneumonia; pneumothorax; viral syndrome - Order placed for continuous cardiac monitoring. At this time, monitor showed rate of 115 bpm with normal sinus rhythm, per my interpretation. - External medical records reviewed. Dobutamine stress echo performed on 05/13/2023 was reviewed. It negative for any acute pathology. - EKG interpreted by myself showed normal sinus rhythm. Rate tachycardic at 118 bpm. QT 366. No acute ischemic changes. - Laboratory workup interpreted by myself showed normal WBC; stable electrolytes; elevated troponin (26); elevated BNP (474); elevated dimer (800) - Repeat troponin up to 28.3 - COVID/flu/RSV negative - Patient was given 1L NS in ER for his persistent tachycardia, with minimal improvement in HR. - CXR negative for pneumonia, per my interpretation - CT PE negative for PE, but noted to have moderate right and small left pleural effusions per radiology. - Patient given 40 mg IV lasix. - Patient does report not taking his medications as prescribed. Reports he takes his furosemide "when I feel bloated." - Discussion was had with rn case management about patient's case and need for admission - Hospitalist consulted for admission - [facility] and [facility]. ASSESSMENT AND PLAN: Diagnosis: dyspnea on exertion; CHF exacerbation; bilateral pleural effusions; elevated troponin Plan: admit Past Med/Surg History Medical History (Updated 06/10/23 @ 23:13 by Emma Godoy MD) Dyspnea on exertion ADD (attention deficit disorder) ? pt unsure of reason for taking adderall; says prescibed by psych. History of recent fall With injury to rt foot; says "I was lightheaded and fell" denies losing consciousness Cardio aware- pt did report BP 95/68 and 103/70 day after fall- cardio did d/c Spironolactone and weaning off Lasix Nonischemic cardiomyopathy DM type 2 (diabetes mellitus, type 2) diet controlled Poor historian HLD (hyperlipidemia) HTN (hypertension) Morbid obesity Venous insufficiency CHF (congestive heart failure) Follows with Dr. 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 Verified 04/22/23 15:35 Home Meds Home Medications Medication Instructions Recorded Confirmed aspirin 81 mg tablet,delayed 81 mg PO BID PRN 09/23/21 04/22/23 release atorvastatin 40 mg tablet 80 mg PO QAM 09/23/21 04/22/23 Previous Rx's Medication Instructions Recorded sacubitril 97 mg-valsartan 103 mg 1 tab PO BID #180 tabs 06/10/20 tablet (Entresto) furosemide 20 mg tablet 20 mg PO DAILY #90 tabs 09/23/22 metoprolol succinate 200 mg 100 mg (1/2 x 200 mg) PO QAM #90 10/20/22 tablet,extended release 24 hr tabs Results & Data (ED) Vital Signs Vital Signs - 24 hr 06/10/23 19:54 06/10/23 19:56 06/10/23 20:00 Temperature 37.1 C Temperature Source Oral Pulse Rate 128 H Pulse Rate from SpO2 Sensor Respiratory Rate 18 Respiratory Effort / Characteristics Non-Labored Spontaneous Respiratory Depth Normal Blood Pressure 181/133 H Blood Pressure Mean 149 Pulse Oximetry 97 96 97 Oxygen Delivery Method Room Air Room Air Room Air Sepsis Recent Fever Within 48 Hours No Sepsis New/Unexplained Change in Mental Status No Sepsis Action Taken by Nursing No Action Required 06/10/23 21:19 06/10/23 21:19 06/10/23 21:20 Temperature Temperature Source Pulse Rate 111 H 112 H 112 H Pulse Rate from SpO2 Sensor 111 H 113 H Respiratory Rate 21 22 Respiratory Effort / Characteristics Respiratory Depth Blood Pressure Blood Pressure Mean Pulse Oximetry 98 97 Oxygen Delivery Method Sepsis Recent Fever Within 48 Hours Sepsis New/Unexplained Change in Mental Status Sepsis Action Taken by Nursing 06/10/23 21:20 06/10/23 21:34 06/10/23 21:40 Temperature Temperature Source Pulse Rate 119 H 109 H Pulse Rate from SpO2 Sensor 118 H 109 H Respiratory Rate 18 22 Respiratory Effort / Characteristics Respiratory Depth Blood Pressure 177/125 H Blood Pressure Mean 146 Pulse Oximetry 96 98 Oxygen Delivery Method Sepsis Recent Fever Within 48 Hours Sepsis New/Unexplained Change in Mental Status Sepsis Action Taken by Nursing 06/10/23 21:50 Temperature Temperature Source Pulse Rate 115 H Pulse Rate from SpO2 Sensor 110 H Respiratory Rate 17 Respiratory Effort / Characteristics Respiratory Depth Blood Pressure Blood Pressure Mean Pulse Oximetry 97 Oxygen Delivery Method Sepsis Recent Fever Within 48 Hours Sepsis New/Unexplained Change in Mental Status Sepsis Action Taken by Nursing Laboratory Data 06/10/23 20:23 06/10/23 20:23 Lab Results 06/10/23 06/10/23 Range/Units 20:23 22:21 WBC 10.50 (4.8-10.8) K/ul RBC 4.85 (4.70-6.10) M/uL Hgb 13.2 L (14.0-18.0) g/dl Hct 42.9 (42.0-52.0) % MCV 88.5 (80.0-100.0) fL MCH 27.2 (25.0-34.0) pg MCHC 30.8 L (32.0-36.0) g/dL RDW Std Deviation 48.1 H (36.4-46.3) fL RDW Coeff of Rupinder 14.9 H (11.5-14.5) % Plt Count 195 (130-400) K/uL MPV 13.4 H (9.4-12.4) fL Immature Gran % (Auto) 0.4 % Neut % (Auto) 71.0 % Lymph % (Auto) 22.8 % [place] % (Auto) 4.5 % Eos % (Auto) 0.9 % Baso % (Auto) 0.4 % Neut # (Auto) 7.47 H (1.40-6.50) K/uL Lymph # (Auto) 2.39 (1.20-3.40) K/uL [place] # (Auto) 0.47 (0.11-0.59) K/uL Eos # (Auto) 0.09 (0.00-0.50) K/uL Baso # (Auto) 0.04 (0.00-0.20) K/uL Immature Gran # (Auto) 0.04 (0.01-0.20) K/uL PT 12.0 (9.0-12.0) Seconds INR 1.1 (0.9-1.1) APTT 29 (21-31) Seconds PTT Ratio 1.0 D-Dimer 800 H* (0-500) ug/L FEU Sodium 140 (136-145) mmol/L Potassium 3.9 (3.5-5.1) mmol/L Chloride 105 (98-107) mmol/L Carbon Dioxide 24 (21-32) mmol/L Anion Gap 11 (3-11) BUN 16 (6-23) mg/dl Creatinine 1.24 (0.6-1.4) mg/dl Est Cr Clr Drug Dosing 93.2 ml/min Est GFR ( Amer) 78.1 ml/min Est GFR (Non-Af Amer) 67.4 ml/min BUN/Creatinine Ratio 12.9 (10-20) Glucose 261 H (70-99(Fasting)) mg/dl Calcium 8.9 (8.6-10.3) mg/dl Magnesium 2.0 (1.7-2.4) mg/dl Total Bilirubin 0.4 (0.2-1.0) mg/dl AST 24 (13-39) U/L ALT 29 (7-52) U/L Alkaline Phosphatase 76 (34-104) U/L Troponin I High Sens 26.0 H 28.3 H (0-20) pg/ml B-Natriuretic Peptide 474 H (0-100) pg/ml Total Protein 7.7 (6.0-8.3) gm/dl Albumin 3.8 (3.4-5.0) gm/dl Globulin 3.9 (2.5-4.0) gm/dl Albumin/Globulin Ratio 1.0 (0.9-2) SARS-CoV-2 (PCR) NEGATIVE (Negative) Influenza Type A (PCR) Negative (Neg) Influenza Type B (PCR) Negative (Neg) RSV (RT-PCR) Negative (Neg) Administered Medications Discontinued Medications Furosemide (Furosemide 40 Mg/4 Ml Vial) 40 mg IV ONE ONE Stop: 06/10/23 22:39 Last Admin: 06/10/23 22:50 Dose: 40 mg Documented By: ACC Sodium Chloride (Nss) 1,000 mls @ 999 mls/hr IV .Q1H1M ONE Stop: 06/10/23 22:18 Last Infusion: 06/10/23 22:55 Dose: Infused Documented By: Admin: 06/10/23 21:48 Dose: 999 mls/hr Documented By: ACC Ioversol (Optiray 320 125ml) 97 ml IV ONCE ONE Stop: 06/10/23 21:31 Last Admin: 06/10/23 21:30 Dose: 97 ml Documented By: PLW Imaging Data Radiologist's Impression: Chest CTA 06/10/23 21:18 Exam(s): CTA CHEST EXAM: CT Angiography Chest With Intravenous Contrast CLINICAL HISTORY: Reason for exam: PE. TECHNIQUE: Axial computed tomographic angiography images of the chest with intravenous contrast. CTDI is 28.14 mGy and DLP is 915.85 mGy-cm. Automated exposure control was utilized for the study. A dose lowering technique was utilized adhering to the principles of ALARA. MIP reconstructed images were created and reviewed. COMPARISON: No relevant prior studies available. FINDINGS: Pulmonary arteries: Unremarkable. No acute pulmonary embolism. Aorta: No acute findings. No thoracic aortic aneurysm. Great vessels of aortic arch: Aberrant RIGHT subclavian artery. Lungs: Unremarkable. No mass. No consolidation. Pleural space: Moderate RIGHT and small LEFT pleural effusions. No pneumothorax. Heart: Cardiomegaly. No significant pericardial effusion. No evidence of RV dysfunction. Bones/joints: No acute fracture. No dislocation. Soft tissues: Unremarkable. Lymph nodes: Unremarkable. No enlarged lymph nodes. Liver: Hepatic steatosis. IMPRESSION: 1. No acute pulmonary embolism. 2. Moderate RIGHT and small LEFT pleural effusions. Electronically signed by: Power Alston MD 06/10/23 22:00 PM Discharge Plan Visit Data Chief Complaint: Shortness of Breath/Dyspnea Stated Complaint: SOB ED Provider: Emma Godoy Discharge Problem: ROMANO (dyspnea on exertion), Elevated troponin, Acute exacerbation of CHF (congestive heart failure), Bilateral pleural effusion Forms Stand Alone Forms: My [facility] [place] Prescriptions Prescriptions: No Action furosemide 20 mg tablet 20 mg PO DAILY Qty: 90 3RF metoprolol succinate 200 mg tablet extended release 24 hr 100 mg PO QAM Qty: 90 3RF Entresto 97-103 mg tablet 1 tab PO BID Qty: 180 3RF aspirin 81 mg tablet,delayed release (DR/EC) 81 mg PO BID PRN atorvastatin 40 mg tablet 80 mg PO QAM Referrals Referrals: PCP,NO [Primary Care Provider] -
[2023-06-10] MEDS: OPTIRAY 320 125ml IV ONE (21:30)
[2023-06-10] MEDS: SODIUM CHLORIDE 0.9% 1,000 ML IV ONE (21:48)
--- NOTE | 2023-06-10 22:01 | CT Scan Report ---
Exam(s): CTA CHEST EXAM: CT Angiography Chest With Intravenous Contrast CLINICAL HISTORY: Reason for exam: PE. TECHNIQUE: Axial computed tomographic angiography images of the chest with intravenous contrast. CTDI is 28.14 mGy and DLP is 915.85 mGy-cm. Automated exposure control was utilized for the study. A dose lowering technique was utilized adhering to the principles of ALARA. MIP reconstructed images were created and reviewed. COMPARISON: No relevant prior studies available. FINDINGS: Pulmonary arteries: Unremarkable. No acute pulmonary embolism. Aorta: No acute findings. No thoracic aortic aneurysm. Great vessels of aortic arch: Aberrant RIGHT subclavian artery. Lungs: Unremarkable. No mass. No consolidation. Pleural space: Moderate RIGHT and small LEFT pleural effusions. No pneumothorax. Heart: Cardiomegaly. No significant pericardial effusion. No evidence of RV dysfunction. Bones/joints: No acute fracture. No dislocation. Soft tissues: Unremarkable. Lymph nodes: Unremarkable. No enlarged lymph nodes. Liver: Hepatic steatosis. IMPRESSION: 1. No acute pulmonary embolism. 2. Moderate RIGHT and small LEFT pleural effusions. Electronically signed by: Power Alston MD 06/10/23 22:00 PM
[2023-06-10] MEDS: FUROSEMIDE 40 MG/4 ML VIAL IV ONE (22:50)
--- NOTE | 2023-06-10 23:57 | History & Physical Report ---
Date of Service June 10, 2023 Assessment & Plan (1) Bilateral pleural effusion: Plan: 52yo male presenting with ROMANO found to have bilateral pleural effusions, R>L. Adequate oxygenation presently on room air. Was briefly on supplemental O2. 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 EF of 45-50% per echo in March 2022. Patient was recently ill with mild URI symptoms two weeks ago. Suspect acute exacerbation of CHF -Admit to medical -Diurese with Lasix 40mg IV BID -Monitor I/O, daily weights -Repeat CXR PA and lateral in AM -Check 2D echo -If persistent despite diuresis may need to perform thoracentesis -Patient was previously on several medications for his heart but currently does not take anything on a regular basis. Per review of outpatient Cardiology records he was on Entresto, Metoprolol and daily Lasix (2) Elevated troponin: Plan: Suspect elevated troponin secondary to acute CHF exacerbation -Trend troponin -Check 2D echo -Patient was previously on ASA, Atorvastatin, Metoprolol daily - now does not take these medications. Will resume ASA (3) DM type 2 (diabetes mellitus, type 2): Plan: Diet controlled. -Lantus 10u BID with ISS -ISS -Goal blood sugar 110 - 140 (4) HTN (hypertension): Plan: No daily medications. Was previously on Entresto, Metoprolol and daily Lasix for BP and CHF -Diuresis -Monitor BP -Future medication recommendations pending results of echo (5) HLD (hyperlipidemia): Plan: No daily medications. 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 He reports having some ROMANO and decreased exercise tolerance over the last couple of days. Tonight he climbed up the steps and became very short of breath. He denies chest pain or palpitations, no edema, orthopnea. Patient does not monitor his weight. He is largely non-compliant with his medications. He does not take his Lasix daily. He has been taking 1 - 2 lasix tabs over the last two days and reports increased UOP. No additional complaints at this time. In the ER he is afebrile, hypertensive and tachycardic. Did have some mild hypoxia reported by nursing - placed on supplemental O2. Recent dobutamine stress test performed on 05/13/23 which was negative for inducible ischemia. Allergies Allergy/AdvReac Type Severity Reaction Status Date / Time No Known Drug Allergies Allergy . Verified 06/11/23 01:09 Home Medications Medication Instructions Recorded Confirmed Type aspirin 81 mg tablet,delayed 81 mg PO BID PRN Pain 06/11/23 06/11/23 History release furosemide 20 mg tablet 20 mg PO DAILY 06/11/23 06/11/23 History Past Med/Surg History Medical History (Updated 06/11/23 @ 03:41 by Zaira Devi DO) Dyspnea on exertion ADD (attention deficit disorder) ? pt unsure of reason for taking adderall; says prescibed by psych. History of recent fall With injury to rt foot; says "I was lightheaded and fell" denies losing consciousness Cardio aware- pt did report BP 95/68 and 103/70 day after fall- cardio did d/c Spironolactone and weaning off Lasix Nonischemic cardiomyopathy DM type 2 (diabetes mellitus, type 2) diet controlled Poor historian HLD (hyperlipidemia) HTN (hypertension) Morbid obesity Venous insufficiency CHF (congestive heart failure) Follows with Dr. Nelson Cloud on chronic systolic (congestive) heart failure Pleural effusion evidence of pleural effusions during hospitalization @ [facility] 03/2020 Hyperglycemia Bilateral pleural effusion Surgical History History of tooth extraction Family History Other No family history of adverse response to anesthesia Social History Smoking Status: Never smoker Second Hand Exposure: No; Do You Dip or Chew Tobacco: No; Hx Alcohol Use: No Hx Substance Use: No Preferred Language: Yoruba Communication Ability: Effective Natural Gas Trader Required: No Beliefs That Will Affect Care: None Current Living Situation: Parent Current Living Situation Comment: Afshan (mother) Other Information That Helps Us Care for You: No Feels Safe at Home: Yes Safety Concerns: Feels Safe At This Time Assistive Devices: None Review of Systems Review of Systems: All systems reviewed & are unremarkable except as noted in HPI & below Physical Exam Physical Exam: General: patient resting comfortably, NAD, non-toxic in appearance, AA&O x 4 Skin: warm, dry, intact, no rashes or lesions HEENT: NC/AT, PERRL, EOMI, anicteric sclera, conjunctiva without injection, external ear normal to inspection and nontender, nares patent, moist mucus membranes, dentition intact, no oropharyngeal lesions, neck supple, trachea midline, no LAD, no thyromegaly, no JVD Heart: +S1/S2, regular, no m/r/g Lungs: equal air entry bilaterally, no rales/rhonchi/wheezes, diminished breath sounds in bilateral bases Abd: +BS, soft, NT/ND, no masses/organomegaly/ascites Ext: warm, 2+ pulses in UE/LE bilaterally, no clubbing/cyanosis or edema Neuro: nonfocal, patient AA&O x 4, speech intact, no facial droop, moving all extremities on command with equal strength 5/5 Results & Data Results & Data Vital Signs (Past 12 Hours) Vital Signs Temp Pulse Resp BP Pulse Ox O2 Del Method 06/10/23 21:50 115 H 17 97 06/10/23 21:40 109 H 22 98 06/10/23 21:34 119 H 18 96 06/10/23 21:20 177/125 H 06/10/23 21:20 112 H 22 97 06/10/23 21:19 112 H 21 98 06/10/23 21:19 111 H 06/10/23 20:00 97 Room Air 06/10/23 19:56 37.1 C 128 H 18 181/133 H 96 Room Air 06/10/23 19:54 97 Room Air Laboratory Results Laboratory Results WBC 10.35 K/ul (4.8-10.8) 06/11/23 01:53 RBC 4.60 M/uL (4.70-6.10) L 06/11/23 01:53 Hgb 12.6 g/dl (14.0-18.0) L 06/11/23 01:53 Hct 39.6 % (42.0-52.0) L 06/11/23 01:53 MCV 86.1 fL (80.0-100.0) 06/11/23 01:53 MCH 27.4 pg (25.0-34.0) 06/11/23 01:53 MCHC 31.8 g/dL (32.0-36.0) L 06/11/23 01:53 RDW Std Deviation 46.5 fL (36.4-46.3) H 06/11/23 01:53 RDW Coeff of Rupinder 14.8 % (11.5-14.5) H 06/11/23 01:53 Plt Count 211 K/uL (130-400) 06/11/23 01:53 MPV 12.9 fL (9.4-12.4) H 06/11/23 01:53 Immature Gran % (Auto) 0.4 % 06/10/23 20: Neut % (Auto) 71.0 % 06/10/23 20:23 Lymph % (Auto) 22.8 % 06/10/23 20: [place] % (Auto) 4.5 % 06/10/23 20:23 Eos % (Auto) 0.9 % 06/10/23 20: Baso % (Auto) 0.4 % 06/10/23 20:23 Neut # (Auto) 7.47 K/uL (1.40-6.50) H 06/10/23 20:23 Lymph # (Auto) 2.39 K/uL (1.20-3.40) 06/10/23 20:23 [place] # (Auto) 0.47 K/uL (0.11-0.59) 06/10/23 20: Eos # (Auto) 0.09 K/uL (0.00-0.50) 06/10/23 20: Baso # (Auto) 0.04 K/uL (0.00-0.20) 06/10/23 20: Immature Gran # (Auto) 0.04 K/uL (0.01-0.20) 06/10/23 20: PT 12.0 Seconds (9.0-12.0) 06/10/23 20:23 INR 1.1 (0.9-1.1) 06/10/23 20:23 APTT 29 Seconds (21-31) 06/10/23 20: PTT Ratio 1.0 06/10/23 20: D-Dimer 800 ug/L FEU (0-500) H* 06/10/23 20:23 Sodium 139 mmol/L (136-145) 06/11/23 01:53 Potassium 3.8 mmol/L (3.5-5.1) 06/11/23 01:53 Chloride 108 mmol/L (98-107) H 06/11/23 01:53 Carbon Dioxide 22 mmol/L (21-32) 06/11/23 01:53 Anion Gap 9 (3-11) 06/11/23 01:53 BUN 14 mg/dl (6-23) 06/11/23 01:53 Creatinine 1.14 mg/dl (0.6-1.4) 06/11/23 01:53 Est Cr Clr Drug Dosing 100.6 ml/min 06/11/23 01:53 Est GFR ( Amer) 86.4 ml/min 06/11/23 01:53 Est GFR (Non-Af Amer) 74.6 ml/min 06/11/23 01:53 BUN/Creatinine Ratio 12.3 (10-20) 06/11/23 01:53 Glucose 153 mg/dl (70-99(Fasting)) H 06/11/23 01:53 POC Glucose 148 mg/dl (70-99) H 06/11/23 02:00 Calcium 8.4 mg/dl (8.6-10.3) L 06/11/23 01:53 Magnesium 2.0 mg/dl (1.7-2.4) 06/10/23 20:23 Total Bilirubin 0.4 mg/dl (0.2-1.0) 06/10/23 20:23 AST 24 U/L (13-39) 06/10/23 20:23 ALT 29 U/L (7-52) 06/10/23 20:23 Alkaline Phosphatase 76 U/L (34-104) 06/10/23 20:23 Troponin I High Sens 36.1 pg/ml (0-20) H 06/11/23 01:53 B-Natriuretic Peptide 474 pg/ml (0-100) H 06/10/23 20:23 Total Protein 7.7 gm/dl (6.0-8.3) 06/10/23 20:23 Albumin 3.8 gm/dl (3.4-5.0) 06/10/23 20:23 Globulin 3.9 gm/dl (2.5-4.0) 06/10/23 20:23 Albumin/Globulin Ratio 1.0 (0.9-2) 06/10/23 20:23 SARS-CoV-2 (PCR) NEGATIVE (Negative) 06/10/23 20:23 Influenza Type A (PCR) Negative (Neg) 06/10/23 20:23 Influenza Type B (PCR) Negative (Neg) 06/10/23 20:23 RSV (RT-PCR) Negative (Neg) 06/10/23 20:23 Impressions Chest CTA 06/10/23 21:18 Exam(s): CTA CHEST EXAM: CT Angiography Chest With Intravenous Contrast CLINICAL HISTORY: Reason for exam: PE. TECHNIQUE: Axial computed tomographic angiography images of the chest with intravenous contrast. CTDI is 28.14 mGy and DLP is 915.85 mGy-cm. Automated exposure control was utilized for the study. A dose lowering technique was utilized adhering to the principles of ALARA. MIP reconstructed images were created and reviewed. COMPARISON: No relevant prior studies available. FINDINGS: Pulmonary arteries: Unremarkable. No acute pulmonary embolism. Aorta: No acute findings. No thoracic aortic aneurysm. Great vessels of aortic arch: Aberrant RIGHT subclavian artery. Lungs: Unremarkable. No mass. No consolidation. Pleural space: Moderate RIGHT and small LEFT pleural effusions. No pneumothorax. Heart: Cardiomegaly. No significant pericardial effusion. No evidence of RV dysfunction. Bones/joints: No acute fracture. No dislocation. Soft tissues: Unremarkable. Lymph nodes: Unremarkable. No enlarged lymph nodes. Liver: Hepatic steatosis. IMPRESSION: 1. No acute pulmonary embolism. 2. Moderate RIGHT and small LEFT pleural effusions. Electronically signed by: Power Alston MD 06/10/23 22:00 PM ECG Additional Comments: EKG with ST at 118bpm, left axis deviation, CH=340, RQZ=630, UIl=755, no acute ischemic changes PG Care Time/CCT Total # of Minutes Spent Total Time Spent with Patient: Total time spent is greater than 50% in coordination of care (as documented) at patient's floor/unit and/or counseling patient: Coding Level of Care Code 18814 INT INP/OBS CARE 3/75MIN Diagnoses Bilateral pleural effusion J90 Elevated troponin R79.89 DM type 2 (diabetes mellitus, type 2) E11.9 HTN (hypertension) I10 HLD (hyperlipidemia) E78.5
[2023-06-11] MEDS ORDERED: DEXTROSE 50% 50 ML SYRINGE IV PRN (01:32)
[2023-06-11] MEDS ORDERED: GLUCOSE 10 TAB/TUBE PO PRN (01:32)
[2023-06-11] MEDS ORDERED: CARBOHYDRATES FOR HYPOGLYCEMIA PO PRN (01:32)
[2023-06-11] MEDS ORDERED: ONDANSETRON INJ 2 MG/ML 2 ML VIAL IV PRN (01:32)
[2023-06-11] MEDS ORDERED: GLUCAGON FOR INJ 1 MG VIAL SQ PRN (01:32)
[2023-06-11] MEDS ORDERED: GLUCOSE 40% GEL 15 GM TUBE PO PRN (01:32)
[2023-06-11 02:06] LABS: Hematocrit (blood only) 39.6 % (42.0-52.0); Hemoglobin 12.6 g/dl (14.0-18.0); Mean Corpuscular Hemoglobin 27.4 pg (25.0-34.0); Mean Corpuscular Hgb Conc 31.8 g/dL (32.0-36.0); Mean Corpuscular Volume 86.1 fL (80.0-100.0); Mean Platelet Volume 12.9 fL (9.4-12.4); Platelet Count 211 K/uL (130-400); RDW Coefficient of Variation 14.8 % (11.5-14.5); RDW Standard Deviation 46.5 fL (36.4-46.3); White Blood Count 10.35 K/ul (4.8-10.8)
[2023-06-11] MEDS: INSULIN ASPART PER UNIT CHARGE SC SCH (02:08)
[2023-06-11] MEDS: LANTUS PER UNIT CHARGE SQ SCH (02:09)
[2023-06-11 02:25] LABS: BUN Creatinine Ratio 12.3 (10-20); Calcium 8.4 mg/dl (8.6-10.3); Creatinine Clr Calc Pharmacy 100.6 ml/min; Est GFR (African American) 86.4 ml/min; Est GFR (Non-African American) 74.6 ml/min; Potassium 3.8 mmol/L (3.5-5.1)
--- NOTE | 2023-06-11 07:50 | XRay Report ---
XR chest 1V not portable HISTORY: 52 years-old Male Chest pain, nonspecific COMPARISON: CTA chest of same day TECHNIQUE: PA view of the chest FINDINGS: Cardiac silhouette is enlarged. Small degenerative changes of the shoulders and spine. Moderate pleur al effusions with mild bibasilar opacities. Pulmonary vascular congestion. No acute fracture. No pneu mothorax. IMPRESSION: 1. Cardiomegaly with pulmonary vascular congestion. 2. Small to moderate pleural effusions with mild bibasilar atelectasis. ACT 112: Negative or not required by law. The above report was generated using voice recognition software. It may contain grammatical, syntax o r spelling errors. Electronically signed by: Cyrus Genao M.D. 06/11/2023 7:49 AM
[2023-06-11] MEDS: ASPIRIN 81 MG ECTAB PO SCH (07:51)
[2023-06-11] MEDS: FUROSEMIDE 40 MG/4 ML VIAL IV SCH (07:57)
--- NOTE | 2023-06-11 09:15 | XRay Report ---
XR chest 2V PA/lateral HISTORY: 52 years-old Male shortness of breath acute shortness of breath COMPARISON: CTA chest of same day TECHNIQUE: PA and lateral views of the chest FINDINGS: Cardiac silhouette is enlarged. Pulmonary vascular congestion with interstitial coarsening. Layering pleural effusions with bibasilar consolidation again noted. No pneumothorax. Bones appear grossly int act. IMPRESSION: 1. Cardiomegaly with mild pulmonary edema. 2. Layering pleural effusions with bibasilar consolidation favoring atelectasis. ACT 112: Negative or not required by law. The above report was generated using voice recognition software. It may contain grammatical, syntax o r spelling errors. Electronically signed by: Cyrus Genao M.D. 06/11/2023 9:13 AM
[2023-06-11] MEDS: FUROSEMIDE 40 MG/4 ML VIAL IV ONE (09:27)
--- NOTE | 2023-06-11 12:12 | Electrocardiogram Report ---
Test Reason : Blood Pressure : / mmHG Vent. Rate : 118 BPM Atrial Rate : 118 BPM P-R Int : 140 ms QRS Dur : 138 ms QT Int : 366 ms P-R-T Axes : 076 -43 107 degrees QTc Int : 513 ms Sinus tachycardia with occasional Premature ventricular complexes Left axis deviation Left ventricular hypertrophy with QRS widening and repolarization abnormality ( R in aVL ) Poor R wave progression, consider anterior RI vs. lead placement vs. LVH Abnormal ECG When compared with ECG of 04-DEC-2020 12:37, Significant changes have occurred Confirmed by Ranjeet Damon ([id number]) on 06/11/2023 12:12:43 PM Referred By: REFERRED SELF Confirmed By:Ranjeet Damon
--- NOTE | 2023-06-11 12:30 | Hospitalist Progress Note ---
Date of Service June 11, 2023 Assessment & Plan (1) Bilateral pleural effusion: Plan: 52yo male presenting with ROMNAO found to have bilateral pleural effusions, R>L. Adequate oxygenation presently on room air. Was briefly on supplemental O2. 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 EF of 45-50% per echo in March 2022. Patient was recently ill with mild URI symptoms two weeks ago. Suspect acute exacerbation of CHF , acute on chronic systolic -Admit to medical -Diurese with Lasix 40mg IV BID -Monitor I/O, daily weights -Repeat CXR PA and lateral in AM -Check 2D echo start Entresto, Coreg (2) Elevated troponin: Plan: Suspect elevated troponin secondary to acute CHF exacerbation -Trend troponin -Check 2D echo -Patient was previously on ASA, Atorvastatin, Metoprolol daily - now does not take these medications. Will resume ASA (3) DM type 2 (diabetes mellitus, type 2): Plan: Diet controlled. -Lantus 10u BID with ISS -ISS -Goal blood sugar 110 - 140 (4) HTN (hypertension): Plan: No daily medications. Was previously on Entresto, Metoprolol and daily Lasix for BP and CHF -Diuresis -Monitor BP -Future medication recommendations pending results of echo (5) HLD (hyperlipidemia): Plan: No daily medications. Was previously on Atorvastatin (6) SOHA (obstructive sleep apnea): Plan: untreated recommended continue using CPAP, patient was not able to afford CPAP in the past Admission and Anticipated Discharge Date Admission Date: June 10, 2023 Subjective reports feeling better, less SOB Review of Systems Review of Systems: All systems reviewed & are unremarkable except as noted in HPI & below Physical Exam Physical Exam: head atraumatic neck supple chest decreased breath sounds at bases heart S1S2 regular abdomen obese, NT, ND, BS present extremities no edema neuro AAO times 3 Results & Data Results & Data Vital Signs (Past 12 Hours) Vital Signs Temp Pulse Pulse Resp BP Pulse Ox O2 Del Method 06/11/23 11:13 37.2 C 103 H 19 156/98 H 96 Room Air 06/11/23 08:38 94 H 06/11/23 08:14 36.9 C 102 H 19 153/105 H 97 Room Air 06/11/23 08:00 Room Air 06/11/23 01:32 Room Air 06/11/23 01:32 36.9 C 118 H 18 152/86 H 95 Room Air PG Care Time/CCT Total # of Minutes Spent Total Time Spent with Patient: Total time spent is greater than 50% in coordination of care (as documented) at patient's floor/unit and/or counseling patient: Coding Level of Care Code 35181 SUB INP/OBS CARE 2/35MIN Diagnoses Bilateral pleural effusion J90 Elevated troponin R79.89 DM type 2 (diabetes mellitus, type 2) E11.9 HTN (hypertension) I10 HLD (hyperlipidemia) E78.5 SOHA (obstructive sleep apnea) G47.33
--- NOTE | 2023-06-11 13:09 | XCELERA ---
[id number]
[2023-06-11] MEDS: VALSARTAN/SACUBITRIL 26/24MG TAB PO SCH (13:19)
[2023-06-11] MEDS: carvediloL 3.125 MG TAB PO SCH (18:09)
[2023-06-11] MEDS: ACETAMINOPHEN 325 MG TAB PO PRN (22:39)
[2023-06-12 08:17] LABS: Basophils # (auto) 0.04 K/uL (0.00-0.20); Basophils % (auto) 0.5 %; Eosinophils % (auto) 2.3 %; Hematocrit (blood only) 41.1 % (42.0-52.0); Hemoglobin 13.1 g/dl (14.0-18.0); Immature Granulocytes # (auto) 0.03 K/uL (0.01-0.20); Immature Granulocytes % (auto) 0.3 %; Lymphocytes # (auto) 2.53 K/uL (1.20-3.40); Mean Corpuscular Hemoglobin 27.2 pg (25.0-34.0); Mean Corpuscular Hgb Conc 31.9 g/dL (32.0-36.0); Mean Corpuscular Volume 85.4 fL (80.0-100.0); Mean Platelet Volume 12.8 fL (9.4-12.4); Neutrophils # (auto) 5.23 K/uL (1.40-6.50); Neutrophils % (auto) 59.9 %; Platelet Count 208 K/uL (130-400); RDW Coefficient of Variation 14.9 % (11.5-14.5); RDW Standard Deviation 46.5 fL (36.4-46.3); Red Blood Count 4.81 M/uL (4.70-6.10); White Blood Count 8.73 K/ul (4.8-10.8)
[2023-06-12 08:33] LABS: Calcium 8.3 mg/dl (8.6-10.3); Est GFR (African American) 101.3 ml/min; Est GFR (Non-African American) 87.4 ml/min; Potassium 3.7 mmol/L (3.5-5.1)
[2023-06-12] MEDS: PNEUMOCOCCAL VACCINE (PCV20) 20-VAL CONJ-DIP CRM/PF 0.5 ML SYR IM ONE (10:10)
--- NOTE | 2023-06-12 11:20 | Discharge Summary ---
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 He reports having some ROMANO and decreased exercise tolerance over the last couple of days. Tonight he climbed up the steps and became very short of breath. He denies chest pain or palpitations, no edema, orthopnea. Patient does not monitor his weight. He is largely non-compliant with his medications. He does not take his Lasix daily. He has been taking 1 - 2 lasix tabs over the last two days and reports increased UOP. No additional complaints at this time. In the ER he is afebrile, hypertensive and tachycardic. Did have some mild hypoxia reported by nursing - placed on supplemental O2. Recent dobutamine stress test performed on 05/13/23 which was negative for inducible ischemia. Principal Diagnosis congestive heart failure Discharge Exam head atraumatic neck supple chest decreased breath sounds at bases heart S1S2 regular abdomen obese, NT, ND, BS present extremities no edema neuro AAO times 3 Discharge Data Allergies Allergy/AdvReac Type Severity Reaction Status Date / Time No Known Drug Allergies Allergy . Verified 06/11/23 01:09 Consultations 06/10/23 23:13 ED Decision to Admit Stat 06/12/23 09:08 Consult Cardiology Routine Ordered Studies 06/10/23 21:18 CT for pulmonary embolism PE [CT angio chest PE protocol] Stat Hospital Course (1) Bilateral pleural effusion: 52yo male presenting with ROMANO found to have bilateral pleural effusions, R>L. Adequate oxygenation presently on room air. Was briefly on supplemental O2. 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 EF of 45-50% per echo in March 2022. Patient was recently ill with mild URI symptoms two weeks ago. Suspect acute exacerbation of CHF , acute on chronic systolic -Admit to medical -Diurese with Lasix 40mg IV BID -Monitor I/O, daily weights -Repeat CXR PA and lateral in AM - 2D echo EF 30 % started Entresto, Coreg , continue Lasix 40 mg po stable for discharge (2) Elevated troponin: Suspect elevated troponin secondary to acute CHF exacerbation -Trend troponin -Check 2D echo -Patient was previously on ASA, Atorvastatin, Metoprolol daily - now does not take these medications. Will resume ASA (3) DM type 2 (diabetes mellitus, type 2): Diet controlled. -Lantus 10u BID with ISS -ISS -Goal blood sugar 110 - 140 transition to Metformin 500 mg bid (4) HTN (hypertension): No daily medications. Was previously on Entresto, Metoprolol and daily Lasix for BP and CHF -Diuresis -Monitor BP -Future medication recommendations pending results of echo (5) HLD (hyperlipidemia): No daily medications. Was previously on Atorvastatin (6) SOHA (obstructive sleep apnea): untreated recommended continue using CPAP, patient was not able to afford CPAP in the past Total Time Total Time Spent Total Time Spent (In Minutes): 45 min Discharge Plan Discharge Items Patient Disposition: Home - Self-Care Reason For Visit: ROMANO Discharge Diagnosis: congestive heart failure Activity: Resume your previous activity Non-emergency contact: Primary Care Provider Call non-emergency contact if: your symptoms worsen Follow-up/Referrals: PCP,NO [Primary Care Provider] - Diet: Carb Consistent or DM2 and Heart Healthy Addtl Attending Provider Instructions: follow up with [facility] Pending Studies at Discharge: No Stand-Alone Forms: [facility] [employer], Smoking Cessation Medications and DC Order Prescriptions: New furosemide 40 mg Tablet 40 mg PO QAM Qty: 30 0RF metformin 500 mg Tablet 500 mg PO BIDM Qty: 60 0RF carvedilol 3.125 mg Tablet 3.125 mg PO BIDM Qty: 60 0RF cephalexin 500 mg Capsule 500 mg PO QID Qty: 20 0RF Entresto 24-26 mg Tablet 1 tab PO BID Qty: 60 0RF Discontinued aspirin [Aspir-Low] 81 mg Tablet,Delayed Release (Dr/Ec) 81 mg PO BID PRN (Reason: Pain) furosemide 20 mg tablet 20 mg PO DAILY Discharge Orders: Discharge Order (Routine); Ordered 06/12/23 Ordered By: Kayla Bauer Admission Data Admit Date/Time: 06/10/23 23:56 Attending Provider: Kayla Bauer Admit Provider: Zaira Devi Primary Care Provider: PCP,NO Other Providers: Zaira Devi; Ranjeet Damon Coding Level of Care Code 45303 INP/OBS DISCH >30 MIN Diagnoses Bilateral pleural effusion J90 Elevated troponin R79.89 DM type 2 (diabetes mellitus, type 2) E11.9 HTN (hypertension) I10 HLD (hyperlipidemia) E78.5 SOHA (obstructive sleep apnea) G47.33
[2023-06-12] MEDS ORDERED: cephALEXin 500 MG CAP PO SCH (13:00)
--- NOTE | 2023-06-12 15:01 | Cardiology Consultation ---
Date of Consultation June 12, 2023 Assessment & Plan (1) Acute exacerbation of CHF (congestive heart failure): (2) ROMANO (dyspnea on exertion): (3) Cardiomyopathy: Plan 1. Acute decompensated systolic heart failure: He is known to have an element of LV dysfunction. Prior echocardiography revealed an ejection fraction in the range of 45%. However, the patient stopped many of his medications due to perceived side effects. He presented with pulmonary vascular congestion and pleural effusion. His symptoms seem to have improved with an element of diuresis. Today he seemed to be feeling quite well as quite active around the [place]. I do not think there is approximate cause for his decompensation other medical noncompliance, limiting his diuretic and high sodium diet. 2. Cardiomyopathy: Perfusion imaging done previously did not suggest an ischemic etiology. He does not describe symptoms consistent with ischemic heart disease. He underwent dobutamine echocardiography in the past few months was did not demonstrate ischemia either. He was actually doing fairly well on his prior medical regimen. I suggested re-initiated Entresto at a lower dose, continuing metoprolol succinate and taking daily Lasix. He would likely be a good candidate for an SG LT 2 inhibitor as well although he has had some financial concerns regarding Entresto and he may have similar concerns with Jardiance or Farxiga. History of Present Illness Reason for Consultation: Shortness of breath, cardiomyopathy Requesting Physician: Lizette Attending Physician: Kayla Bauer MD History of Present Illness The patient is a 52-year-old gentleman with a known history of a presumed nonischemic cardiomyopathy who presented to the hospital with worsening dyspnea on exertion. Patient states that for several days leading up to his admission he is becoming more short of breath. He also noticed some increasing abdominal girth. He did not report exertional chest pain or dizziness. He did not notice lower extremity edema. He did report discontinuing certain medications. In the past the patient had been on a regimen consisting of Entresto, metoprolol and Lasix. However, he discontinued all these medications due to concerns over side effects. He felt like the current dose of Entresto was causing palpitations. He felt that the metoprolol was causing some sleepiness and fatigue. It is unclear why he did not take more regular doses of his Lasix, but did take a double dose earlier this week. Generally speaking, he has not taken Lasix regularly for a couple of weeks. He seems to follow a high sodium diet. Often eating lunch meat. He appears to be very sedentary. He avoids strenuous activity due primarily to a prior left ankle injury. He did undergo some diuresis here in the hospital. His breathing seems to be much improved. He was actually ambulating around the [place] quite rapidly earlier today without limiting dyspnea. Allergies Allergy/AdvReac Type Severity Reaction Status Date / Time No Known Drug Allergies Allergy . Verified 06/11/23 01:09 Home Medications Medication Instructions Recorded Confirmed Type carvedilol 3.125 mg tablet 3.125 mg PO BIDM #60 tabs 06/12/23 Rx cephalexin 500 mg capsule 500 mg PO QID #20 caps 06/12/23 Rx furosemide 40 mg tablet 40 mg PO QAM #30 tabs 06/12/23 Rx metformin 500 mg tablet 500 mg PO BIDM #60 tabs 06/12/23 Rx sacubitril 24 mg-valsartan 26 mg 1 tab PO BID #60 tabs 06/12/23 Rx tablet (Entresto) Patient History Medical History (Updated 06/11/23 @ 12:38 by Kayla Bauer MD) Dyspnea on exertion ADD (attention deficit disorder) ? pt unsure of reason for taking adderall; says prescibed by psych. History of recent fall With injury to rt foot; says "I was lightheaded and fell" denies losing consciousness Cardio aware- pt did report BP 95/68 and 103/70 day after fall- cardio did d/c Spironolactone and weaning off Lasix Nonischemic cardiomyopathy DM type 2 (diabetes mellitus, type 2) diet controlled Poor historian HLD (hyperlipidemia) HTN (hypertension) Morbid obesity Venous insufficiency CHF (congestive heart failure) Follows with Dr. Nelson Cloud on chronic systolic (congestive) heart failure Pleural effusion evidence of pleural effusions during hospitalization @ [facility] 03/2020 Hyperglycemia Bilateral pleural effusion Surgical History History of tooth extraction Family History Other No family history of adverse response to anesthesia Social History Smoking Status: Never smoker Second Hand Exposure: No; Do You Dip or Chew Tobacco: No; Hx Alcohol Use: No Hx Substance Use: No Preferred Language: Kuwaiti Communication Ability: Effective Consumer Insights Intern Required: No Beliefs That Will Affect Care: None Current Living Situation: Parent Current Living Situation Comment: Afshan (mother) Feels Safe at Home: Yes Assistive Devices: None Review of Systems Review of Systems: Per HPI. No orthopnea. Physical Exam Physical Exam: The patient is alert and oriented. Mood and affect appeared normal. He answered all questions appropriately. HEENT: Pupils are equal and reactive to light and accommodation. Extraocular movements are intact. The sclerae are anicteric. Neuro: Cranial nerves intact Lungs: Some bronchial breath sounds. Normal respiratory effort. No expiratory wheezing. No rales. Cardiac: Heart demonstrates a regular rate and rhythm. Normal S1 and S2. No murmurs on examination. Pulses: The patient has palpable radial pulses bilaterally that are equal in intensity Extremities: There was no evidence of hypoperfusion. There is no cyanosis or clubbing. There is no edema. Skin: I did not appreciate any rashes on examination today. Results & Data Vital Signs (Past 12 Hours) Vital Signs Temp Pulse Pulse Resp BP BP Pulse Ox 06/12/23 13:26 36.8 C 81 89 20 147/101 H 96/64 L 96 06/12/23 11:47 36.8 C 89 20 96/64 L 96 06/12/23 07:57 06/12/23 07:30 36.7 C 87 16 117/83 97 06/12/23 03:48 36.5 C 81 18 99/66 L 96 O2 Del Method 06/12/23 13:26 06/12/23 11:47 Room Air 06/12/23 07:57 Room Air 06/12/23 07:30 Room Air 06/12/23 03:48 Room Air Laboratory Results Abnormal Lab Results 06/11/23 06/11/23 06/11/23 14:23 17:16 19:50 WBC RBC Hgb Hct MCV MCH MCHC RDW Std Deviation RDW Coeff of Rupinder Plt Count MPV Immature Gran % (Auto) Neut % (Auto) Lymph % (Auto) Johnson % (Auto) Eos % (Auto) Baso % (Auto) Neut # (Auto) Lymph # (Auto) Johnson # (Auto) Eos # (Auto) Baso # (Auto) Immature Gran # (Auto) Sodium Potassium Chloride Carbon Dioxide Anion Gap BUN Creatinine Est Cr Clr Drug Dosing Est GFR ( Amer) Est GFR (Non-Af Amer) BUN/Creatinine Ratio Glucose POC Glucose 175 H 145 H Calcium Troponin I High Sens 30.1 H 06/12/23 06/12/23 07:50 08:23 WBC 8.73 RBC 4.81 Hgb 13.1 L Hct 41.1 L MCV 85.4 MCH 27.2 MCHC 31.9 L RDW Std Deviation 46.5 H RDW Coeff of Rupinder 14.9 H Plt Count 208 MPV 12.8 H Immature Gran % (Auto) 0.3 Neut % (Auto) 59.9 Lymph % (Auto) 29.0 Johnson % (Auto) 8.0 Eos % (Auto) 2.3 Baso % (Auto) 0.5 Neut # (Auto) 5.23 Lymph # (Auto) 2.53 Johnson # (Auto) 0.70 H Eos # (Auto) 0.20 Baso # (Auto) 0.04 Immature Gran # (Auto) 0.03 Sodium 136 Potassium 3.7 Chloride 103 Carbon Dioxide 25 Anion Gap 8 BUN 17 Creatinine 1.00 Est Cr Clr Drug Dosing 114.0 Est GFR ( Amer) 101.3 Est GFR (Non-Af Amer) 87.4 BUN/Creatinine Ratio 17.0 Glucose 154 H POC Glucose 143 H Calcium 8.3 L Troponin I High Sens Diagnostic Findings Abnormal Lab Results 06/11/23 06/11/23 06/11/23 14:23 17:16 19:50 WBC RBC Hgb Hct MCV MCH MCHC RDW Std Deviation RDW Coeff of Rupinder Plt Count MPV Immature Gran % (Auto) Neut % (Auto) Lymph % (Auto) Johnson % (Auto) Eos % (Auto) Baso % (Auto) Neut # (Auto) Lymph # (Auto) Johnson # (Auto) Eos # (Auto) Baso # (Auto) Immature Gran # (Auto) Sodium Potassium Chloride Carbon Dioxide Anion Gap BUN Creatinine Est Cr Clr Drug Dosing Est GFR ( Amer) Est GFR (Non-Af Amer) BUN/Creatinine Ratio Glucose POC Glucose 175 H 145 H Calcium Troponin I High Sens 30.1 H 06/12/23 06/12/23 07:50 08:23 WBC 8.73 RBC 4.81 Hgb 13.1 L Hct 41.1 L MCV 85.4 MCH 27.2 MCHC 31.9 L RDW Std Deviation 46.5 H RDW Coeff of Rupinder 14.9 H Plt Count 208 MPV 12.8 H Immature Gran % (Auto) 0.3 Neut % (Auto) 59.9 Lymph % (Auto) 29.0 Johnson % (Auto) 8.0 Eos % (Auto) 2.3 Baso % (Auto) 0.5 Neut # (Auto) 5.23 Lymph # (Auto) 2.53 Johnson # (Auto) 0.70 H Eos # (Auto) 0.20 Baso # (Auto) 0.04 Immature Gran # (Auto) 0.03 Sodium 136 Potassium 3.7 Chloride 103 Carbon Dioxide 25 Anion Gap 8 BUN 17 Creatinine 1.00 Est Cr Clr Drug Dosing 114.0 Est GFR ( Amer) 101.3 Est GFR (Non-Af Amer) 87.4 BUN/Creatinine Ratio 17.0 Glucose 154 H POC Glucose 143 H Calcium 8.3 L Troponin I High Sens Echocardiogram obtained 06/11/2023: Moderately reduced LV systolic function with ejection fraction 30%. Moderate global hypokinesis. Left pleural effusion. ECG Additional Comments: Rhythm sinus tachycardia with nonspecific interventricular conduction delay consistent with left ventricular hypertrophy. PG Care Time/CCT Total # of Minutes Spent Total Time Spent with Patient: Total time spent is greater than 50% in coordination of care (as documented) at patient's floor/unit and/or counseling patient: Coding Level of Care Code 20664 IN/OBS CONSULT LVL 4,60M Diagnoses Acute exacerbation of CHF (congestive heart failure) I50.9 ROMANO (dyspnea on exertion) R06.09 Cardiomyopathy I42.9
[2023-06-12] MEDS ORDERED: metFORMIN HCL 500 MG TAB PO SCH (17:00)
[2023-06-13] MEDS ORDERED: FUROSEMIDE 40 MG TAB PO SCH (09:00)
== END 2023-06-12 13:27 | disposition home or self-care (01) | DRG 186 ==
LOC: ED 19:53 → 2N 23:56 → SUATTDRO 23:56 → 2N 06-11 01:18